=== PATIENT | female | born 1990 | race Hispanic/Latino ===

== ENCOUNTER 2018-07-18 14:01 | Emergency (ER) | payer OTHER ==
--- OUTSIDE RECORDS SUMMARY | 2018-07-18 14:04 | XMS REPORT ---
:1990 Author Organization eClinicalWorks Care Team Providers Name Role Phone Kp Lenny Provider Role Unavailable Allergies No Known Allergies Problems Problem Type Condition Code Onset Dates Condition Status Assessment Prediabetes R73.03 Active Assessment Learning difficulty F81.9 Active Assessment Elevated BP without diagnosis of R03.0 Active hypertension Assessment Adult BMI 50.0-59.9 kg/sq m Z68.43 Active Problem Iron deficiency anemia due to D50.0 Active chronic blood loss Problem STEFANIA (obstructive sleep apnea) G47.33 Active Problem Learning difficulty F81.9 Active Problem Adult BMI 50.0-59.9 kg/sq m Z68.43 Active Assessment Iron deficiency anemia due to D50.0 Active chronic blood loss Problem Elevated BP without diagnosis of R03.0 Active hypertension Problem Prediabetes R73.03 Active Medications Medication Code Code Instructions Start End Date Status Dosage System Date Estarylla [facility] 32542580829 0.25-35 MG-MCG Active 1 tablet Orally Once a day Metformin HCl [facility] 96376823669 500 MG Orally Active 1 tablet Twice a day with meals Ferrous [facility] 87421189613 325 (65 Fe) MG Active 1 tablet Sulfate Orally Twice a day Results No Known Results Summary Purpose eClinicalWorks Submission
--- OUTSIDE RECORDS SUMMARY | 2018-07-18 14:04 | XMS REPORT ---
:1990 Author Organization eClinicalWorks Care Team Providers Name Role Phone Flora Goodrichh Provider Role Unavailable Allergies, Adverse Reactions, Alerts Substance Reaction Event Type N.K.D.A. Info Not Available Non Drug Allergy Problems Problem Type Condition Code Onset Dates Condition Status Assessment Prediabetes R73.03 Active Assessment STEFANIA (obstructive sleep apnea) G47.33 Active Problem Elevated BP without diagnosis of R03.0 Active hypertension Problem Prediabetes R73.03 Active Problem STEFANIA (obstructive sleep apnea) G47.33 Active Assessment Adult BMI 50.0-59.9 kg/sq m Z68.43 Active Assessment Elevated BP without diagnosis of R03.0 Active hypertension Problem Adult BMI 50.0-59.9 kg/sq m Z68.43 Active Assessment Encounter for preventative adult Z00.01 Active health care exam with abnormal findings Medications Medication Code Code Instructions Start End Date Status Dosage System Date Estarylla [facility] 16801251464 0.25-35 MG-MCG Active 1 tablet Orally Once a day Metformin HCl [facility] 37292943898 500 MG Orally Active 1 tablet Twice a day with meals Results No Known Results Summary Purpose eClinicalWorks Submission
--- OUTSIDE RECORDS SUMMARY | 2018-07-18 14:05 | XMS REPORT ---
:1990 Author Organization eClinicalWorks Care Team Providers Name Role Phone Lenny Goodrich Provider Role Unavailable Allergies No Known Allergies Problems Problem Type Condition Code Onset Dates Condition Status Problem Iron deficiency anemia due to D50.0 Active chronic blood loss Problem STEFANIA (obstructive sleep apnea) G47.33 Active Problem Learning difficulty F81.9 Active Problem Adult BMI 50.0-59.9 kg/sq m Z68.43 Active Problem Elevated BP without diagnosis of R03.0 Active hypertension Problem Prediabetes R73.03 Active Medications No Known Medications Results No Known Results Summary Purpose eClinicalWorks Submission
--- OUTSIDE RECORDS SUMMARY | 2018-07-18 14:05 | XMS REPORT ---
:1990 Author Organization eClinicalWorks Care Team Providers Name Role Phone Lenny Goodrich Provider Role Unavailable Allergies, Adverse Reactions, Alerts Substance Reaction Event Type N.K.D.A. Info Not Available Non Drug Allergy Problems Problem Type Condition Code Onset Dates Condition Status Assessment Neutrophilic leukocytosis D72.9 Active Problem Adult BMI 50.0-59.9 kg/sq m Z68.43 Active Problem Intellectual disability F79 Active Problem Neutrophilic leukocytosis D72.9 Active Problem Learning difficulty F81.9 Active Problem Elevated BP without diagnosis of R03.0 Active hypertension Problem Prediabetes R73.03 Active Problem Iron deficiency anemia due to D50.0 Active chronic blood loss Problem STEFANIA (obstructive sleep apnea) G47.33 Active Assessment Prediabetes R73.03 Active Assessment Elevated BP without diagnosis of R03.0 Active hypertension Assessment Learning difficulty F81.9 Active Assessment Intellectual disability F79 Active Assessment Adult BMI 50.0-59.9 kg/sq m Z68.43 Active Assessment Iron deficiency anemia due to D50.0 Active chronic blood loss Medications Medication Code Code Instructions Start End Date Status Dosage System Date Metformin HCl [facility] 44202029983 500 MG Orally Active 1 tablet Twice a day with meals Ferrous [facility] 97327011864 325 (65 Fe) MG Active 1 tablet Sulfate Orally Twice a day Estarylla [facility] [id number] 0.25-35 MG-MCG Active 1 tablet Orally Once a day Results No Known Results Summary Purpose eClinicalWorks Submission
--- OUTSIDE RECORDS SUMMARY | 2018-07-18 14:05 | XMS REPORT ---
:1990 Author Organization eClinicalWorks Care Team Providers Name Role Phone Lenny Goodrich Provider Role Unavailable Allergies No Known Allergies Problems Problem Type Condition Code Onset Dates Condition Status Assessment Iron deficiency anemia due to D50.0 Active chronic blood loss Problem Iron deficiency anemia due to D50.0 Active chronic blood loss Problem STEFANIA (obstructive sleep apnea) G47.33 Active Problem Learning difficulty F81.9 Active Problem Adult BMI 50.0-59.9 kg/sq m Z68.43 Active Problem Elevated BP without diagnosis of R03.0 Active hypertension Problem Prediabetes R73.03 Active Medications Medication Code Code Instructions Start End Date Status Dosage System Date Ferrous [facility] [id number] 325 (65 Fe) MG Active 1 tablet Sulfate Orally Twice a day Results No Known Results Summary Purpose eClinicalWorks Submission
--- NOTE | 2018-07-18 14:47 | RAD REPORT ---
EXAM DESCRIPTION: CT - Head Brain Wo Cont - 07/18/2018 2:38 pm CLINICAL HISTORY: HEADACHE Drowsiness COMPARISON: No comparisons TECHNIQUE: All CT scans are performed using dose optimization technique as appropriate and may inclu de automated exposure control or mA/KV adjustment according to patient size. FINDINGS: No intracranial hemorrhage, hydrocephalus or extra-axial fluid collection.No areas of brai n edema or evidence of midline shift. 12 mm mucous retention cyst versus polyp is present in the right maxillary antrum. The paranasal sinu ses and mastoids are otherwise clear. The calvarium is intact. IMPRESSION: No acute intracranial abnormality.
[2018-07-18 14:58] LABS: Urine Blood NEGATIVE (NEG); Urine Glucose NEGATIVE (NEG); Urine Protein 1+ (NEG); Urine Specific Gravity 1.025 (1.005-1.030)
[2018-07-18] MEDS ORDERED: METOCLOPRAMIDE 10 MG/2mL INJ ONE (15:56)
[2018-07-18] MEDS ORDERED: KETOROLAC 30 MG/ML INJ ONE (15:57)
[2018-07-18] MEDS ORDERED: NA CHLORIDE 0.9% 1,000 ML ONE (15:57)
--- NOTE | 2018-07-18 16:50 | EDPHYS ---
Physician Documentation [facility] Name: Cherise Seay Age: 27 yrs Sex: Female : 1990 Arrival Date: 07/18/2018 Time: 14:04 Bed 23 Private MD: Flora Goodrichh ED Physician Colt Mai HPI: 07/18 16:08 This 27 yrs old Female presents to ER via Ambulatory with complaints of gs Headache, Vomiting, Dizziness. 16:08 The patient complains of pain to the forehead. The patient describes the headache as gs throbbing. Onset: The symptoms/episode began/occurred suddenly, this morning, at 08:00. Associated signs and symptoms: Pertinent positives: vomiting, Pertinent negatives: altered mental status. Severity of symptoms: At its worst the pain was severe, in the emergency department the pain has improved, moderately. Headache History: The patient has had previous headaches and this one is similar to previous episodes, and this one is less severe than previous episodes. The symptoms are alleviated by nothing. the symptoms are aggravated by nothing. The patient has experienced similar episodes in the past, a few times. The patient has not recently seen a physician. 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 - Social history:: Smoking status: Patient/guardian denies using tobacco. - Ebola Screening: : Patient denies travel to an Ebola-affected area in the 21 days before illness onset. ROS: 16:08 All other systems are negative. gs Exam: 16:12 Head/Face: Normocephalic, atraumatic. Eyes: Pupils equal round and reactive to light, gs extra-ocular motions intact. Lids and lashes normal. Conjunctiva and sclera are non-icteric and not injected. Cornea within normal limits. Periorbital areas with no swelling, redness, or edema. ENT: Nares patent. No nasal discharge, no septal abnormalities noted. Tympanic membranes are normal and external auditory canals are clear. Oropharynx with no redness, swelling, or masses, exudates, or evidence of obstruction, uvula midline. Mucous membranes moist. Neck: Trachea midline, no thyromegaly or masses palpated, and no cervical lymphadenopathy. Supple, full range of motion without nuchal rigidity, or vertebral point tenderness. No Meningismus. Chest/axilla: Normal chest wall appearance and motion. Nontender with no deformity. No lesions are appreciated. Cardiovascular: Regular rate and rhythm with a normal S1 and S2. No gallops, murmurs, or rubs. Normal PMI, no JVD. No pulse deficits. Respiratory: Lungs have equal breath sounds bilaterally, clear to auscultation and percussion. No rales, rhonchi or wheezes noted. No increased work of breathing, no retractions or nasal flaring. Abdomen/GI: Soft, non-tender, with normal bowel sounds. No distension or tympany. No guarding or rebound. No evidence of tenderness throughout. Back: No spinal tenderness. No costovertebral tenderness. Full range of motion. Skin: Warm, dry with normal turgor. Normal color with no rashes, no lesions, and no evidence of cellulitis. MS/ Extremity: Pulses equal, no cyanosis. Neurovascular intact. Full, normal range of motion. Neuro: Awake and alert, GCS 15, oriented to person, place, time, and situation. Cranial nerves II-XII grossly intact. Motor strength 5/5 in all extremities. Sensory grossly intact. Cerebellar exam normal. Normal gait. 16:12 Constitutional: The patient appears alert, awake. Vital Signs: 14:14 BP 122 / 60; Pulse 80; Resp 18; Temp 97.7; Pulse Ox 100% on R/A; Height 4 ft. 9 in. aj1 (144.78 cm) (R); Pain 10/10; 15:28 BP 121 / 86; Pulse 77; Resp 16; Pulse Ox 98% on R/A; kr2 16:30 BP 114 / 72; Pulse 75; Resp 16; Pulse Ox 100% on R/A; kr2 16:39 Pulse 75; Resp 18; Pulse Ox 100% on R/A; mg2 MDM: 15:35 Patient medically screened. gs 16:12 Differential diagnosis: migraine, subarachnoid bleed, tension headache, vasomotor gs headache. Data reviewed: vital signs, nurses notes. Response to treatment: the patient's symptoms have resolved after treatment, and as a result, I will discharge patient. 07/18 14:36 Order name: Urine Dipstick--Ancillary (enter results); Complete Time: 15:20 bd 07/18 14:36 Order name: Urine --Ancillary (enter results); Complete Time: 15:20 bd 07/18 14:18 Order name: CT Head Brain wo Cont; Complete Time: 15:20 aj1 07/18 15:39 Order name: Fingerstick Glucose; Complete Time: 15:55 gs Administered Medications: 15:54 Drug: NS 0.9% 1000 ml Route: IV; Rate: 1 bolus; Site: left antecubital; kr2 17:00 Follow up: Response: No adverse reaction; IV Status: Completed infusion kr2 15:54 Drug: Reglan 5 mg Route: IVP; Site: left antecubital; kr2 16:30 Follow up: Response: No adverse reaction; Nausea is decreased kr2 15:54 Drug: TORadol 15 mg Route: IVP; Site: left antecubital; kr2 16:30 Follow up: Response: No adverse reaction; Pain is decreased kr2 Point of Care Testing: Blood Glucose: 15:50 Blood Glucose: 129 mg/dL; kr2 Ranges: Critical Glucose Levels:Adult <50 mg/dl or >400 mg/dl <40 mg/dl or >180 mg/dl Disposition: 07/18/18 16:49 Discharged to Home. Impression: Headache. - Condition is Stable. - Discharge Instructions: General Headache Without Cause. - Medication Reconciliation Form, Thank You Letter, Antibiotic Education, Prescription Opioid Use form. - Follow up: Asher Jackman MD; When: 2 - 3 days; Reason: Re-evaluation by your physician. Signatures: Dispatcher [employer] Angi Garcia RN RN aj1 Colt Mai MD MD gs Reaves, Karey, RN RN kr2 Corrections: (The following items were deleted from the chart) 17:03 16:49 07/18/2018 16:49 Discharged to Home. Impression: Headache. Condition is Stable. kr2 Forms are Medication Reconciliation Form, Thank You Letter, Antibiotic Education, Prescription Opioid Use. Follow up: Asher Jackman; When: 2 - 3 days; Reason: Re-evaluation by your physician. gs
--- NOTE | 2018-07-18 16:50 | ER ---
Nurse's Notes [facility] Name: Cherise Seay Age: 27 yrs Sex: Female : 1990 Arrival Date: 07/18/2018 Time: 14:04 Bed 23 Private MD: Lenny Goodrich Diagnosis: Headache Presentation: 07/18 14:12 Presenting complaint: Patient states: Headache, vomiting, and dizziness since 0800 this aj1 morning. Denies head injury, denies LOC. Denies fever. Transition of care: patient was not received from another setting of care. Onset of symptoms was July 18, 2018 at 08:00. Risk Assessment: Do you want to hurt yourself or someone else? Patient reports no desire to harm self or others. Initial Sepsis Screen: Does the patient meet any 2 criteria? No. Patient's initial sepsis screen is negative. Does the patient have a suspected source of infection? No. Patient's initial sepsis screen is negative. Care prior to arrival: None. 14:12 Method Of Arrival: Ambulatory aj 14:12 Acuity: BORIS 3 aj1 Triage Assessment: 14:14 Headache History: The patient has had previous headaches and this one is more severe aj1 than previous episodes. General: Appears uncomfortable, Behavior is calm, cooperative, appropriate for age. Pain: Complains of pain in forehead Pain does not radiate. Pain currently is 10 out of 10 on a pain scale. Pain began 6 hours ago Also complains of nausea, dizziness, vomiting. Neuro: Level of Consciousness is awake, alert, Oriented to person, place, time, situation, Sheet Metal Fabricator are equal bilaterally Moves all extremities. Full function Gait is steady, Speech is normal, Facial symmetry appears normal, Reports dizziness, headache vomiting. Cardiovascular: Patient's skin is warm and dry. Respiratory: Airway is patent Respiratory effort is even, unlabored, Respiratory pattern is regular, symmetrical. 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 - Social history:: Smoking status: Patient/guardian denies using tobacco. - Ebola Screening: : Patient denies travel to an Ebola-affected area in the 21 days before illness onset. Screenin:27 Abuse screen: Denies threats or abuse. Denies injuries from another. Nutritional kr2 screening: No deficits noted. Tuberculosis screening: No symptoms or risk factors identified. Fall Risk None identified. Assessment: 15:25 General: Appears in no apparent distress. uncomfortable, obese, well groomed, Behavior kr2 is calm, cooperative, appropriate for age. Pain: Complains of pain in forehead Pain radiates to top of head. Neuro: Level of Consciousness is awake, alert, obeys commands, Oriented to person, place, time, situation, Sheet Metal Fabricator are equal bilaterally Moves all extremities. Speech is normal, Facial symmetry appears normal, Pupils are PERRLA, Intact. Neuro: Reports dizziness. Cardiovascular: Capillary refill < 3 seconds in bilateral fingers Patient's skin is warm and dry. Respiratory: Airway is patent Respiratory effort is even, unlabored, Respiratory pattern is regular, symmetrical. GI: Abdomen is non-distended, obese, Reports nausea, vomiting, since 0800 this morning. : Denies burning with urination. EENT: Oral mucosa is moist. Derm: Skin is intact, is healthy with good turgor, Skin is pink, warm \T\ dry. Musculoskeletal: Circulation, motion, and sensation intact. 16:30 Reassessment: Patient appears in no apparent distress at this time. Patient and/or kr2 family updated on plan of care and expected duration. Pain level reassessed. Patient is alert, oriented x 3, equal unlabored respirations, skin warm/dry/pink. Patient denies pain at this time. Patient states feeling better. Patient states symptoms have improved. Vital Signs: 14:14 BP 122 / 60; Pulse 80; Resp 18; Temp 97.7; Pulse Ox 100% on R/A; Height 4 ft. 9 in. aj1 (144.78 cm) (R); Pain 10/10; 15:28 BP 121 / 86; Pulse 77; Resp 16; Pulse Ox 98% on R/A; kr2 16:30 BP 114 / 72; Pulse 75; Resp 16; Pulse Ox 100% on R/A; kr2 16:39 Pulse 75; Resp 18; Pulse Ox 100% on R/A; mg2 ED Course: 14:04 Patient arrived in ED. as 14:04 Lenny Goodrich DO is Private Physician. as 14:14 Triage completed. aj1 14:14 Arm band placed on Patient placed in waiting room, Patient notified of wait time. aj1 14:38 CT Head Brain wo Cont In Process Unspecified. EDMS 15:21 Colt Mai MD is Attending Physician. gs 15:25 Chelo Lomeli, PATRICIA is Primary Nurse. kr2 15:28 Patient has correct armband on for positive identification. Bed in low position. Call kr2 light in reach. Side rails up X2. Adult w/ patient. Pulse ox on. NIBP on. Door closed. Warm blanket given. Head of bed elevated. 15:50 Inserted saline lock: 22 gauge in left antecubital area, using aseptic technique. kr2 16:49 Asher Jackman MD is Referral Physician. gs 17:01 No provider procedures requiring assistance completed. IV discontinued, intact, kr2 bleeding controlled, No redness/swelling at site. Pressure dressing applied. Administered Medications: 15:54 Drug: NS 0.9% 1000 ml Route: IV; Rate: 1 bolus; Site: left antecubital; kr2 17:00 Follow up: Response: No adverse reaction; IV Status: Completed infusion kr2 15:54 Drug: Reglan 5 mg Route: IVP; Site: left antecubital; kr2 16:30 Follow up: Response: No adverse reaction; Nausea is decreased kr2 15:54 Drug: TORadol 15 mg Route: IVP; Site: left antecubital; kr2 16:30 Follow up: Response: No adverse reaction; Pain is decreased kr2 Point of Care Testing: Blood Glucose: 15:50 Blood Glucose: 129 mg/dL; kr2 Ranges: Outcome: 16:49 Discharge ordered by . gs 17:01 Discharged to home ambulatory, with family. kr2 17:01 Condition: good 17:01 Discharge instructions given to patient, Instructed on discharge instructions, follow up and referral plans. Demonstrated understanding of instructions, follow-up care. 17:03 Patient left the ED. kr2 Signatures: Dispatcher [employer] EDOK Angi Padilla RN RN aj1 Shamika Pate as Colt Mai MD MD Chelo Lomeli RN RN kr2 Gardose, Amaury, RN RN mg2
[2018-07-18 17:07] VITALS: TEMP 97.7
[2018-07-18 17:09] VITALS: BP 114/72; O2SAT 100
== END 2018-07-18 17:03 | disposition home or self-care (01) ==
LOC: ER 14:01
DX: R51 Headache (principal); E11.9 Type 2 diabetes mellitus without complications
CPT/HCPCS: 70450; 81003; 81025; 82962; 96361; 96374; 96375; 99284; J2765; J7030

== ENCOUNTER 2021-04-11 22:32 | Emergency (ER) | payer MEDICAID, OTHER ==
--- OUTSIDE RECORDS SUMMARY | 2021-04-11 22:41 | XMS REPORT | Continuity of Care Document ---
:1990 Author Organization [facility] t Address [address] [place] [address] Care Team Providers Name Role Phone Linh MARY Attending Clinician Mayte Earl Attending Clinician Angela Delaney MD Attending Clinician RICARDO DELANEY Attending Clinician Unavailable Ricardo Delaney MD Attending Clinician [phone] Attending Clinician Christina Desir NP Attending Clinician Chelo Samuels PhD Attending Clinician JACK RAMIRES Attending Clinician Unavailable RICARDO DELANEY Admitting Clinician Unavailable JACK RAMIRES Admitting Clinician Unavailable Payers Payer Name Policy Type Policy Effective Date Expiration Date Sour ce Number PACE [id number] [facility] MEDICAIDMEDICAID 00:00:00 - [place] [id number]/ Ce nter 9-Present Problems Condition Condition Condition Status Onset Resolution Last Treating Co mments Source Name Details Category Date Date Treatment Clinician Date Morbid Morbid Disease Active [facility] Allergies, Adverse Reactions, Alerts This patient has no known allergies or adverse reactions. Social History Social Habit Start Date Stop Date Quantity Comments Source History [facility] - Alcohol Std Drinks [facility] [place] Binge Medical Dev ter Sex Assigned At [facility] Tobacco use and 2020-05-22 2020-05-22 [facility] used [facility] - exposure 00:00:00 00:00:00 Medical [place] Alcohol intake 2020-05-22 2020-05-22 Current [facility] es - 00:00:00 00:00:00 non-drinker of Medical Ce nter alcohol (finding) History [facility] 2019-04-22 2019-04-[address] [facility] - Alcohol Frequency 00:00:00 00:00:00 [facility] Smoking Status Start Date Stop Date Source Never smoker [facility] edical [place] Medications Ordered Filled Start Stop Current Ordering Indication Dosage Frequency Signature Comments Components Source Medication Medication Date Date Medication? Clinician (SIG) Name Name norgestimat Yes 1{tbl} QD Take [address] e-ethinyl 8-13 tablet by [facility] - estradiol 15:09: mouth Medical (FEMYNOR) 20 daily. Center 0.25-35 mg-mcg per tablet metFORMIN 2020- No 1000mg Take 1,[address] [facility] (GLUCOPHAGE 8- 08-13 mg by [facility] - ) 1000 MG 09:24: 00:00 mouth 2 Medi nicole tablet 40 :00 (two) Center times daily with breakfast and dinner. dapaglifloz 2019- 2020- No QD Take by [facility] in-metformi 8- 08-13 mouth [facility] - n (XIGDUO 09:24: 00:00 daily. Medic al XR) 5-1,000 40 :00 Center mg per ER tablet famotidine 2019- 2020- No 20mg QD Take [address] (PEPCID) 20 8-13 11-11 tablet (20 L ukes - MG tablet 00:00: 23:59 mg total) Me dical 00 :00 by mouth Center daily for 90 days. acetaminoph 2020-0 2020- No 1000mg Take [address] en 05-21- tablets [facility] - (TYLENOL) 00:00: 23:59 (1,000 mg Me dical 500 MG 00 :00 total) by Center tablet mouth every 6 (six) hours for 10 days. traMADoL 2019- No 50mg Take [address] (ULTRAM) 50 05-21- tablet (50 L ukes - mg tablet 00:00: 23:59 mg total) Me dical 00 :00 by mouth Center every 6 (six) hours as needed for up to 10 days. Max Daily Amount: 200 mg traMADoL 2019- No 50mg Take [address] (ULTRAM) 50 05-21 tablet (50 L ukes - mg tablet 00:00: 00:00 mg total) Me dical 00 :00 by mouth Center every 6 (six) hours as needed for up to 10 days. Max Daily Amount: 200 mg Xigduo XR Xigduo XR 2019- No Lenny [address] 02-04- [facility] [facility] - 00:00: 00:00 Memoria 00 :00 [facility] ent [facility] Ferrous Ferrous Yes Lenny [address] Sulfate Sulfate [facility] Estarylla Estarylla Yes Lenny [address] [facility] kes - Memoria [facility] ent [facility] Immunizations Ordered Filled Immunization Date Status Comments [facility] e Immunization Name Name Afluria single dose Afluria single dose 2019-09-[address] [facility] - 00:00:00 [facility] Vital Signs Vital Name Observation Time Observation Value Comments Source Heart rate 2020-05-21 11:55:00 70 /min [facility] Respiratory rate 2020-05-21 11:55:00 18 /min [facility] Oxygen saturation in 2020-05-21 11:55:00 96 /min [facility] - Arterial blood by Medical Ce nter Pulse oximetry Systolic blood 2020-05-21 11:30:00 138 mm[Hg] [facility] Diastolic blood 2020-05-21 11:30:00 63 mm[Hg] [facility] S t [facility] Body temperature 2020-05-21 11:30:00 36.56 Charlette [facility] Body height 2020-05-20 09:00:00 144.8 cm [facility] Body weight 2020-05-20 09:00:00 113.2 kg [facility] BMI 2020-05-20 09:00:00 54.00 kg/m2 [facility] Procedures Procedure Date / Time Performed Performing Clinician [facility] e RHYTHM STRIP - SCAN 2020-05-22 13:31:17 Provider, Wong [facility] POCT-GLUCOSE METER 2020-05-21 11:32:00 Nanci Delaney [facility] POCT-GLUCOSE METER 2020-05-21 07:36:00 Nanci Delaney [facility] BASIC METABOLIC PANEL 2020-05-21 05:55:00 Stan Nelson [address] CBC W/PLT COUNT & AUTO 2020-05-21 05:55[facility] 2020-05-21 05:55:00 [facility] Stan [facility] PHOSPHORUS 2020-05-21 05:55:00 [facility] POCT-GLUCOSE METER 2020-05-21 05:49:00 Nanci Delaney [facility] POCT-GLUCOSE METER 2020-05-20 18:27:00 Nanci Delaney [facility] TISSUE EXAM 2020-05-20 17:33:00 Nanci Delaney [facility] ROBOTIC 2020-05-20 13:35:[address] [facility] - LAPAROSCOPY,LONGITUDINAL [facility] SLEEVE GASTRECTOMY UPPER ENDOSCOPY 2020-05-20 13:35:00 Nanci Delaney [facility] PROCEDURE W/ DAVINCI XI 2020-05-20 13:35:00 Racheal Delaney [facility] BASIC METABOLIC PANEL 2020-05-20 10:06:00 Federico Ritter [address] HEMOGLOBIN 2020-05-20 10:06:00 Federico Ritter [facility] POCT , URINE 2020-05-20 09:48:00 Federico Ritter [facility] POCT-GLUCOSE METER 2020-05-20 09:35:00 Nanci Delaney [facility] Plan of Care Planned Activity Planned Date Details Comments Source Future Scheduled 2020-10-[address] [facility] - Test 00:00:00 (12+) [code = [facility] DEPRESSION SCREENING (12+)] Future Scheduled [address] [facility] - Test 00:00:00 malignant neoplasm of Medica l Center cervix (procedure) [code = 111195744] Future Scheduled [address] [facility] - Test 00:00:00 (procedure) [code = [facility] 06387876] Future Scheduled 2011 DTAP/TDAP/TD VACCINES [facility] Test 00:00:00 (1 - Tdap) [code = Medical C enter DTAP/TDAP/TD VACCINES (1 - Tdap)] Future Scheduled 2010 HEPATITIS C SCREENING [facility] - Test 00:00:00 [code = HEPATITIS C Medical Center SCREENING] Future Scheduled 2008 COVID-19 VACCINE (1) [facility] - Test 00:00:00 [code = COVID-[address] VACCINE (1)] Encounters Start End Encounter Admission Attending Care Care Encounter Source Date/Time Date/Time Type Type Clinicians Facility Department ID 2021-02-17 2021-02-17 Outpatient [facility] [id number] [facility] 2020-11-18 2020-11-18 Outpatient [facility] [id number] [facility] 2020-10-20 2020-10-20 Outpatient [facility] [id number] [facility] 2020-08-26 2020-08-26 Outpatient [facility] [id number] [facility] 2020-08-11 2020-08-11 Office CARLOS Melton [id number] 13:34:04 15:28:15 Visit Anabelle AMBULATOR 350.1.13.21 Y 0.2.7.2.686 [id number] 2020-08-11 2020-08-11 Office CARLOS Wynne [id number] 12:57:02 15:27:55 Visit Vimbai A AMBULATOR 350.1.13.21 Y 0.2.7.2.686 [id number] 2020-08-06 2020-08-06 Outpatient [facility] [id number] [facility] 2020-07-20 2020-07-20 Outpatient [facility] [id number] [facility] 2020-07-06 2020-07-06 Outpatient [facility] [id number] [facility] 2020-06-23 2020-06-23 [facility] [id number] 13:50:00 13:50:00 [facility] 2020-06-11 2020-06-11 Office Nolvia [facility] [id number] 14:22:31 16:46:21 Visit Nanci gresham AMBULATOR 350.1.13.21 G Y 0.2.7.2.686 [id number] 2020-06-11 2020-06-11 Office LinhCARLOS [id number] 14:23:28 16:45:22 Visit Anabelle AMBULATOR 350.1.13.21 Y 0.2.7.2.686 [id number] 2020-05-28 2020-05-28 Office CalebKwesijoshua [facility] [id number] 11:37:39 15:53:47 Visit Nanci gresham AMBULATOR 350.1.13.21 G Y 0.2.7.2.686 [id number] 2020-05-28 2020-05-28 Office Linh [facility] [id number] 11:37:17 15:53:20 Visit Anabelle AMBULATOR 350.1.13.21 Y 0.2.7.2.686 [id number] 2020-05-06 2020-05-06 [facility] [id number] 10:45:00 10:45:[address] Luke s - Drive [facility] Medicine Medicine Outpati ent Clinics 2020-04-24 2020-04-24 [facility] [id number] 08:24:00 08:24:[address] Luke s - Drive [facility] Medicine Outpati ent Clinics 2020-03-25 2020-03-25 [facility] [id number] 14:45:00 14:45:[address] Luke s - Drive [facility] Medicine Outpati ent Clinics 2020-02-27 2020-02-27 [facility] [id number] 10:00:00 10:00:[address] Luke s - Drive [facility] Medicine Outpati ent Clinics 2020-02-05 2020-02-05 [facility] [id number] 10:30:00 10:30:[address] Luke s - Drive [facility] Medicine Outpati ent Clinics 2019-11-06 2019-11-06 [facility] [id number] 10:15:00 10:15:[address] Luke s - Drive [facility] Medicine Medicine Outpati ent Clinics 2019-10-31 2019-10-31 Office KimbleRamesh [facility] [id number] 09:18:07 13:13:00 Visit Nanci gresham AMBULATOR 350.1.13.21 G Y 0.2.7.2.686 [id number] 2019-10-29 2019-10-29 [facility] [id number] 16:46:00 16:46:00 [facility] 2019-09-02 2019-09-02 [facility] [id number] [facility] St 14:15:00 14:15:00 [facility] 2019-07-25 2019-07-25 Office CARLOS Samuels [id number] 09:45:38 11:06:08 Visit Swapna AMBULATOR 350.1.13.21 Chelo Y 0.2.7.2.686 [id number] 2019-07-25 2019-07-25 Office CARLOS Melton [id number] 08:36:08 10:04:38 Visit Anabelle AMBULATOR 350.1.13.21 Y 0.2.7.2.686 [id number] 2019-07-08 2019-07-08 Outpatient Ruthie Hendrickst [id number] [facility] [address] 11:30:00 11:30:00 [facility] 2019-06-20 2019-06-20 Office CARLOS Samuels [id number] 11:59:31 13:59:31 Visit Swapna AMBULATOR 350.1.13.21 Chelo Y 0.2.7.2.686 [id number] 2019-06-17 2019-06-17 Office CARLOS Melton [id number] 09:18:50 13:16:45 Visit Anabelle AMBULATOR 350.1.13.21 Y 0.2.7.2.686 [id number] 2019-05-15 2019-05-15 Office CARLOS Melton [id number] 12:18:21 14:39:30 Visit Anabelle AMBULATOR 350.1.13.21 Y 0.2.7.2.686 [id number] 2018-11-30 2018-11-30 [facility] [id number] 09:30:00 09:30:00 [place] [facility] s - Drive [facility] Medicine Outpati ent Clinics 2018-07-25 2018-07-25 [facility] [id number] 14:30:00 14:30:00 [place] [employer] s - Drive [facility] Medicine Outpati ent Clinics 2018-05-25 2018-05-25 [facility] [id number] 10:00:00 10:00:00 [place] [employer] - Drive [facility] Medicine Outpati ent Clinics 2018-05-15 2018-05-15 [facility] [id number] 15:05:00 15:05:00 [place] [employer] - Drive [facility] Medicine Outpati ent Clinics 2018-04-17 2018-04-17 [facility] [id number] 14:59:00 14:59:00 [place] [employer] - Drive [facility] Medicine Outpati ent Clinics 2018-03-14 2018-03-14 [facility] [id number] 11:15:00 11:15:00 [place] [employer] - [place] [facility] Medicine Outpati ent Clinics 2018-01-24 2018-01-24 [facility] [id number] 13:30:00 13:30:00 t Collective s - Halalati [facility] Outpati ent Clinics Results Test Description Test Time Test Comments Results Result Comments Source Tissue Exam 2020-05-27 18:22:00 Test Item Value Reference Range Interpretation Comme nts Case Report (test code = 104) Surgical Pathology Report Case: [id number] Authorizing Provider: Nanci Delaney Collected: 05/20/2020 05:33 PM MD Ricardo Ordering Location: [facility] PERIOPER[facility]IVE Received: 05/21/2020 08:58 AM SERVICES Pathologist: Jennifer León MD Specimen: Stomach, partial gastrectomy ADDENDUM (test code = 3381) [id number]uTIGsiMR uZ [file] DgLWmhQUUrfVhwaB4aTeHoAwYsSZpmYXB7 DIAGNOSIS (test code = 3220) k8vyyQPfXZZzk6gzMDFkvPKtZzIdRtFpFqQeBp pcd DDiYDwvhlRoEMibb0WtU7OuCvFwCIlfblHkLVSkTo kgjzvwTIBtWDW5ilTdHYFvJQzuIWWcCUrpZk5ysKP ceVfiZeSwALPju6rspxPLbjmhpMj5l3dwMLMoIoK7 vSSaKFamA7vavkDtfRMcMZJgVRh1zZ11QLMdaZ1zu POeWRocplUwFjU7CLbhRVFiWpY7KXTspXPeAIZwX0 jfCCRtYNrbNRPrGQhnyEVhXTS0iHvuz3V7fKFqgMV fuAgoIhHtNoUvABLLw9WvJMq0qNexA0TwUVAoMlU3 tUGqGFKcTRyjPRYnNZJulvM4vS63EWkwhnL2pGMjg 7Npq63mu885uX3dbMPoUPD2KMXeHXJdaUMpEMUuVM M3KQHrbLBcR7w8DlFcxLTjW0U3GoKkvDSiP3Y0EyQ wjTMsY9C3BsVexEVyGPEsrYPnCo0ytTHnuOQacz2z td67PEG0v1VhoNvrXDL2YER9AkHoWf2soKQaYHKvP Z1cJwVkkKFsGSMyfj71lSupKLvqjnDipZ8wPqCiQK LdbYChRBAfLF4yqIIbGAJfnT0djnldGFHfRuEuyqm pXRKooWuctiIaSj7urJgrXHS6BPqzB4nigB4gDpH2 ANlfQ4vyxE3rKUe8STqjsNO7GLYeaX9pDF7woejkl 4ncGkPhCP4sblziy5giXoGrWP9bhtf2e7owBrRaDC 7iahkfd4czScAzZUivDXFakbcvSLPph9JvlhxkGTZ wf3YmC6FkqHpyZ56bgNwqK38jZMBcdVubsT1coRkn eG5oHkGiOcSaUDuecUzuyTKmwzpdNTtdfqXbBNzew wguSCDvIEkgZ3faKxKqCOHznTiiVYwbw2UgDDRkDK WmZgEhE5VPQYVNXCogDHXDNPgSTTXUSHOOMjTEON4 CVLgfmIRdPUWrIILDDf8TNOUnI5IAZBTOYIePLGaN ZCqsHlGBR6FCPrGxAGhRBUbURYYrIv3KOIyPXVIBY ZDonzMiVTCZLtLHEaZEL8XUBvPLWJ0QXKFRWUQZLI LcITLAC2WRUHHTCAFDYdXARHbFH30TLzGEWOEYVV7 lpVThBMYwYMpWPnYWTE2nF7IMMnGOBPACETcWYSZV FvSJBKjJA88ZWQQPYEHlSZoNH7IWOGlBZFZVOB6RK JZVNyN0PKWEQWJMDMOAATCZGI9KHSGWVTgPRZWIQK oQA2ebTQF6f3hvkYFtJTWccQKeSEPxNCgpslObQKU mHlrrfpldZXXlWNH8wnWsNOJsBOioTVVfJBtwFg8e gSQkrYzrHdIdSAGuy2wqbpMHwaufaSg6s3fkMDJpR qY7pALoAKsdR2wjdpWnaLDdADBpGFd1hJ60FWBofF 3grOLcMHtplbBzYtD2KJjaDAGdAaG8BDBxzFEjYRV nT2khNETiPCknYUGtQUnzvPNhCAD8eBoqo3S4pJQz pMXjkDgvQqWrAzAdNdUAl2SyBVk6nYoqU3GoTPIjA vW1kVYdTXZcCWhmRIWgQXXlhuL4rX23TKkoaoY7iJ Kwf8Ofq45na854wS2hmWYoUXR9HULqSNXbzVXqRKE aNII1EMQnaMWsS2auXBNcFA0pzdyhZIcjANsuRZVl aXA5ITLidABqG8ZoPFEtRMroCKEakfo5YkHcDa9gy NIkqRxeIGujr7zja6qihFSgEzc1TWVmRiUaDsiuCQ aww9Oic8sgSQFlcr2zIKU4qEGnkSvyk7Z0vKYxBSG csMSuQDNbUU5ehQIoDORpuA4ugmcbJEGtEuJyimfj QTWniEzjbeDtMv8ttArlQRL1GKqlW6cjsW1nGxC4Y IagN3qjwI3jCQk1HDyvFMByiCV6lsP2NRBclJAkA5 RiuD4eMRKhZX8fyyt6c0ttFPD9LTgtHYUcRqD7bfW 3TQTmfXTuQDKfqXnpLCdgi528BEH1SpOmBBXou1Ic K4XhxAafL15ioOtuA45wMKHifOyarM7ctFtxwD3hP tGlVtPxXWamdEzgCI3iTOUaK3mjmURqKZBxNJEdN7 zbRuPpvU3biBznKIjadfAfEZUkWkm4ZBJhwHQiVJI xHfy5INKdVIAcD59ebdyyWNY2tA7gt6ott9AcKRbs NIJ0EAApn84jHLlekcS9ATglZa8pFrRcMBD4BAikJ XJ9fQ== CPT Code(s) (test code = 3357) i8sftUAiNOEfsGPaLsWvYTHsICAtd6jeGANf bGFuZ lIyEgCcPtAfOnxtdUWiNPCkDnQub2myl747uOQze4 okJOEzMeD5vBNrPYLilJOcS046s8ddf8fdccFusVH 2MHChTPI1NDprrpPnqjF9HEwowAGyWhD3UKfzezSq DByyivAuemLyKdv2NFTnG123BXB7eQdrg3slKSM4H WBcAPVeWjKaXy5pmJOeD828CMJpUELYCXFitQg5OZ LtowIrqjNnwYAIv961B484n7chVQSvcgUsbFqZdtu xq1guS128QGZrtFUmftRzVaRrQZRcaHFgaVW6NHKk UN2srgruDdVnXW6akxguFwSwYD9clfl0VaKnXK8sm egnEuTgGTqwCHPzccmmAZGik9CiwzttLU1jE6Gxp4 O1dQ3drULfTQDbtCQvChTvNDAxxa9waKXrIQubd8B gVLQ9gbR5pODsvZYlJFClVC13Flwee5BdBhlxWXA1 MSGzcfRoa4Rqx3svGaNyyqPgB9uzY5QmIZDpHBOfB ZNcPyHszwJil7Pxi2AcaPDluAn7w9jkKAHnKNYckV ifo7sxOLM5SXRxF1W6qIGgk6inPHosAIYehSI7fec lJOogXIFnkcI0kcuaGAbmSFHgzEV6lnqbTXplCHFq CfO6dabgMVskFTJrNHE1ZNtds483IYR4XUuxNxpnF WdlXHBnbmNvbnRccGduZGVjXHBsYWluXHBsYWluXG MxGUJyUzKgvCxnjPfxgC2jYfKcXaAeTUgoSW9oLEX hW6vyhWVaWNUxJCFuI5vxHaPjjU6vhMgnZPetxiMv FEz9VvG9XIFqsf2= CLINICAL HISTORY (test code = 3356) t4ngqIJnEFTyxBHvPpRwRSQmTVSrn9z cZGVmbGFuZ kRbKlQcOmEgUgayfOExYMXmEmOkk3myp456hIJmd3 dyDKSpYjO8kZUnZUIfuMQgO457j2dat7afwwUwiJZ 5NBFcACA9TUyqxaNhrhM0BNufdYNhUoS4KNkmlmWm MEqyvlEqdgMeDep9GDYfK629LHX9rIzip6fsMTO3Q HGnDYWyLvYuZi2ysLOzS349YRRxWSVEYQMxfTz2BP LtjsTahjWmlERXq501B887h0cvFYRlsmWorSqCpgc pm4guW855JOOgcINrsvNlYrIbSTLzfSAseSR3LUSo EC4ldwhuHyOgTH8llsvcLhJpBK9wynh1HjZpIL3lm psaLuEvBSgcXKBwvckyQFBhp4UmsqgtOR8wL1Sba5 X1bN6jnUYdZXFamTYiHqYbYEIjho3imWZtAPglz3D gQWW6rwM3sQTmwHKhGYDpZI18Ncyip6QcUgzfFSK1 OYXkmpCza9Ghs7fgYhNzuhYxM5xwB1SaUHPaRCBfC HPvWcRuzoFlo4Kug2LbnWMrvWn3p5xuABFeMDVjgQ frh4poHBS1AIWsQ4R8yBXph0wuFDbtMDEisAO6jhz eSWjcSBSbdkJ6vxgeXVxkMBQffJK6wucaOPxgOAYr UbY0vyfhLMosSHHrTWA3HAdnc764WAL5NFbtJsyuI WdlXHBnbmNvbnRccGduZGVjXHBsYWluXHBsYWluXG JkOUPvDfNwhVdkfHffiH9wEsRpKoOpQUihPV6bJOW fQ0rdiVApWQBbKJPkW9pyPfGfiF8ouVekRZwqtxLa EGGdGS9lAMQeGFvcy0XmhkodVH2qmfVcCIMzFkZqt ZB1UFWagdLxpKHwXYUtulxlr7SwtAH8V3JdmcShg8 uqPUMeIFTvXUUaRDKwoX4iktpugW7jw489cB4yryO hXST4odTpKDRxTjcpRHB1uFNlFLQmcl4= SPECIMEN SOURCE (test code = 3377) w5ghqEAbZFZjvMItPnKnDTHcJTMwm1ip ZGVmbGFuZ wGxZcLoWuMsHlvbbJDzEIZpXgLgt9bnu902dWSyk1 ouLORcUqE9iXLxGSGgxZRhG654f2oql8pcypDlhKX 6YYOsVVR8ZRcofsHewhI3SKjwhSLbDgH8BEtunrQc DDaqrhJgzrYiJzm2FLUiV330PED1oWdse7ilCZV6H NKuLFAtZqDnJw3dgUFiC516ILUzSCBOHKGvxLt2NR DuuiTagjCmfOLXv193N124x1jcPBZxegCymRlWzdx aa5krV805VOKvaSQcltGvLnGmFLRigWXthNV8AQQy DL5uevvgQlQdDO5qxvxlBrIoXC4lnul1KvAlTC7qg wmoDyKbSEoaUCPtdghwIPNfy1FgehxqJX9bD5Aeg3 Y0qV3xbFOwRCHonIOvBuQgFUMmyr2ngMYaMYmcl7T vJUU4doS4rFLagCPiUOOmCD19Dylxf5SnMrbvBGN8 IMWuiiZbh7Egq9qfUzZugiArR7suT9BkCAOfMZAxM ZIzFpIgxlBoe5Zzt4IgtZWpjIz5o0wuMTBiFUCevP ggo4voWNC9QQLaM6R0yZTcf1yfSKiyNWYtmBL7piq kWTeiCLKutqT8nvjuTKxcHUIaaSW2ulodDVuaBKFl GsN1kkscVPngKHYlNNC8FXyog829WZK6UIgzZqtiP WdlXHBnbmNvbnRccGduZGVjXHBsYWluXHBsYWluXG WiVEIgKsEtpLnvyUnjrF7qRpMcTzJkQLvuQC2wGSK aY0husEGjSKDtKZTsN3ejUeDxvV7yxWhrHQxwytKo OSP4v73kN2avLXMbas9= GROSS DESCRIPTION (test code = 3366) v5telACbHQLfzRBdOqZsJISlXMI aw1ccVXGowVYeD mXdKvQnCeHnGoqyqHJyYTGbJyTwc0tqb373dSJge9 afLFYaEmE6aDAgBDYokIJgP933SZIfGZyli9jxy1M tQAUwgDKgh9E1GZYIvoxodFx4kEfxJ35gl6X2Aigo W4zqDUMcMHlxYSUtMUezpCPiZRP2BHZtUSI2YUvoz yUpamP1HAdreOBqUfV2DZm0l4mevPnjXJUqQQQ6o8 bsIWbojrExGL8hay4mhEp6r3lhshBwTOHhXNIzvSM CHYUcP4VhwQvxTx2nbIs9mPfvHjpgFBM4Bdg6QC6x hb46brw6mGnySHEydmolGnS2CWfcGPZtjhibMYg3S FxtYXJnbDcyMFxtYXJncjcyMFxtYXJndDcyMFxtYX BxPlycSKphFQFeDCJ3BJavx430YMB4JYyys4jbr3z inYCeYhs9GVUvWePyHlchHUbdv6Qfb8mtVJYtjv7x CON9iNKtgTodd4H5rWUrRBHnqMUktjBpQAUkSsH1Z LnxZK1gvl64DHPgPGY9tf7daWVvhGrmbpJssIPdHE xhU0WgIFJyp915LYEhL2CkVDZkd5H7ckJzNmBuBAZ puHR0qyB9QHPyWWy5aGGjkgL0ypEulPHlG8kgjW34 VbLrgPOpP6LycM03VlAccDYdN0UvzR71AjXxvIFcV 6DfrL62WzQljGDrBNJkcUOpUm3qcQDshRHjy7PesB QlVNiuT20op551PUEcmyJgN0sfeZIceknmnUAiufu mBPipwuIbKTLoBMDiBJvkHIMyMJAyZoJrwUrmxI4a JbJiEuKrMZUCBGKxkAWhLCPhxcFjp4SySUzfkdIyO SFocAEiBLonvRwuoTddURHfeDqbvxOhheRbMZ4rCS QtD4Pld1Kdj61dstQiNqKsLQPzPFMvw9ChgROjrNL aaHOfLIEbNa6pQNxoET8wNMxwAZ43HJFhBMNxk1Yx LG82CBVkoA5nlJnyknQrGdXyoB6wSBIvLKqcbJsdO MClMa1hXOSuQQlvkeCvycLruIHhlZEcfPghYD3nSQ lnZQBhyf7wRJHxxlG2TF1kuCcvtzwbv96vm9QzRHD kAIImuQCjdgAscHFvURBkYXZajSNprT4ngqFytqZp lVWnRMWpbT3aogJ6HRYrWHQnyRYoJPZzzizjXMAdO 5JooEokVFH2rDovrYN6z3LzCL62M68lTTX7bMJ3OY Hyn7IuHDqwKR7yqi2tiLPngSjyxUZcg5nsjf1cVp5 sJKusB9BtmKPwcCVsgS7prsVfncWebCWjwqZyMdud NR6jFnQdbhGiHZ29HSDobiVcm0HakSdeumTyVWKrM NO9Hu4sgBFwBBMsggBCHW4KEg8oBGUJG0EoAYuaVP J9 MICROSCOPIC DESCRIPTION (test code = q4wnfGZwPQUghKOjFxJpKLToELY ok8gaVBKnzGClA 3371) gEgYcQgQoAvLjfvyEAgXTEiXnQjc1vjl112zAGoh5 lgRQXoPeW3lIMpJNWehZNbD767j0xkn4qbyiHrlTW 3GPTvOKZ5HKqevnXkckA3PUpggZTeTiR8BJhreiXf HHpwssJpskCtMjn3KXJiK755AVW6sIndu0dkLKB8V NApYFKfRkWcEb9clHXmZ666VKXaOYJBPVVhhLr8BQ GafzUrhiEicQKOs365M810n5itTJBtzyJbjVqCzjw rq3dmP684TKNknLBihtSkXnJcAFWrgGNapTK6VBLp SB2cyyimOaEiIY8qqakmSpJdYE5vzem3CcXnSX7oo ytzGoHpBJtnSYKzdhwfCHNtr4IrqlzuWK6eI1Fsf4 Z2yL5ueAKaXEOiuTBsTqKkGSEcih2gjGBfQFjdv4K fOHE8vfD9bIGzzEGiOVNtRC03Ypcyr4JtPipaBEZ6 WDKsmyZpa6Glj3ycEmRiwnZsJ1ybE1MjDXIcQQGlL AZiWzAjzaDrb5Bry2VmeAPgsHe0x8hcTXEbLHNsmH blf7jsNEN4WLDhI4Z7hWSth3hmHQlwYVRjaYM0cmg pKLvqBUGiwwA9kqrhSTdeMYSkeGO5jqemPSkpULQz BpQ2lorlEYlhIGBnGGC7LQoyr759HZZ3TSqbBtzsU WdlXHBnbmNvbnRccGduZGVjXHBsYWluXHBsYWluXG BpDWSxKiHtiJnreXriqB7sGcHmQpIpOAihZU0wKZK dV2hmkBAbUNMeFDPnH1omTlJdfL3znPxiCGntqtIw UZCARcDDJz6CBBvlSWZ2 SPECIAL STUDIES (test code = 3376) d0fppULpECUlh1asKRSbwBNdOnZzPhGm ZnRuYmpcd [file] 6MofX6sIlxdaRCmkuorMEuntrLdSHdfazdnKKLpGE wnI6dkKgDjESGhqYiyEBrkw1ReFWOgEXXxLaeaacA kHUr3yxTrPKWccqscNBJxiLbbeU5iFrEmXxDaFbnq QA5cTETrZ3iuvXRrRMMmJGCsB4teUcMftK9zcJiwT IgeQqHcUoJmWuCSp484hs2rZUQxeRIvpsRNsYYztZ 5yYQnxHYovUAnimMUmIIezw2ikPOPtw2b2kSClJUD qctZsg2pnTMfmokFgMOCgdDXjyURgWDDyj97tDQzj rSqrmRrjINQim1OenUlay4TyLbZcLTwub5RzN88xm NEbsPXwiGfiAMRvnvXbHWShg11jh7klJYNcCwH1qC SteSV1lLGufMZem6GrnRyrYWQet3xyTHWnad2blbq dpGVoy1PpgQ0pxhelBSktcUMsefDlVZEjo1a9tFLh YPFeYYYuNKkhyMx5LSUmo986we1rxvL7fEUgDLX2Q WlsYWJsZSBhcmUgZXZhbHVhdGVkXHBsYWluXGYxXG ZzMjJcbGFuZzEwMzNcaGljaFxmMVxkYmNoXGYxXGx fD4yyBjUmV7FdVTQdMtPssXEeK1hyiDYpHRHaMDmp XGYxXGZzMjJcbGFuZzEwMzNcaGljaFxmMVxkYmNoX TQrGTfxE0axJiJoX9RwJSHcLlKpNXnjmTZbeaufJV vwzxAhSQflnhsxSIOqVBcdM7vaPsSwYPQyiXnqBPu nx8KbLMBrSMVgUiumbgQaOQl9ymAtSTXoqnqonEZv jxvaMIxamfCcYIlnlogrMWDgQJwnN8tsZbFgMGUqk HweYVapg1TsNCVnUIGcFcxusiErKTussSGgo2tnv5 AoE2xszDeisXH9INZnF0ghwPJgaQI3QYV6wF2mRZj utoTxGRNeg3LvFHMnUBEiIyR2vI9mLNH0QnOZrTeu XHBsYWluXGYxXGZzMjJcbGFuZzEwMzNcaGljaFxmM CtkNtClRWLxOIunX1flAgDeM8NpVRHgSdEvyUjoGA jlOMz8JniotLFsldpuHVjhakBmOCptpzkmPRVoYWb jL5zyYgOiUWRpaJlyROzzp6OuSDLxHGZkUptompHe DTAvETDjtVBndTCSUR39MNZoYDKbmIoxmK6auBEYA WMrryG1j4B1NZwwOKWkDOf3DIisgePfPIGiwI3bDO JbRY2wYEo1ybCrSCMex9MyTS9rDCRpaCZaTLE6UQS gc3OxQ5Arg3EhATClPZZzwu6feqZdYcNBtJOoPAGa td95EWJpFP0gL8vzAMTyOPSpfkIaxIIgr0JrNLPwu PU3pBHcYE9IPpOIh75gIDUaCCPEeqFgOQAoyNfjhG E5kuX3rC9gVrCJmNAtIvYEHVbkotPzQKAoma7ugpD fDWVsFQMfj4AiyRCllEKvntGbL8Oqa5FqXKQgyg30 ZTckhVGric33NI8gR1Pfa0ObwY6lHDluLDEzu8Xoc FEdxRLqNNBru5CfN6ciqpnjNKcgaYIslA9rXOZsAS f4HSRuh2ZyNXIkn2PtCrPkgbCkQFPhEOLrCXKieA4 6EAA7cRearLpotgMwMB3wTDCcazWdVBOfLMJbwS4e OTfabzFoIMWefyI5a9Y3RTomCVOhszApHamvBRA0a oUsiuG0hZSqD6iphqzzWFfuNYYqd5WdzC4dbWCJwY Pvh9NlpXDptOJFyITbDY4sabIdHF2hJFO0QCzyHJR PAPEgBPyzFYRqDTB8LHhgAypwBJC6kzQdYCFfi5Gu RSptL5rhY23acQdvkFy2qJHdbWrupTHdpWRjQLBdd gB6o2L6NZEnn1OclqdeUWIoCGwrJGFiUTRzLfVcfU BwEhMlJtAgeHuycZouVamrWkOfNSYjUScfJ4jjQoI iSpYbVnewIQJ5tD== [facility] [id number] 18:22:00Surgical Pathology Report Case: [id number] Authorizing Provider: Nanci Delaney Collected: 05/20/2020 05:33 PM MD Ricardo [facility]ing[facility] Received: 05/21/2020 08:58 AM SERVICES Pathologist: Jennifer León MD Specimen: Stomach, partial gastrectomy his addendum is issued to report the result of immunohistochemical study for Helicobacter pylori:- POSITIVE The interpretation of this case included the use of immunohistochemistry or special stains. HELICOBACTER PYLORIImmunohistochemistry technical testing was performed at [facility], Pathology Laboratory where it was developed and its performance characteristics were determined. It has not been cleared or approved by the U.S. Food and Drug Administration. The FDA has determined that such clearance or approval is not necessary. The test is used for clinical purposes. It should not be regarded as investigational or for research. This laboratory is certified under the Clinical Laboratory Improvement Amendments of 1988 (CLIA-88) as qualified to perform high complexity clinical laboratory testing. CPTCODE: [id number] note that immunohistochemical study was done instead of Warthin-Starry Addendum electronically signed by Jennifer León MD on 05/27/2020 at 6:22 PMSTOMACH, PARTIAL GASTRECTOMY: - CHRONIC GASTRITIS WITH REACTIVE LYMPHOID FOLLICLES - NO INTESTINAL METAPLASIA, DYSPLASIA OR MALIGNANCY SEEN - WARTHIN-STARRY STAIN FOR HELICOBACTER PYLORI IS BEING DONE; ADDENDUM REPORT WILL FOLLOW Signing Pathologist Direct Phone Line: [phone] signed by Jennifer León MD on 05/22/2020 at 5:05 [id number] diagnosis: Morbid obesity, prediabetes, obstructive sleep apnea, urinary incontinence, unspecified typeStomach Received in formalin labeled with the patient's name, accession number and "stomach" is a 22.0 x 4.0 x 1.7 cm unoriented portion of stomach witha 22.0 cm linear staple line. The serosa is hogan-pink, smooth and hyperemic. The specimen is opened to reveal a hogan-pink, focally erythematous mucosa that displays normal rugal folds. No discrete lesions are identified. Scooper sections are submitted in A1-A2. PA/pl PERFORMEDThe interpretation of this case included the use of immunohistochemistry or special stains.Control Slides Examined: In-house known positive controls were evaluated along with the test tissue. These control slides run alongside of the patients sample show appropriate staining. Internal positive and negative controls when available are evaluated Immunohistochemistry technical testing was performed at [facility], Pathology Laboratory where it was developed and its performance characteristics were de termined. It has not been cleared or approved by the U.S. Food and Drug Administration. The FDA has determined that such clearance or approval is not necessary. The test is used for clinical purposes. It should not be regarded as investigational or for research. This laboratory is certified under the Clinical Laboratory Improvement Amendments of 1988 (CLIA-88) as qualified to perform high complexity clinical laboratory testing.POC-Glucose [id number] 12:54:00 Test Item Value Reference Range Interpretation Comments POC-Glucose Meter (test 106 mg/dL 70-110 : TE STED AT [facility] code = 1538) [address] [facility], 770 30: Hand Cloth Cutter/Techni aria ID = [id number] for Aaliyah Queen r Lab Interpretation (test Normal code = 38280-6) [facility] [id number] 12:54:00 Test Item Value Reference Range Interpretation Comments POC-GLUCOSE METER 106 mg/dL 70-110 : TESTED A T [facility] 6720 (BEAKER) (test code = [facility], 1538) [address]: Hand Cloth Cutter/Techni aria ID = [id number] for Addie Mcadams POCT-GLUCOSE [id number] 08:54:00 Test Item Value Reference Range Interpretation Comments POC-GLUCOSE METER 111 mg/dL 70-110 H : TESTED A T [facility] 6720 (BEAKER) (test code = [place], 1538) [address]: Hand Cloth Cutter/Techni aria ID = [id number] for Addie Mcadams Basic metabolic [id number] 06:56:00 Test Item Value Reference Range Interpretation Comments Sodium (test code = 139 meq/L 369-600 3395-2) Potassium (test code = 4.4 meq/L 3.5-5.1 2823-3) Chloride (test code = 109 meq/L 98-107 H 2075-0) CO2 (test code = 22 meq/L 22-29 2028-9) BUN (test code = 7 mg/dL 7-21 3094-0) Creatinine (test code 0.67 mg/dL 0.57-1.25 = 2160-0) Glucose (test code = 114 mg/dL 70-105 H 2345-7) Calcium (test code = 8.4 mg/dL 8.4-10.2 65677-1) EGFR (test code = 106 mL/min/1.73 [place] [address]-0) NOT ACCURATE CREATININE CLEARANCE IN PREDICTING GLOMERULAR FILTRATION RATE . ESTIMATED GFR I S NOT APPLICABLE FOR DIALYSIS PATIENTS. MEGAN (test code = MEGAN) Hand Cloth Cutter ID - EDASI Lab Interpretation Abnormal (test code = 19638-5) [facility] MET[facility]OLIC [id number] 06:56:00 Test Item Value Reference Range Interpretation Comments SODIUM (BEAKER) 139 meq/L 136-145 (test code = 381) POTASSIUM (BEAKER) 4.4 meq/L 3.5-5.1 (test code = 379) CHLORIDE (BEAKER) 109 meq/L 98-107 H (test code = 382) CO2 (BEAKER) (test 22 meq/L 22-29 code = 355) BLOOD UREA NITROGEN 7 mg/dL 7-21 (BEAKER) (test code = 354) CREATININE (BEAKER) 0.67 mg/dL 0.57-1.25 (test code = 358) GLUCOSE RANDOM 114 mg/dL 70-105 H (BEAKER) (test code = 652) CALCIUM (BEAKER) 8.4 mg/dL 8.4-10.2 (test code = 697) EGFR (BEAKER) (test 106 mL/min/1.73 ESTIM ATED GFR IS code = 1092) sq m NOT ACCURATE CREATININE CLEARANCE IN PREDICTING GLOMERULAR FILTRATION RATE . ESTIMATED GFR I S NOT APPLICABLE FOR DIALYSIS PATIEN TS. Hand Cloth Cutter ID - [id number] 06:54:00 Test Item Value Reference Range Interpretation Comments Magnesium (test code = 1.9 mg/dL 1.6-2.6 71555-5) MEGAN (test code = MEGAN) Hand Cloth Cutter ID - EDASI Lab Interpretation (test Normal code = 61469-6) [facility] 06:54:00 Test Item Value Reference Range Interpretation Comments Phosphorus (test code = 2.9 mg/dL 2.3-4.7 2777-1) MEGAN (test code = MEGAN) Hand Cloth Cutter ID - EDASI Lab Interpretation (test Normal code = 82124-6) [facility]2020-[facility]-13 06:54:00 Test Item Value Reference Range Interpretation Comments PHOSPHORUS (BEAKER) (test code = 2.9 mg/dL 2.3-4.7 604) Hand Cloth Cutter ID - [id number] 06:54:00 Test Item Value Reference Range Interpretation Comments MAGNESIUM (BEAKER) (test code = 1.9 mg/dL 1.6-2.6 627) Hand Cloth Cutter ID - EDASICBC with platelet count + automated [id number] 06:47:00 Test Item Value Reference Range Interpretation Comments WBC (test code = 6690-2) 9.6 See_Comment [A utomated message] The system I-MD generated this result transmitted ref erence range: 3.5 - 10 .5 K/L. The refe rence range was not u sed to interpret this result as normal/abnor mal. RBC (test code = 789-8) 4.17 See_Comment [Au tomated message] The system I-MD generated this result transmitted ref erence range: 3.93 - 5 .22 M/L. The refe rence range was not u sed to interpret this result as normal/abnor mal. MCHC (test code = 786-4) 31.2 See_Comment L [A utomated message] The system I-MD generated this result transmitted ref erence range: 32.2 - 3 5.5 GM/DL. The refe rence range was not u sed to interpret this result as normal/abnor mal. Hematocrit (test code = 37.8 % 34.1-44.9 4544-3) MCV (test code = 787-2) 90.6 fL 79.4-94.8 MCH (test code = 785-6) 28.3 pg 25.6-32.2 RDW (test code = 788-0) 13.3 % 11.7-14.4 Platelets (test code = 316 See_Comment [Aut omated message] 777-3) The system I-MD generated this result transmitted ref erence range: 150 - 45 0 K/CU MM. The referen ce range was not u sed to interpret this result as normal/abnor mal. MPV (test code = 11.4 fL 9.4-12.3 72152-9) nRBC (test code = 413) 0 See_Comment [Aut omated message] The system I-MD generated this result transmitted ref erence range: 0 - 0 /1 00 WBC. The refere nce range was not u sed to interpret this result as normal/abnor mal. % Neutros (test code = 82 % 429) % Lymphs (test code = 13 % 430) % Monos (test code = 5 % 431) % Eos (test code = 432) 0 % % Baso (test code = 437) 0 % # Neutros (test code = 7.89 See_Comment H [Aut omated message] 670) The system I-MD generated this result transmitted ref erence range: 1.56 - 6 .13 K/L. The refe rence range was not u sed to interpret this result as normal/abnor mal. # Lymphs (test code = 1.24 See_Comment [Auto mated message] 414) The system I-MD generated this result transmitted ref erence range: 1.18 - 3 .74 K/L. The refe rence range was not u sed to interpret this result as normal/abnor mal. # Monos (test code = 0.46 See_Comment H [Autom ated message] 415) The system I-MD generated this result transmitted ref erence range: 0.24 - 0 .36 K/L. The refe rence range was not u sed to interpret this result as normal/abnor mal. # Eos (test code = 416) 0.00 See_Comment L [Au tomated message] The system I-MD generated this result transmitted ref erence range: 0.04 - 0 .36 K/L. The refe rence range was not u sed to interpret this result as normal/abnor mal. # Baso (test code = 417) 0.01 See_Comment [A utomated message] The system I-MD generated this result transmitted ref erence range: 0.01 - 0 .08 K/L. The refe rence range was not u sed to interpret this result as normal/abnor mal. Immature 0 % 0-1 Granulocytes-Relative (test code = 2801) Lab Interpretation (test Abnormal code = 75077-2) [facility] W/PLT COUNT & AUTO [id number] 06:47:00 Test Item Value Reference Range Interpretation Comments WHITE BLOOD CELL COUNT (BEAKER) 9.6 K/ L 3.5-10.5 (test code = 775) RED BLOOD CELL COUNT (BEAKER) 4.17 M/ L 3.93-5.22 (test code = 761) HEMOGLOBIN (BEAKER) (test code = 11.8 GM/DL 11.2-15.7 410) HEMATOCRIT (BEAKER) (test code = 37.8 % 34.1-44.9 411) MEAN CORPUSCULAR VOLUME (BEAKER) 90.6 fL 79.4-94.8 (test code = 753) MEAN CORPUSCULAR HEMOGLOBIN 28.3 pg 25.6-32.2 (BEAKER) (test code = 751) MEAN CORPUSCULAR HEMOGLOBIN CONC 31.2 GM/DL 32.2-35.5 L (BEAKER) (test code = 752) RED CELL DISTRIBUTION WIDTH 13.3 % 11.7-14.4 (BEAKER) (test code = 412) PLATELET COUNT (BEAKER) (test 316 K/CU MM 150-450 code = 756) MEAN PLATELET VOLUME (BEAKER) 11.4 fL 9.4-12.3 (test code = 754) NUCLEATED RED BLOOD CELLS 0 /100 WBC 0-0 (BEAKER) (test code = 413) NEUTROPHILS RELATIVE PERCENT 82 % (BEAKER) (test code = 429) LYMPHOCYTES RELATIVE PERCENT 13 % (BEAKER) (test code = 430) MONOCYTES RELATIVE PERCENT 5 % (BEAKER) (test code = 431) EOSINOPHILS RELATIVE PERCENT 0 % (BEAKER) (test code = 432) BASOPHILS RELATIVE PERCENT 0 % (BEAKER) (test code = 437) NEUTROPHILS ABSOLUTE COUNT 7.89 K/ L 1.56-6.13 H (BEAKER) (test code = 670) LYMPHOCYTES ABSOLUTE COUNT 1.24 K/ L 1.18-3.74 (BEAKER) (test code = 414) MONOCYTES ABSOLUTE COUNT (BEAKER) 0.46 K/ L 0.24-0.36 H (test code = 415) EOSINOPHILS ABSOLUTE COUNT 0.00 K/ L 0.04-0.36 L (BEAKER) (test code = 416) BASOPHILS ABSOLUTE COUNT (BEAKER) 0.01 K/ L 0.01-0.08 (test code = 417) IMMATURE GRANULOCYTES-RELATIVE 0 % 0-1 PERCENT (BEAKER) (test code = 2801) POCT-GLUCOSE [id number] 06:00:00 Test Item Value Reference Range Interpretation Comments POC-GLUCOSE METER 120 mg/dL 70-110 H : TESTED A T [facility] 6720 (BEAKER) (test code = [facility] [employer] [facility], 1538) [address]: Hand Cloth Cutter/Techni aria ID = [id number] for Lori Olvera POCT-GLUCOSE [id number] 18:38:00 Test Item Value Reference Range Interpretation Comments POC-GLUCOSE METER 184 mg/dL 70-110 H : TESTED A T [facility] 6720 (BEAKER) (test code = [facility] [employer] [facility], 153) [address]: Hand Cloth Cutter/Techni aria ID = [id number] for VIJAY [facility] METABOLIC [id number] 10:34:00 Test Item Value Reference Range Interpretation Comments SODIUM (BEAKER) 138 meq/L 136-145 (test code = 381) POTASSIUM (BEAKER) 4.6 meq/L 3.5-5.1 Specimen slightly (test code = 379) hemolyzed CHLORIDE (BEAKER) 103 meq/L 98-107 (test code = 382) CO2 (BEAKER) (test 22 meq/L 22-29 code = 355) BLOOD UREA NITROGEN 11 mg/dL 7-21 (BEAKER) (test code = 354) CREATININE (BEAKER) 0.64 mg/dL 0.57-1.25 Specimen slightly (test code = 358) hemolyzed GLUCOSE RANDOM 74 mg/dL 70-105 (BEAKER) (test code = 652) CALCIUM (BEAKER) 10.0 mg/dL 8.4-10.2 (test code = 697) EGFR (BEAKER) (test 111 mL/min/1.73 ESTIM ATED GFR IS code = 1092) sq m NOT ACCURATE CREATININE CLEARANCE IN PREDICTING GLOMERULAR FILTRATION RATE . ESTIMATED GFR I S NOT APPLICABLE FOR DIALYSIS PATIEN TS. Hand Cloth Cutter ID - SHANE [id number] 10:18:00 Test Item Value Reference Range Interpretation Comments Hemoglobin (test code 14.1 See_Comment [Auto mated = 786-4) message] The system which generated this result transmit sunil reference range : 11.2 - 15.7 GM/ DL. The reference range was not u sed to interpret th is result as normal/abnormal . MEGAN (test code = MEGAN) Hand Cloth Cutter ID - [id number] Lab Interpretation Normal (test code = 23027-6) [facility] 10:18:00 Test Item Value Reference Range Interpretation Comments HEMOGLOBIN (BEAKER) (test code = 14.1 GM/DL 11.2-15.7 410) Hand Cloth Cutter ID - [id number] , [id number] 09:48:00 Test Item Value Reference Range Interpretation Comments Test Urine, POC (test Negative code = 1887542) Control line present?, POC (test Yes code = 8636339) Background clear?, POC (test code Yes = 5454849) UPT Cassette Lot #, POC (test code 0445700 = 7903171) UPT Cassette Expiration Date, POC (test code = 1534722) [facility] [id number] 09:46:00 Test Item Value Reference Range Interpretation Comments POC-GLUCOSE METER 88 mg/dL 70-110 : TESTED A T [place] [address] ([facility]) (test code = [facility], 7670) [address]: Hand Cloth Cutter/Techni aria ID = [id number] for TORI THOMPSON TISSUE [id number] 17:57:00Surgical Pathology Report Case: [id number] Authorizing Provider: Alcon Ramires Collected: 04/23/2019 1316 Ordering Location: [facility] Endoscopy Received: 04/23/2019 1516 Services Pathologist: Barbie Khan MD Specimen: Biopsy, Gastric, RANDOM/BX/FORCEP STOMACH, RANDOM BIOPSY - CHRONIC ACTIVE GASTRITIS, MODERATE- NUMEROUS HELICOBACTER LIKE ORGANISMS IDENTIFIED ON WARTHIN STARRY STAIN Signing Pathologist Direct Phone Line: [phone] signed by Barbie Khan MD on 04/25/2019 at 5:57 [id number], [id number] obesity, preoperative clearanceGastric biopsy, randomPart A. Received in formalin labeled as "gastric biopsy" are six fragments of white- hogan soft tissue ranging from 0.1 to 0.2 cm. The specimen is submitted in toto in one cassette. [place]/ewPerformed.The interpretation of this case included the use of immunohistochemistry or special stains.Control Slides Examined: In-house known positive controls were evaluated along with the test tissue. These control slides run alongside of the patients sample show appropriate staining. Internal positive and negative controls when available are evaluated Immunohistochemistry technical testing was performed at [facility], Pathology Laboratory where it was developed and its performance characteristics were determined. It has not been cleared or approved by the U.S. Food and Drug Administration. The FDA has determined that such clearance or approval is not necessary. The test is used for clinical purposes. It should not be regarded as investigational or for research. This laboratory iscertified under the Clinical Laboratory Improvement Amendments of 1988 (CLIA-88) as qualified to perform high complexity clinical laboratory testing.POCT-GLUCOSE [id number] 12:12:00 Test Item Value Reference Range Interpretation Comments POC-GLUCOSE METER 104 mg/dL 70-110 TESTED AT [place] [address] ([facility]) (test code = [facility] 4214) [address]
[2021-04-11 22:53] LABS: Urine Blood Negative (Negative); Urine Glucose Negative (Negative); Urine Protein 3+ (Negative); Urine Specific Gravity >=1.030 (1.005-1.030); Urine pH 5.5 (5.0-7.0)
[2021-04-11 23:12] LABS: Absolute Lymphocytes (CBC) 3.6 K/uL (0.7-4.9); Basophils % 0.4 % (0-1.3); Hematocrit 39.6 % (36.0-45.0); Lymphocytes % 27.9 % (15.3-44.8); MPV 9.6 fL (7.6-11.3); RBC Red Blood Cell Count 4.38 M/uL (3.86-4.86)
[2021-04-11 23:31] LABS: ALT/SGPT 32 U/L (12-78); AST/SGOT 32 U/L (15-37); Albumin 3.3 g/dL (3.4-5.0); Alkaline Phosphatase 108 U/L (45-117); BUN Blood Urea Nitrogen 13 mg/dL (7-18); Bicarbonate 27 mmol/L (21-32); Bilirubin Direct < 0.1 mg/dL (0-0.2); Bilirubin Total 0.2 mg/dL (0.2-1.0); Glucose Level 92 mg/dL (74-106); Lipase 202 U/L (73-393); Potassium 3.8 mmol/L (3.5-5.1); Protein, Total 8.3 g/dL (6.4-8.2); Sodium Level 142 mmol/L (136-145)
--- NOTE | 2021-04-12 02:56 | EDPHYS ---
Physician Documentation [facility] Name: Cherise Seay Age: 30 yrs Sex: Female : 1990 Arrival Date: 04/11/2021 Time: 22:35 Bed 16 Private MD: ED Physician Adalberto Simms HPI: 04/12 01:40 This 30 yrs old Female presents to ER via Ambulatory with complaints of pkl Vomiting, Abdominal Pain. 01:40 The patient presents with abdominal pain in the upper abdomen. Onset: The pkl symptoms/episode began/occurred just prior to arrival. The symptoms do not radiate. Associated signs and symptoms: Pertinent positives: nausea and vomiting. Patient said her abdominal improved after the vomiting. 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 - Social history:: Smoking status: Patient denies any tobacco usage or history of. ROS: 04/12 01:40 Eyes: Negative for injury, pain, redness, and discharge, ENT: Negative for injury, pkl pain, and discharge, Neck: Negative for injury, pain, and swelling, Cardiovascular: Negative for chest pain, palpitations, and edema, Respiratory: Negative for shortness of breath, cough, wheezing, and pleuritic chest pain. Abdomen/GI: Positive for abdominal pain, nausea and vomiting, of the right upper quadrant and left upper quadrant. Back: Negative for acute changes. : Negative for urinary symptoms. MS/extremity: Negative for acute changes. Skin: Negative for rash. Neuro: Negative for altered mental status. Exam: 01:40 Head/Face: Normocephalic, atraumatic. Eyes: Pupils equal round and reactive to light, pkl extra-ocular motions intact. Lids and lashes normal. Conjunctiva and sclera are non-icteric and not injected. Cornea within normal limits. Periorbital areas with no swelling, redness, or edema. ENT: Nares patent. No nasal discharge, no septal abnormalities noted. Tympanic membranes are normal and external auditory canals are clear. Oropharynx with no redness, swelling, or masses, exudates, or evidence of obstruction, uvula midline. Mucous membranes moist. Neck: Trachea midline, no thyromegaly or masses palpated, and no cervical lymphadenopathy. Supple, full range of motion without nuchal rigidity, or vertebral point tenderness. No Meningismus. Chest/axilla: Normal chest wall appearance and motion. Nontender with no deformity. No lesions are appreciated. Cardiovascular: Regular rate and rhythm with a normal S1 and S2. No gallops, murmurs, or rubs. Normal PMI, no JVD. No pulse deficits. Respiratory: Lungs have equal breath sounds bilaterally, clear to auscultation and percussion. No rales, rhonchi or wheezes noted. No increased work of breathing, no retractions or nasal flaring. 01:40 Abdomen/GI: Bowel sounds: normal, Palpation: soft, mild abdominal tenderness, in the epigastric area and right upper quadrant. 01:40 Back: Exam negative for acute changes. 01:40 : Exam negative for acute changes. 01:40 Musculoskeletal/extremity: Exam is negative for acute changes. 01:40 Skin: Exam negative for rash. 01:40 Neuro: Orientation: is normal, Mentation: is normal, Cranial nerves: grossly normal, Motor: is normal. Vital Signs: 04/11 22:44 BP 140 / 85; Pulse 105; Resp 18; Temp 97.0; Pulse Ox 99% ; Weight 87.09 kg; Height 4 ea ft. 9 in. (144.78 cm); 04/12 01:04 BP 127 / 80; Pulse 85; Resp 18; Pulse Ox 98% on R/A; ea 03:00 BP 137 / 60; Pulse 80; Resp 18; Temp 97.8; Pulse Ox 98% on R/A; ea 04/11 22:44 Body Mass Index 41.55 (87.09 kg, 144.78 cm) ea MDM: 04/11 22:37 Patient medically screened. pkl 04/12 02:52 Data reviewed: vital signs, nurses notes, lab test result(s), radiologic studies, CT pkl scan. ED course: Patient feeling better, Discussed lab and CT Scan result with patient. Advised to follow up with PCP in 2 to 3 days. Patient understood instructions. 04/11 22:38 Order name: Basic Metabolic Panel; Complete Time: 01:00 ea 04/11 22:38 Order name: CBC with Diff; Complete Time: 23:27 ea 04/11 22:38 Order name: Hepatic Function; Complete Time: 01:00 ea 04/11 22:38 Order name: Lipase; Complete Time: 01:00 ea 04/11 22:53 Order name: Urine Dipstick-Ancillary; Complete Time: 23:27 EDMO 04/12 01:07 Order name: CT Abd/Pelvis - IV Contrast Only ea 04/11 22:38 Order name: IV Saline Lock; Complete Time: 22:49 ea 04/11 22:38 Order name: Labs collected and sent; Complete Time: 22:49 ea 04/11 22:38 Order name: Urine Dipstick-Ancillary (obtain specimen); Complete Time: 22:54 ea 04/11 22:38 Order name: Urine Test (obtain specimen); Complete Time: 22:54 ea Administered Medications: No medications were administered Disposition Summary: 04/12/21 02:55 Discharge Ordered Location: Home pkl Problem: new pkl Symptoms: have improved pkl Condition: Stable pkl Diagnosis - Abdominal pain pkl Followup: pkl - With: Private Physician - When: 2 - 3 days - Reason: Re-evaluation by your physician Forms: - Medication Reconciliation Form pkl - Thank You Letter pkl - Antibiotic Education pkl - Prescription Opioid Use pkl Signatures: Dispatcher [employer] Adalberto Rivera MD MD pkl Pepper Hartman, RN RN elizabeth
--- NOTE | 2021-04-12 02:56 | ER ---
Nurse's Notes [facility] Name: Cherise Seay Age: 30 yrs Sex: Female : 1990 Arrival Date: 04/11/2021 Time: 22:35 Bed 16 Private MD: Diagnosis: Abdominal pain Presentation: 04/11 22:44 Chief complaint: Patient states: Reports vomiting. epigastric pain that started about ea an hour ago. Coronavirus screen: At this time, the client does not indicate any symptoms associated with coronavirus-19. Ebola Screen: No symptoms or risks identified at this time. Initial Sepsis Screen: Does the patient meet any 2 criteria? No. Patient's initial sepsis screen is negative. Does the patient have a suspected source of infection? No. Patient's initial sepsis screen is negative. Risk Assessment: Do you want to hurt yourself or someone else? Patient reports no desire to harm self or others. Onset of symptoms was April 11, 2021. 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 - Social history:: Smoking status: Patient denies any tobacco usage or history of. Screenin:44 Abuse screen: Denies threats or abuse. Nutritional screening: No deficits noted. ak2 Tuberculosis screening: No symptoms or risk factors identified. Fall Risk None identified. Assessment: 22:47 General: Appears in no apparent distress. Behavior is calm, cooperative, appropriate ea for age. Pain: Complains of pain in epigastric area. Neuro: Level of Consciousness is awake, alert, obeys commands, Oriented to person, place, time. Cardiovascular: Patient's skin is warm and dry. Respiratory: Airway is patent Respiratory effort is even, unlabored, Respiratory pattern is regular, symmetrical. GI: Abdomen is non-distended, Reports upper abdominal pain, nausea, vomiting. Derm: Skin is pink, warm \T\ dry. 23:10 General: urine preg negative. ak2 04/12 00:35 Reassessment: Patient and/or family updated on plan of care and expected duration. Pain ea level reassessed. Patient is alert, oriented x 3, equal unlabored respirations, skin warm/dry/pink. 01:52 Reassessment: Patient and/or family updated on plan of care and expected duration. Pain ea level reassessed. Patient is alert, oriented x 3, equal unlabored respirations, skin warm/dry/pink. Awaiting on CT results. 02:35 Reassessment: Patient and/or family updated on plan of care and expected duration. Pain ea level reassessed. Patient is alert, oriented x 3, equal unlabored respirations, skin warm/dry/pink. Awaiting on CT results. 03:02 Reassessment: Patient and/or family updated on plan of care and expected duration. Pain ea level reassessed. Patient is alert, oriented x 3, equal unlabored respirations, skin warm/dry/pink. Discharge instruction given to patient verbalized the understanding of instruction. Pt left ED ambulatory tolerating well. Vital Signs: 04/11 22:44 BP 140 / 85; Pulse 105; Resp 18; Temp 97.0; Pulse Ox 99% ; Weight 87.09 kg; Height 4 ea ft. 9 in. (144.78 cm); 04/12 01:04 BP 127 / 80; Pulse 85; Resp 18; Pulse Ox 98% on R/A; ea 03:00 BP 137 / 60; Pulse 80; Resp 18; Temp 97.8; Pulse Ox 98% on R/A; ea 04/11 22:44 Body Mass Index 41.55 (87.09 kg, 144.78 cm) ea ED Course: 04/11 22:35 Patient arrived in ED. bp1 22:37 Adalberto Simms MD is Attending Physician. pkl 22:44 Shai Sena is Primary Nurse. ak2 22:44 Pepper Hartman, PATRICIA is Primary Nurse. ea 22:46 Triage completed. ea 22:46 Arm band placed on right wrist. ea 22:47 Patient has correct armband on for positive identification. Bed in low position. Call ea light in reach. 04/12 01:56 CT Abd/Pelvis - IV Contrast Only In Process Unspecified. EDMS 03:03 No provider procedures requiring assistance completed. IV discontinued, intact, ea bleeding controlled, No redness/swelling at site. Pressure dressing applied. Administered Medications: No medications were administered Outcome: 02:55 Discharge ordered by . rachel 03:03 Discharged to home ambulatory, with family. elizabeth 03:03 Condition: stable 03:03 Discharge instructions given to patient, Instructed on discharge instructions, follow up and referral plans. Demonstrated understanding of instructions, follow-up care. 03:04 Patient left the ED. elizabeth Signatures: Dispatcher [employer] EDMS Adalberto Simms MD MD pkl Antunez, Elena RN RN Lori Chaparro Anthony ak2
[2021-04-12 03:19] VITALS: O2SAT 98
[2021-04-12 03:20] VITALS: BP 137/60; TEMP 97.8
--- NOTE | 2021-04-12 11:54 | RAD REPORT ---
EXAM DESCRIPTION: CT - Abdomen Pelvis W Contrast - 04/12/2021 2:42 am CLINICAL HISTORY: The patient is 30 years old and is Female; ABD PAIN TECHNIQUE: Axial computed tomography images of the abdomen and pelvis with intravenous contrast. S agittal and coronal reformatted images were created and reviewed. This CT exam was performed using one or more of the following dose reduction techniques: automated exposure control, adjustment of t he mA and/or kV according to patient size, and/or use of iterative reconstruction technique. COMPARISON: No relevant prior studies available. FINDINGS: LUNG BASES: Unremarkable. No mass. No consolidation. ABDOMEN: LIVER: Unremarkable. No mass. GALLBLADDER AND BILE DUCTS: Gallbladder is distended. No calcified gallstones or ductal dilata tion is seen. PANCREAS: No ductal dilation. No mass. SPLEEN: Unremarkable. ADRENALS: Unremarkable. No mass. KIDNEYS AND URETERS: Unremarkable. The kidneys enhance symmetrically. No obstructing renal or ur eteral calculus is seen. No hydronephrosis or hydroureter. No perinephric fluid or stranding. STOMACH AND BOWEL: Postsurgical change of the stomach is noted. The small bowel is normal in nicole iber. Stool is present throughout colon. There is no mucosal thickening or evidence of bowel obstruct ion. PELVIS: APPENDIX: The appendix is normal in caliber without surrounding inflammation. BLADDER: The bladder is not well distended. REPRODUCTIVE: Unremarkable as visualized. ABDOMEN and PELVIS: INTRAPERITONEAL SPACE: Unremarkable. No free air. No significant fluid collection. BONES/JOINTS: No acute fracture. SOFT TISSUES: The soft tissues are normal. VASCULATURE: Unremarkable. No abdominal aortic aneurysm. LYMPH NODES: There is mild haziness of the mesenteric fat in the mid abdomen, with several subce ntimeter mesenteric lymph nodes noted in this region. IMPRESSION: Mild haziness of the mesenteric fat in the mid abdomen, which is nonspecific but can be seen with mesenteric panniculitis. Electronically signed by: Lacie Marcus MD 04/12/2021 2:36 AM CDT Due to temporary technical issues with the PACS/Fluency reporting system, reports are being signed by the in house radiologist without review as a courtesy to ensure prompt reporting. The interpreting r adiologist is fully responsible for the content of the report.
== END 2021-04-12 03:04 | disposition home or self-care (01) ==
LOC: ER 22:32
DX: R10.10 Upper abdominal pain, unspecified (principal); R11.2 Nausea with vomiting, unspecified; E11.9 Type 2 diabetes mellitus without complications
CPT/HCPCS: 85025; 80048; 36415; 80076; 81003; 83690; 74177; 99283; Q9967

== ENCOUNTER 2021-05-11 18:06 | Emergency (ER) | payer OTHER ==
--- OUTSIDE RECORDS SUMMARY | 2021-05-11 18:10 | XMS REPORT | Continuity of Care Document ---
:1990 Author Organization [facility] t Address [address] [place] [address] Care Team Providers Name Role Phone Angela DELANEY Attending Clinician Unavailable Angela Delaney MD Attending Clinician Linh HERNANDEZ Attending Clinician Ricci LARIOS, Mayte Attending Clinician RICARDO DELANEY Attending Clinician Unavailable Ricardo Delaney MD Attending Clinician [phone] Stone GUADALUPE Attending Clinician Christina Desir NP Attending Clinician Abril Diaz, Chelo Attending Clinician JACK RAMIRES Attending Clinician Unavailable RICARDO DELANEY Admitting Clinician Unavailable JACK RAMIRES Admitting Clinician Unavailable Payers Payer Name Policy Type Policy Number Effective Date Expiration Source Date [employer] [id number] 2018 2020 00:00:00 00:00:00 [facility]-MEDICAID - [id number] 2018 MEDICAID 00:00:00 [employer] [id number] [facility] [id number] [facility] MEDICAIDMEDICAID 00:00:00 [facility] [id number]/28 Med ical 19-Present Center Problems Condition Condition Condition Status Onset Resolution Last Treating Co mments Source Name Details Category Date Date Treatment Clinician Date Morbid Morbid Disease Active [facility] obesity obesity 8-12 [facility] - 00:00: Medical 00 Center Allergies, Adverse Reactions, Alerts This patient has no known allergies or adverse reactions. Social History Social Habit Start Date Stop Date Quantity Comments Source History [facility] - Alcohol Std Drinks Medica l Center History [facility] Alcohol Binge Medical Dev ter Sex Assigned At [facility] Tobacco use and 2020-05-22 2020-05-22 Never used [facility]s - exposure 00:00:00 00:00:[address] [facility] Alcohol intake 2020-05-22 2020-05-22 Current [facility] es - 00:00:00 00:00:00 non-drinker of Medical Ce nter alcohol (finding) History [facility] 2019-04-22 2019-04-22 1 [facility] - Alcohol Frequency 00:00:00 00:00:[address] [facility] Smoking Status Start Date Stop Date Source Never smoker [facility] M edical [place] Medications Ordered Filled Start Stop Current Ordering Indication Dosage Frequency Signature Comments Components Source Medication Medication Date Date Medication? Clinician (SIG) Name Name norgestimat Yes 1{tbl} QD Take [address] e-ethinyl 8-13 tablet by [facility] - estradiol 15:09: mouth Medical (FEMYNOR) 20 daily. Center 0.25-35 mg-mcg per tablet metFORMIN 2019- No 1000mg Take 1,[address] [facility] (GLUCOPHAGE 8-13 08-13 mg by [facility] - ) 1000 MG 09:24: 00:00 mouth 2 Medi nicole tablet 40 :00 (two) Center times daily with breakfast and dinner. dapaglifloz 2020- No QD Take by [facility] in-metformi 8- 08-13 mouth [facility] - n (XIGDUO 09:24: 00:00 daily. Medic al XR) 5-1,000 40 :00 Center mg per ER tablet famotidine No 20mg QD Take [address] [facility] (PEPCID) 20 05-21 11- tablet (20 [facility] - MG tablet 00:00: 23:59 mg total) Me dical 00 :00 by mouth Center daily for 90 days. acetaminoph No 1000mg Take [address] en 05-21- tablets [facility] - (TYLENOL) 00:00: 23:59 (1,000 mg Me dical 500 MG 00 :00 total) by Center tablet mouth every 6 (six) hours for 10 days. traMADoL No 50mg Take [address] [facility] [address] (ULTRAM) 50 05-21 tablet (50 [facility] - mg tablet 00:00: 23:59 mg total) Me dical 00 :00 by mouth Center every 6 (six) hours as needed for up to 10 days. Max Daily Amount: 200 mg traMADoL No 50mg Take [address] [facility] (ULTRAM) 50 05-21 tablet (50 [facility] - mg tablet 00:00: 00:00 mg total) Me dical 00 :00 by mouth Center every 6 (six) hours as needed for up to 10 days. Max Daily Amount: 200 mg Xigduo XR Xigduo XR No Lenny [address] [facility] 02-04 [facility] - 00:00: 00:00 Memoria 00 :00 [facility] ent [facility] Ferrous Ferrous Yes Lenny [address] Sulfate Sulfate [facility] ent Clinics Estarylla Estarylla Yes Lenny [address] [facility] ent [facility] Immunizations Ordered Filled Immunization Date Status Comments [facility] e Immunization Name Name Afluria single dose Afluria single dose 2019-09-[address] [facility] - 00:00:00 [facility] Vital Signs Vital Name Observation Time Observation Value Comments Source Heart rate 2020-05-21 11:55:00 70 /min [facility] Respiratory rate 2020-05-21 11:55:00 18 /min [facility] Oxygen saturation in 2020-05-21 11:55:00 96 /min [facility] - Arterial blood by Medical Ce nter Pulse oximetry Systolic blood 2020-05-21 11:30:00 138 mm[Hg] [facility] Diastolic blood 2020-05-21 11:30:00 63 mm[Hg] [facility] Body temperature 2020-05-21 11:30:00 36.56 Charlette [facility] Body height 2020-05-20 09:00:00 144.8 cm [facility] Body weight 2020-05-20 09:00:00 113.2 kg [facility] BMI 2020-05-20 09:00:00 54.00 kg/m2 [facility] Procedures Procedure Date / Time Performed Performing Clinician [facility] e RHYTHM STRIP - SCAN 2020-05-22 13:31:17 Provider, Wong [facility] POCT-GLUCOSE METER 2020-05-21 11:32:[address] [facility] POCT-GLUCOSE METER 2020-05-21 07:36:[address] [facility] BASIC METABOLIC PANEL 2020-05-21 05:55:00 [facility] ([address] [place] [address] CBC W/PLT COUNT & AUTO 2020-05-21 05:55:00 [facility] MAGN[facility] 2020-05-21 05:55:00 [facility] PHOSPHORUS 2020-05-21 05:55:00 [facility] POCT-GLUCOSE METER 2020-05-21 05:49:[address] [facility] POCT-GLUCOSE METER 2020-05-20 18:27:[address] [facility] TISSUE EXAM 2020-05-20 17:33:[address] [facility] ROBOTIC 2020-05-20 13:35:00 Nanci Delaney [facility] - LAPAROSCOPY,LONGITUDINAL [facility] SLEEVE GASTRECTOMY UPPER ENDOSCOPY 2020-05-20 13:35:[address] [facility] PROCEDURE W/ DAVINCI XI 2020-05-20 13:35:[address] [facility] BASIC METABOLIC PANEL 2020-05-20 10:06:00 RitterFederico antoine [facility] (7) [facility] HEMOGLOBIN 2020-05-20 10:06:00 Stone Federico [facility] POCT , URINE 2020-05-20 09:48:00 Stone Federico [facility] POCT-GLUCOSE METER 2020-05-20 09:35:[address] [facility] Plan of Care Planned Activity Planned Date Details Comments Source Future Scheduled 2020-10-[address] [facility] - Test 00:00:00 (12+) [code = [facility] DEPRESSION SCREENING (12+)] Future Scheduled [address] [facility] - Test 00:00:00 malignant neoplasm of Medica l Center cervix (procedure) [code = 972268677] Future Scheduled [address] [facility] - Test 00:00:00 (procedure) [code = [facility] 47018301] Future Scheduled 2011 DTAP/TDAP/TD VACCINES [facility] Test 00:00:00 (1 - Tdap) [code = Medical C enter DTAP/TDAP/TD VACCINES (1 - Tdap)] Future Scheduled 2010 HEPATITIS C SCRE[facility]ING [facility] - Test 00:00:00 [code = HEPATITIS C [facility] SCREENING] Future Scheduled 2008 COVID-19 VACCINE (1) [facility] Test 00:00:00 [code = COVID-[address] VACCINE (1)] Encounters Start End Encounter Admission Attending Care Care Encounter Source Date/Time Date/Time Type Type Clinicians Facility Department ID 2021-04-27 2021-04-[address] [facility] [id number] [facility] 12:51:06 13:51:41 NANCI GRESHAM lege of Medicin e 2021-04-27 2021-04-27 Office Nolvia GONZALEZ 1.2.840.114 [id number] 12:51:06 13:51:41 Visit Nanci gresham AMBULATOR 350.1.13.21 G Y 0.2.7.2.686 [id number] 2021-02-17 2021-02-17 [id number] 2020-11-18 2020-11-18 [facility] [id number] 2020-10-20 2020-10-20 [facility] [id number] [facility] 2020-08-26 2020-08-[address] [facility] [id number] [facility] 2020-08-11 2020-08-11 Office Linh, BCM [id number] 13:34:04 15:28:15 Visit Anabelle AMBULATOR 350.1.13.21 Y 0.2.7.2.686 [id number] 2020-08-11 2020-08-11 Office Antoniluis carlos, BC 1.2.840.114 [id number] 12:57:02 15:27:55 Visit Vimbai A AMBULATOR 350.1.13.21 Y 0.2.7.2.686 [id number] 2020-08-06 2020-08-[address] [facility] [id number] [facility] 2020-07-20 2020-07-20 [facility] [id number] [facility] 2020-07-06 2020-07-06 [facility] [id number] [facility] 2020-06-23 2020-06-23 [facility] [id number] 13:50:00 13:50:00 t [employer] [facility] l Medicine Outpati ent Clinics 2020-06-11 2020-06-[address] [facility] 1.2.840.114 [id number] 14:22:31 16:46:21 Visit Nanci gresham AMBULATOR 350.1.13.21 G Y 0.2.7.2.686 [id number] 2020-06-11 2020-06-[address] [facility] 1.2.840.114 [id number] 14:23:28 16:45:22 Visit Anabelle AMBULATOR 350.1.13.21 Y 0.2.7.2.686 [id number] [facility] 2020-05-28 2020-05-[address] [facility] 1.2.840.114 [id number] 11:37:39 15:53:47 Visit Nanci gresham AMBULATOR 350.1.13.21 G Y 0.2.7.2.686 [id number] [facility] 2020-05-28 2020-05-28 [facility] 1.2.840.114 [id number] 11:37:17 15:53:20 Visit Anabelle AMBULATOR 350.1.13.21 Y 0.2.7.2.686 [id number] [facility] 2020-05-06 2020-05-06 [facility] [id number] 10:45:00 10:45:00 t [employer] [facility] l Medicine Outpati ent Clinics 2020-04-24 2020-04-24 [facility] [id number] 08:24:00 08:24:00 t [employer] [facility] l Medicine Outpati ent Clinics 2020-03-25 2020-03-25 [facility] [id number] 14:45:00 14:45:00 t [employer] [facility] l Medicine Outpati ent Clinics 2020-02-27 2020-02-27 [facility] [id number] 10:00:00 10:00:[address] [facility] 2020-02-05 2020-02-05 [facility] [id number] 10:30:00 10:30:00 [facility] ent Clinics 2019-11-06 2019-11-06 [facility] [id number] 10:15:00 10:15:00 [facility] ent [facility] 2019-10-31 2019-10-31 Office Nolvia COLEMAN 1.2.840.114 [id number] 09:18:07 13:13:00 Visit Nanci gresham AMBULATOR 350.1.13.21 G Y 0.2.7.2.686 [id number] 2019-10-29 2019-10-29 [facility] [id number] 16:46:00 16:46:00 [facility] ent Clinics 2019-09-02 2019-09-02 [facility] [id number] 14:15:00 14:15:00 [facility] ent [facility] 2019-07-25 2019-07-25 Office CARLOS Samuels 1.2.840.114 [id number] 09:45:38 11:06:08 Visit Swapna AMBULATOR 350.1.13.21 Chelo Y 0.2.7.2.686 [id number] 2019-07-25 2019-07-25 Office CARLOS Melton 1.2.840.114 [id number] 08:36:08 10:04:38 Visit Anabelle AMBULATOR 350.1.13.21 Y 0.2.7.2.686 [id number] 2019-07-08 2019-07-08 [facility] [id number] 11:30:00 11:30:00 [facility] 2019-06-20 2019-06-20 Office CARLOS Samuels 1.2.840.114 [id number] 11:59:31 13:59:31 Visit Swapna AMBULATOR 350.1.13.21 Chelo Y 0.2.7.2.686 [id number] 2019-06-17 2019-06-17 Office CARLOS Melton 1.2.840.114 [id number] 09:18:50 13:16:45 Visit Anabelle AMBULATOR 350.1.13.21 Y 0.2.7.2.686 [id number] 2019-05-15 2019-05-15 Office JARED Melton 1.2.840.114 [id number] 12:18:21 14:39:30 Visit Anabelle AMBULATOR 350.1.13.21 Y 0.2.7.2.686 [id number] 2018-11-30 2018-11-30 [facility] [id number] 09:30:00 09:30:00 [place] [employer] [place] [facility] - Drive [facility] Medicine Outpati ent Clinics 2018-07-25 2018-07-25 [facility] [id number] 14:30:00 14:30:00 [place] [employer] [facility] s - Drive [facility] Medicine Outpati ent Clinics 2018-05-25 2018-05-25 [facility] [id number] 10:00:00 10:00:00 [place] [employer] [facility] s - Drive [facility] Medicine Outpati ent Clinics 2018-05-15 2018-05-15 [facility] [id number] 15:05:00 15:05:00 [place] [employer] [facility] s - Drive [facility] Medicine Outpati ent Clinics 2018-04-17 2018-04-17 [facility] [id number] 14:59:00 14:59:[address] Luke s - [address] [facility] Medicine Outpati ent Clinics 2018-03-14 2018-03-14 [facility] [id number] 11:15:00 11:15:[address] Luke s - [address] [facility] Medicine Outpati ent Clinics 2018-01-24 2018-01-24 [facility] [id number] 13:30:00 13:30:00 [employer] [facility] Results Test Description Test Time Test Comments Results Result Comments Source Tissue Exam 2020-05-27 18:22:00 Test Item Value Reference Range Interpretation Comme nts Case Report (test code = 104) Surgical Pathology Report Case: [id number] Authorizing Provider: Nanci Delaney Collected: 05/20/2020 05:33 PM MD Ricardo Ordering Location: [facility] PERIOPERATIVE Received: 05/21/2020 08:58 AM SERVICES Pathologist: Jennifer León MD Specimen: Stomach, partial gastrectomy ADDENDUM (test code = 3381) g1dnpUDjPDBtiPLjZeHrVDZfCQKei7ruETQscPR uZ [file] UmETzzXZMuuGbqzR3lUbTmElAsTRfvRJX7 DIAGNOSIS (test code = 3220) q0badHMsWYMil8txWXXzyPDkFvEvEcEjWhKfLd pcd MJnULycotMqDIwbr9OrN3AxHhRuUIsjodWtKVRaRx wrozokWJTnZOY8lbItKZAfSDmrLFAkXGoiRb8uyHM raSctQzYgAHLpa8ghbsZQllalqPg7r8efJCOcOhB9 uQQnTMqnT9rfxwFcnATqCJBhHMp4kP70KOPtgL0nr IMsAFjvuqOlDgR4STisEFWiQrH3ISWchTSbOZCfT9 hdSEUbVJjdZBEkVPpnhQJbWSZ5uFtrs0S5fEFprST ebIjoHbUeBxDfSMMFh9HdLRr5kSfzZ5JqDAYuJdA0 pZHpYYGmQRijLBLwSWJjibC6mF54FVcqksM3gEZwl 3Fxb83fz836qU4spTXbYZY7LUQgHKPmbQRzRESbQO U0LYGepAItN2x8NjXdhWVvV8N5GpDgpQNqM3G5TqD fnWLwM3B1GtDcbFYjXXThuNYwTd9gdVFguZNxal2t op32RDT5t6NjtXhzYQD5DKC9TdLlHi2zqNRjYTUmJ D2dHvEalENgHQQimd60vBszFAnegiFflC8xGrSeQY ReiIVcQCOpYI8jmDEzSDDiwQ7qhhpcYPTnNpShxjg tEUDfvYakckMuHs2cwRbuKTQ3RMgjR7rfkR4mEcY3 BUovH9ijpG6xMHd5OVoxuLC1EMKbgH4pJY1zliddi 7fzFoOhJU5lkytsq5fdVmRbLU6yisz0l9krKfYzAD 4virkjk7egDlDaIEhjKOXslixvUCKgy8BpayoxUET fh9VuS6AnmZjwW98gfMiiP19uHFMysIbfxJ5anJjk qT6qJwReIvVjDRrxoCyneBDzmiklVTuxysEzGZnwm foxZBGjEUlnA9kiYdVcDCMybWjrCNjtg9PgEXYeTO IjWsHhN0MLDOJYLSajTIOYHFcQJQIXOZBBLbOAWH9 SGTuivKAsRLSxLGHLIv4MJUYpL1MHDXIZZVbXIQeH BZksAsNAN4PIRhLwBSbOPZpENJUkIh8IGKwXYCCYY ROtaoOnYGJBTnCEWdOKY2GILtGXUH9FTCPUMDQVIK FiLNYKY9QOSMSWCBJIGuKYUUiYI55FSdQGLIKIOM9 nxKYvDSNfTVvQEaWIHX7iP4JYUtPZWVJQFVcPGPDD DzBEQHvNH62DPIJRHZEoYImDY9OKYCeCLOQOFV8ZH IGGIzX6TLQWVNDMQXTTJHCTPD0BKHUYPPcZBKBXBP rUV3obAFC9s6kkaABrEAEqjAXvSRKzPYijkuNnTNF gNwswngrsTXQuNSD7wmQqBJRbGXpxUPGtEWgoEe1u oRRdwZbwReXmLFKnk4trhmYLmhjauYp2l6ndLIUbU lC9vKPdAZmbO3iaurQdyHGnNKBzHBl4lQ71WXMabI 6arJPzRIrdkgKvJlJ3XAykQACxQlE8GGDrfZSvWVE iF7boKVCjDBofTAKhVTzndJKhBCT5tBgrx7R9hDEb oULthNfqJqBkHtVwGfFMb1TrYPw3tSvaN4FvOAYmY wC1rNBdVZEgWGlqPQGoLOJblyD0lY44GVrcxmY0bV Pub1Hmn34le032uO6dvMHdYLR0WTTvRWJlmABoKKL eYES4XDSidNWvB6ynTILzYP3wmxoaNRicZPpwIBAe qUQ4ECNvdXIrW0KcOBQaYEkwOPPscwp7VcKfAi9jd FCipRqjWSfrq3qnd0vkvQNkOhq6ORWgYcVxOxfuKJ vut5Pof7kqNISidd1vDNG1aYOlyRcxi0F5kZRrFZQ odZOkVVHvQA4xqOOhPILafJ1loxboAMUcUyQjwhzc HFNsvFvizdOfDi3gyJtuJTK5BJeaD5zexV7bInC5U EkvU6stzM8bVGb5PHpjFNHbkPF4zkP0IZFdvLRhK6 KetJ4qDXZrQV0qxwk7b3axXKP1WQbyJJSzShU4xyR 4ESHsfKGiJNBinKqdIKtbn066KMT4ZdJjGTTvf3Ss L1NrmHlmJ28ooLpgA99rPSUleNzzoD2xsAhveF7bM nCnZeWfUWhmwRpaFL3cCTTkE8mywVIeGTLyJYXdZ9 dcWlRsnY9pvMtnTYplscCfUTGuPaz0RXPwpXOeJWB wEdd1DMGgSYMkA73pefqbKVI7yZ3dy6bvw6IiVGwt NQM8VSGwr11eWIqzkuE8NTgiRx2eJiBgDSB7RXilB XJ9fQ== CPT Code(s) (test code = 3357) h7bsfSJdWEOdrGPaWtChZFBnUXNvw3bhKGCn bGFuZ xZuFxQiRkKxRsseuLFgJULuKhXaa7hne728bYJuj8 xvMFCxHxN6eLZdKGOcwGSyW458l0vbu2pvwfXfsXH 3RSQvLXF0AFdiuyYcmoP3BDghzNNyBrI7BSkdbgNt ZUocioFndvXePvf9OGKvC051EKT9iIqpl5xyZMP6U SVgLVCmKjBfLz5moMPbH726GULgIQKPZUUdqFv2II ZuguWuufFocPJDh960I364i7yeAVJihxVysYaIwfd as2ctP788IZNswIByvjHxKgLaJYQenIOijCJ7MVLj VQ5sgnsqFpVvUU5dakbyLbHqDF1jelv8UlUiJD0rr mliNuQbALsbCVCmdmqlFSEgv2EkgzrkKP3vZ8Vll4 Y7lT9mlHYwMPMkqQXqLuDeWVXzwx5wlRVtYWmlf6V uCXU2bfL8qMFsiPXhTFByMF30Ibpke4TeQpgxVMO5 JZAqnwVce1Jyd9ziWhYzlnDwX3qvU3XaXZEnCOSnE RKqIkBhzvJmg2Pht0SelSDkuOv9a5qgWXTxEKCmfG zmy0tpBQT1VSMxM0I9aZYoa0uwCDcxUYWrbQL8ylm kMQjkPIBhwhL2ofxeWVzzBAKgmGE9lidaRHsoQJGu ZqU0uzyqJOheDSAnRAT1BOdsw274RVM6KHqnNcjkC WdlXHBnbmNvbnRccGduZGVjXHBsYWluXHBsYWluXG OzSAMaHmRihAzaeRogaB9jRxNpEmAbYJlzNV0cHSI lI3wkkKPjCRVhEEDaB5zcImHnuN4xeFvwEQvfpjLt PPg1OeU6CIEigi0= CLINICAL HISTORY (test code = 3356) k8nkrLKrALUehPZvSyPiOPJxRLFyt4a cZGVmbGFuZ iDoElBzDpYdShjoxXEcCWEvWmCtt6pih872aPLwg3 dzHWEiZnL8zYQfBYApjZAiO471c0ilh2xwlfWfsBX 5MRElBMU7OSljxmEkvkS8KSkdqARyKjS1QOvmflOu ULhncyXfwxCwZvd8QQTjX706XKC1qSthx4kdOAX6D IJqDOBcGoQsKb1wmZDdV548ZCRiWOMWQPQzhXq1OS NujvEyttFvoULUu588F284z7slXZNirtOmmAuVxep mp6dtB041HGNgwZXvolAtLkVpKICvaMRniSH7LTBs FE3sveccGhGmZE4uwzajWqMcWG0gcae0CdJiIY6en xxwSbRaNQqgIMWyfnowJPGrr1OeutzrSP0eJ1Usi2 F9cJ9xwXKmJPCwuMNmVtYeCYJmvw1otFIyHBjnh1T kZTS9ssY0bLHomGVwEUZfLS54Bdekc7BiVmnbEKW2 KBUnklSnm6Bni5nqStLkyrSeW5foO9LkUFHuIETwU GZyJgIfrcKbj6Voj9WfhSGpkFo8g0uwRRHwCEJlwI hbe0pwPTG6VABnP0V7vKPba0miPFpaXFGcgJN0dcx sUBkyYRRxotC2dsmqXJqtRDItkZN4lsxnYCkxERVr MsB3uterJJjhLTDxVGK3IZuaz968LZP6NXxxRdwrZ WdlXHBnbmNvbnRccGduZGVjXHBsYWluXHBsYWluXG TeMZPyTwBxsJqxuTczkX5gHoEjDmKzSWziQF4hXLP fY4zktFYdMDFkCRPoI2kvYqNdpA0ziQvqLVztkiFr UFIuFM9mDGFxTPclf2XxmhrsCX8lyyOfHEChGvAfk CY4XOPljmIbeBGuKERmkkbct7ZlkUJ4J7WvskEjb6 vfYYJhEUUeHOKePKSpkN5zsgracX8nh335sS5alwM tTQC6udSmYRFpZagcCDR5cWDiBIWfkx6= SPECIMEN SOURCE (test code = 3377) l0yxpURtEAIeiPYtWkUbSNRiCJAvl8me ZGVmbGFuZ fEmSzRdWaBkAwnrqPBdMJSdHmUnd8boa161hNOkn3 qlIXZhOnR6lIEpLYJyrIFmR638x8mjt2hyuvLhlRD 9FJDgAHB7IOvzklTqnkU6VKaliWZlDhU7TXvxdpHg HFyqbqTvpfHyDiu3HVZyG187ZUY8gWwdz8dqYRQ8Y PJrEDZqDvCcBp0ueEGrA675QMNoIBLPPYDgmKd4TO LvsqWkkjLafJYAn815M035j6yzHQDudmHqvDxDokb ra0ywT751ORPozYZatlOeRsKmMOKxqNDmkIC2EHIu FH0jljiwOlJbOS6cbzhmKtZxAV0oozd0EfOcKJ5ma hlqHtXmKVrpJSBfydlpXJRqk4MdwpaxLJ2jT4Efh4 Z7tS2tdREyYWEsiNIbUzYoSXKrqc2ccGKpCAvar0G sGGE9gkV1kXTqsYAwUTPsOU78Svfam1TtToxtNFR3 GPCfqvYwe8Aod7acQuYnzxQxN1zcK0NwLJRtYNJbR AIpOgNbehPwv8Ozp5EbzOXsfYa4g8hmDOAsLINwvX efy6zhVDV0CJVlA6R9zICph7rjSBebMUPniZC5lfe qVGabWWNmgbD4istvJOurZXPpfVK5cygtLFwqEJLj TiD8qctcAFljLMMjZHJ8AObaf916QSV3NXqjDkqnV WdlXHBnbmNvbnRccGduZGVjXHBsYWluXHBsYWluXG ZbSWCjFvGmjOdbyZgfuE2hMlCdGuMdQIzmIV3zXPR oZ4adxAJhSYCkHVBlQ0wmNaKbzL9axMcqADrojzZz ZOZ1m71eW2pzRWZmno4= GROSS DESCRIPTION (test code = 3366) a7ikvBCwNIHkcQTnEdXvDCGwHMU df9cwLITamPUrC qStUfHnRuVgLvybeSBoIEWvSgVgo2xsp806vVJtu0 mxQJMjOaK5vNPqEWVwvZYmI160GUAtMBsgt3ngh8C rCXCdbDQut9I7BVSPdkzemIj5mXugW70se5E7Xwpo G0aeOIWlGRsuIJQpOJvikFYqRVO2MLEfGNM0GFqhu gJlhhH8TEmffBAlMxB1FUb7b4kvlTwxVVBoQVV3d9 qkCNignjToZG7zgo7avMi3k2kcwsJfTPTmBFIbcJE UAGArO1WleBitVs7plBf3vVkpTdayQNA6Qup2EH9v yw73nez6xBrvMCMfssgcSlD2QZllUZPpprdgDVs7U FxtYXJnbDcyMFxtYXJncjcyMFxtYXJndDcyMFxtYX EmMiavJVgxSSNjMNW8XLpti602BNQ2OIoeh8viy5n tgYYhYoc9APLtFtDxOsswEAeyu4Aeu8hbDFOcar1d VBE6kHNkkZdpb2Y5sQAbFDVgvWSsdsImLRZfNsY5X CxtSY7ttk38YJXtBSO4uk0txSFdwWsqquHfpEFoCR gbW7WvGOTll279LKIdS6JmJJLhl1I9kiJpQpWzNKW ukWI5jsE2AKYnCVg7zZPqfhQ1ipAzbJShH7cluU37 PnPobCTlL1TmoK98VoSujCUvO3UknF14EbZdzSJsO 7OcoZ91RkHbtPSbGTRsvAJzYf2wzPLajLRet7JshF NtZQqwN34zl184OXMqykMyF9yxiJQfqgrvvVQathd nNRflrcFdVPLzONPdTRwgDFFnARTzQoIwwWldgK7z VzOxHqOzWCDBASNgsBUySSJogxEcm4SrJFonncSoG FRqfAYpYPwqtGamlTatTKJkbWocynOljlDoNB9sIN GsX3Gnn0Qmd15zwmPmFtDgAOMsZWQet2MbfMSgbSP dkSFnFPCjGu2nVUvdQC6tPHifPE80TGYpQDGtq6Dl XH91JUXswM7agImkgfMaGuUeqK4fZGKoTLfwxYkaJ HIbJp8sUFSqKZeinkVmxeMyiYXkhGXsjObyXI8oXQ hrJIKyyf9bWFYnmhL1FO0mfAuezuuec35tl7PoHIU tFALprPVapbDpnEHmLLRsRIDfrBBluF5lhnPugqDv lARjEDUvoX1yaiP5BDApMDQexAFtYXKtuoeqMJSnL 4RubTdqVIN6xZiglAM7o8GoSE71Z13bNDV9yBG8XU Zqc7HiNCyrPO9qdf6ttQOwmRliaYVex0vklx4gLv8 nDWduH6HwfUJvjTKmfQ3dwrAuvgLytIZtexRoGzag PB0rKdIdiiXhQC30APBluzZiu9TksYfbtbGaQDWrI SK8Hu4vuIAvMSOzjjFDUT8UAo5uZEMIU7OwZAphRA J9 MICROSCOPIC DESCRIPTION (test code = b4wcmZCdRTGpnJUqXfTtICOlRPI mb1ajFESatIHhC 3371) nElVeHzCvPqBkbmbGIxIHJsHkTox0jqo849rIYdc8 loEGYtPuO5mQMzIDOlfLGuH941i7fkk3dzrlFrsMW 2UOKlITV4TReqytXjcvA4WXrsxERdGdP6LOffcnEm CUjewxVchbFtIvb6LGZmU358OZC0xPsds1gjFSK6C ESxIMDsXaVaAe1shFNiX499UQLyNUHDPXBmeAs9NC MnykLmefSlvMDUi495K714k5hwSCZfljLfkFlQxan ri6lpW935DTKvlXUjseTcQjMlNZVomPYlmCX7UHEq BF7ltgquJoLrGB5nsojaHoCxKP5gezb3ExAhTH8vw aiqAoYbFUnwLWByhcubINKmj7AzfabgMJ9mK7Qgb2 I3uD3teNDfXSCdnMVmLnPmCTCxuw2tuBRwQVctb9M uSFX4gdE9qSJehYVmJOVmKY63Lyopp9QpStrlFCJ3 TONslxPmz0Opk6sbOqLlomRlL6aeW8TjGGMxNFBfH JBpTsWsgaLpi4Roy7LoePCzkJv8o4quASBhMXDwsK mei8cfVPR9RUVoD5P0nIMxi4qcWXvoRQPvvJJ9tdw jSRwfCGLmemU2pfilUNrbSMAqiEB9cdktURhkNRQz QqR3wbsuOKzgSYIePWR2STgfd950CLN6IUlsYydoW WdlXHBnbmNvbnRccGduZGVjXHBsYWluXHBsYWluXG CfUXYdWcIcfCyyzRvprW2sAqAjJsWgGUqrES5jQTU gQ2lmfJPwNBSnNVXjF1izObBpcV6hdSjsJRlceuYw XIPDAaYAXt3SLTvcJFU9 SPECIAL STUDIES (test code = 3376) y1htlEYcMWSiz1apUNUfkITnUaKqKhMv ZnRuYmpcd [file] 9QaiK5aObtywYJszjvuVIjwofVzIOpeumdrRKWqDN ljH5hrFePlNNLsmCxxLRyjg8NhFCChBGJkIswpvsH zHEs9mfSdCDAnwbxbVXKedZlubR0eFtUqIvJqUxpc JG6tBOWyS4rciGZhHKIuSAMhQ5yuXpWwxE1oqZatW HukHqVlLmSoQiPYu262qd3eOVWsqBGznvLXrHIkoO 0mWKmzCSinLUyywPFoANykc8xcHEJgq2o0eNNzFSP ucwSgb6poMFzhajQiLNXhbWHxtDIkUJStd95fNZxm cFncsSspZQJph9KudAgxq3MgWuYsQKsvr2MsX13ot KDivLYesTteLOSvnjAaWZRqx43vj5doVEFiZmW3pU RvcIA4hCUeiTGkj0ZgtUqmDKPwp9hcPOHshz4mstm ofKBjx2QxyP4ieithZTtkcWRjeuByEMNtk5c0iYNy ROPqQSTyNKgfwEl0YEDma467yb8wmfW2hSChSDW7J WlsYWJsZSBhcmUgZXZhbHVhdGVkXHBsYWluXGYxXG ZzMjJcbGFuZzEwMzNcaGljaFxmMVxkYmNoXGYxXGx qG9gkZxGzN3LgNWMpEhKxbMSiL1ohtCOvPXJyASbv XGYxXGZzMjJcbGFuZzEwMzNcaGljaFxmMVxkYmNoX LPzHUuwT6brNiOsQ7GfVZUyRjBvVMcvyOEhznsqOS cmzbRhOEbcqebkXOCySQftT3laEhJxDESapNrrXFo ik3DkFDVgBWElDcmigsRoCUi8dwJeVQAkqnypjMEg dbdfOThchbFjAOsrjealNFYaDKgzJ2whNrBiHHHwp IecAVgor7RiRSCcYDAjFhtqtqJrYAtowKWsf8cpp8 NxO2fgoNqvkNG8VUNvZ4qmiVXasHE6AST7qZ6oFJt lneHiTTBjn7KmKVOkLPQnLyT3mN2pPXP4JdUMaMos XHBsYWluXGYxXGZzMjJcbGFuZzEwMzNcaGljaFxmM WzrQjVyARVoEEzcP3eyHzRaQ1NmEWMmQhYlgVvqPM vqWLz4AgytgNGqnbnkHRyhpgUrUHlzdhoyEUFtMDf gS2pnTfAwGJDluJhnUDsey8JiACWbKRSfJhgwztCt QNReWXSccCHlfSYXHN77NXFaLKYuuSnquV3bfHPSP JHyraK4m1O0QDvrZWKeNRw0HSpgpsUwVMOlfF1bFZ XxDA6aUIe2sjFyWEUfx9YfET2vFTNxvWObAUJ5BWH em1OpR4Pjr6AcNCNvGADvpz3rlvXuHfTKwSDnAEHb ij82QXFeFS7kG9nmCEJpRQVyylTusHYhx3FvVRZpd AC0fWKiZJ6NMnMKp79mCHIwYAGRwdHtZZJunSitdN I2sbX5wP2fLbVRcILlGmSFWHzdjtNpWVEfjy5lcgJ gQZZjJYKyc5IlgUYweHIqbzOgO5Sex2CtQVNrbb40 LNvgcLFtkb54FM9cI7Flr5QgeP8cIWcsHVIpm6Gdw BUcfZUvOXRtv5LeS9rrhoksCPjboXBgsB6iBXLcCD y4MGXwq8XaCMIpj3TnKnWueaVbRPDuDYIgNEIxeL7 6AEP9wGvrlSmwzbDeGE5nJHCasoKpEVViHGPdwF3v OAbkafPaITVexyM4u8Z4GTktKVRjpxRtMhgkOXV3r dUgyaW6yDWcV4fsmsvlRZamAZMro0FpjP6iiFWDrI Ifc9IqmHOzpPRXyZHzPP9krhLzYU9iXFX3EJyiLOJ FNZJkXJtxCFRcVIP0OAztWhnpWXY1fkQkWNSjr1Bm QQikB8zrT32pgZsbbNr0cTJjfNsidBEigYSaMQCdr rM2w4Y4INExu2VkmzfjIGDzLAbaZBWlHGUmQuEwhZ FiFhCiFgRnsSquhBawArcbNaSgZCVhAHtwG2qaEfL qFoTkNhxfEGF4eF== [facility] [id number] 18:22:00Surgical Pathology Report Case: [id number] Authorizing Provider: Nanci Delaney Collected: 05/20/2020 05:33 PM MD Ricardo [facility]ing[facility] Received: 05/21/2020 08:58 AM SERVICES Pathologist: Jennifer León MD Specimen: Stomach, partial gastrectomy his addendum is issued to report the result of immunohistochemical study for Helicobacter pylori:- POSITIVE The interpretation of this case included the use of immunohistochemistry or special stains. HELICOBACTER PYLORIImmunohistochemistry technical testing was performed at [facility], Pathology Laboratory where it was [...] perform high complexity clinical laboratory testing. CPTCODE: [id number] note that immunohistochemical study was done instead of Warthin-Starry Addendum electronically signed by Jennifer León MD on 05/27/2020 at 6:22 PMSTOMACH, PARTIAL GASTRECTOMY: - CHRONIC GASTRITIS WITH REACTIVE LYMPHOID FOLLICLES - NO INTESTINAL METAPLASIA, DYSPLASIA OR MALIGNANCY SEEN - WARTHIN-STARRY STAIN FOR HELICOBACTER PYLORI IS BEING DONE; ADDENDUM REPORT WILL FOLLOW Signing Pathologist Direct Phone Line: [phone] signed by Jennifer León MD on 05/22/2020 at 5:05 [id number] diagnosis: Morbid obesity, prediabetes, obstructive sleep apnea, [...] rugal folds. No discrete lesions are identified. Personal Service Representative sections are submitted in A1-A2. PA/pl PERFORMEDThe interpretation of this case included the use of immunohistochemistry or special stains.Control Slides Examined: In-house known positive controls were evaluated along with the test tissue. These control slides run alongside of the patients sample show appropriate staining. Internal positive and negative controls when available are evaluated Immunohistochemistry technical testing was performed at [facility], Pathology Laboratory where it was [...] to perform high complexity clinical laboratory testing.POC-Glucose [id number] 12:54:00 Test Item Value Reference Range Interpretation Comments POC-Glucose Meter (test 106 mg/dL 70-110 : TE STED AT [facility] code = 1538) [address] [facility], 770 30: Internet Marketing Manager/Techni aria ID = [id number] for Aaliyah Queen Lab Interpretation (test Normal code = 71160-5) [facility] [id number] 12:54:00 Test Item Value Reference Range Interpretation Comments POC-GLUCOSE METER 106 mg/dL 70-110 : TESTED A T [facility] 6720 (BEAKER) (test code = [facility], 1538) [address]: Internet Marketing Manager/Techni aria ID = [id number] for Addie Mcadams POCT-GLUCOSE [id number] 08:54:00 Test Item Value Reference Range Interpretation Comments POC-GLUCOSE METER 111 mg/dL 70-110 H : [facility] ([facility] (test code = [facility], 1538) [address]: Internet Marketing Manager/Techni aria ID = [id number] for Addie Mcadams Basic metabolic [id number] 06:56:00 Test Item Value Reference Range Interpretation Comments Sodium (test code = 139 meq/L 988-694 6887-2) Potassium (test code = 4.4 meq/L 3.5-5.1 2823-3) Chloride (test code = 109 meq/L 98-107 H 2075-0) CO2 (test code = 22 meq/L 22-29 2028-9) BUN (test code = 7 mg/dL 7- 3094-0) Creatinine (test code 0.67 mg/dL 0.57-1.25 = 2160-0) Glucose (test code = 114 mg/dL 70-105 H 2345-7) Calcium (test code = 8.4 mg/dL 8.4-10.2 48224-5) EGFR (test code = 106 mL/min/1.73 [place] [address]-8) NOT ACCURATE CREATININE CLEARANCE IN PREDICTING GLOMERULAR FILTRATION RATE . ESTIMATED GFR I S NOT APPLICABLE FOR DIALYSIS PATIENTS. MEGAN (test code = MEGAN) Internet Marketing Manager ID - EDASI Lab Interpretation Abnormal (test code = 14537-5) [facility] [id number] 06:56:00 Test Item Value Reference Range Interpretation [...] S NOT APPLICABLE FOR DIALYSIS PATIEN TS. Internet Marketing Manager ID - [id number] 06:54:00 Test Item Value Reference Range Interpretation Comments Magnesium (test code = 1.9 mg/dL 1.6-2.6 01766-1) MEGAN (test code = MEGAN) Internet Marketing Manager ID - EDASI Lab Interpretation (test Normal code = 67583-6) [facility] Center[facility]osph[facility]2020-08-13 06:54:00 Test Item Value Reference Range Interpretation Comments Phosphorus (test code = 2.9 mg/dL 2.3-4.7 2777-1) MEGAN (test code = MEGAN) Internet Marketing Manager ID - EDASI Lab Interpretation (test Normal code = 73556-3) [facility]OS[facility]US2020-08-13 06:54:00 Test Item Value Reference Range Interpretation Comments PHOSPHORUS (BEAKER) (test code = 2.9 mg/dL 2.3-4.7 604) Internet Marketing Manager ID - [id number] 06:54:00 Test Item Value Reference Range Interpretation Comments MAGNESIUM (BEAKER) (test code = 1.9 mg/dL 1.6-2.6 627) Internet Marketing Manager ID - EDASICBC with platelet count + automated [id number] 06:47:00 Test Item Value Reference Range Interpretation Comments WBC (test code = 6690-2) 9.6 See_Comment [A utomated message] The system [employer] generated this result transmitted ref erence range: 3.5 - 10 .5 K/L. The refe rence range was not u sed to interpret this result as normal/abnor mal. RBC (test code = 789-8) 4.17 See_Comment [Au tomated message] The system [employer] generated this result transmitted ref erence range: 3.93 - 5 .22 M/L. The refe rence range was not u sed to interpret this result as normal/abnor mal. MCHC (test code = 786-4) 31.2 See_Comment L [A utomated message] The system [employer] generated this result transmitted ref erence range: [...] See_Comment [Aut omated message] 777-3) The system [employer] generated this result transmitted ref erence range: 150 - 45 0 K/CU MM. The referen ce range was not u sed to interpret this result as normal/abnor mal. MPV (test code = 11.4 fL 9.4-12.3 61733-9) nRBC (test code = 413) 0 See_Comment [Aut omated message] The system [employer] generated this result transmitted ref erence range: [...] H [Aut omated message] 670) The system [employer] generated this result transmitted ref erence range: 1.56 - 6 .13 K/L. The refe rence range was not u sed to interpret this result as normal/abnor mal. # Lymphs (test code = 1.24 See_Comment [Auto mated message] 414) The system [employer] generated this result transmitted ref erence range: 1.18 - 3 .74 K/L. The refe rence range was not u sed to interpret this result as normal/abnor mal. # Monos (test code = 0.46 See_Comment H [Autom ated message] 415) The system [employer] generated this result transmitted ref erence range: 0.24 - 0 .36 K/L. The refe rence range was not u sed to interpret this result as normal/abnor mal. # Eos (test code = 416) 0.00 See_Comment L [Au tomated message] The system [employer] generated this result transmitted ref erence range: 0.04 - 0 .36 K/L. The refe rence range was not u sed to interpret this result as normal/abnor mal. # Baso (test code = 417) 0.01 See_Comment [A utomated message] The system [employer] generated this result transmitted ref erence range: 0.01 - 0 .08 K/L. The refe rence range was not u sed to interpret this result as normal/abnor mal. Immature 0 % 0-1 Granulocytes-Relative (test code = 2801) Lab Interpretation (test Abnormal code = 32164-6) [facility] W/PLT COUNT & AUTO [id number] 06:47:00 Test Item Value Reference Range Interpretation [...] PERCENT (BEAKER) (test code = 2801) POCT-GLUCOSE [id number] 06:00:00 Test Item Value Reference Range Interpretation Comments POC-GLUCOSE METER 120 mg/dL 70-110 H : TESTED A T [facility] 6720 (BEAKER) (test code = [place], 1538) [address]: Internet Marketing Manager/Techni aria ID = [id number] for Lori Olvera POCT-GLUCOSE [id number] 18:38:00 Test Item Value Reference Range Interpretation Comments POC-GLUCOSE METER 184 mg/dL 70-110 H : TESTED A T [facility] 6720 (BEAKER) (test code = [place], 1538) [address]: Internet Marketing Manager/Techni aria ID = [id number] for VIJAY BARKLEY BASIC METABOLIC [id number] 10:34:00 Test Item Value Reference Range Interpretation [...] S NOT APPLICABLE FOR DIALYSIS PATIEN TS. Internet Marketing Manager ID - SHANE [id number] 10:18:00 Test Item Value Reference Range Interpretation Comments Hemoglobin (test code 14.1 See_Comment [Auto mated = 786-4) message] The system which generated this result transmit sunil reference range : 11.2 - 15.7 GM/ DL. The reference range was not u sed to interpret th is result as normal/abnormal . MEGAN (test code = MEGAN) Internet Marketing Manager ID - [id number] Lab Interpretation Normal (test code = 49966-7) [facility]IN2020-08-12 10:18:00 Test Item Value Reference Range Interpretation Comments HEMOGLOBIN (BEAKER) (test code = 14.1 GM/DL 11.2-15.7 410) Internet Marketing Manager ID - [id number] , [id number] 09:48:00 Test Item Value Reference Range Interpretation Comments Test Urine, POC (test Negative code = 4583902) Control line present?, POC (test Yes code = 7075049) Background clear?, POC (test code Yes = 3757290) UPT Cassette Lot #, POC (test code 7320813 = 1468881) UPT Cassette Expiration Date, POC (test code = 4996928) [facility] [id number] 09:46:00 Test Item Value Reference Range Interpretation Comments POC-GLUCOSE METER 88 mg/dL 70-110 : TESTED A T [facility] 6720 (BEJONG) (test code = ANOOP Clements [facility], 1538) [address]: Internet Marketing Manager/Techni aria ID = [id number] for TORI THOMPSON TISSUE [id number] 17:57:00Surgical Pathology Report Case: [id number] Authorizing Provider: Alcon Ramires Collected: 04/23/2019 1316 Ordering Location: [facility] Endoscopy Received: 04/23/2019 1516 Services Pathologist: Barbie Khan MD Specimen: Biopsy, Gastric, RANDOM/BX/FORCEP STOMACH, RANDOM BIOPSY - CHRONIC ACTIVE GASTRITIS, MODERATE- NUMEROUS HELICOBACTER LIKE ORGANISMS IDENTIFIED ON WARTHIN STARRY STAIN Signing Pathologist Direct Phone Line: [phone] signed by Barbie Khan MD on 04/25/2019 at 5:57 [id number], [id number] obesity, preoperative clearanceGastric biopsy, randomPart A. Received [...] evaluated Immunohistochemistry technical testing was performed at [facility], Pathology Laboratory where it was [...] to perform high complexity clinical laboratory testing.POCT-GLUCOSE [id number] 12:12:00 Test Item Value Reference Range Interpretation Comments POC-GLUCOSE METER 104 mg/dL 70-110 TESTED AT [facility] 6720 (DOMINIC) (test code = ANOOP COH[place] 1538) [address]
--- NOTE | 2021-05-11 20:26 | ER ---
Nurse's Notes [facility] Name: Cherise Seay Age: 30 yrs Sex: Female : 1990 Arrival Date: 05/11/2021 Time: 18:09 Bed Waiting Private MD: Diagnosis: Presentation: 05/11 19:14 Chief complaint: Patient states: Epigastric pain, N/V since this morning. Denies chest ca1 pain. Coronavirus screen: Client denies travel out of the [place] in the last 14 days. nausea, vomiting. Client presents with at least one sign or symptom that may indicate coronavirus-19. Standard/surgical mask placed on the client. Provider contacted for isolation considerations. Ebola Screen: Patient negative for fever greater than or equal to 101.5 degrees Fahrenheit, and additional compatible Ebola Virus Disease symptoms Patient denies exposure to infectious person. Patient denies travel to an Ebola-affected area in the 21 days before illness onset. No symptoms or risks identified at this time. Initial Sepsis Screen: Does the patient meet any 2 criteria? No. Patient's initial sepsis screen is negative. Does the patient have a suspected source of infection? No. Patient's initial sepsis screen is negative. Risk Assessment: Do you want to hurt yourself or someone else? Patient reports no desire to harm self or others. Onset of symptoms was May 11, 2021. 19:14 Method Of Arrival: Ambulatory ca1 19:14 Acuity: BORIS 3 ca1 RATE ANALYST: 19:16 LMP 04/17/2021 ca1 Historical: - Allergies: 19:15 No Known Allergies; ca1 - Home Meds: 19:15 control [Active]; ca1 - PMHx: 19:15 Diabetes - NIDDM; ca1 - PSHx: 19:15 Gastric Sleeve; ca1 - Immunization history:: Client reports having NOT received the Covid vaccine. - Social history:: Smoking status: Patient denies any tobacco usage or history of. Assessment: 20:24 Reassessment: Pt states, "my symptoms are gone. I am just going home.". ca1 Vital Signs: 19:14 BP 116 / 70; Pulse 80; Resp 18 S; Temp 97.1(TE); Pulse Ox 100% on R/A; Weight 86.64 kg ca1 (R); Height 4 ft. 9 in. (144.78 cm) (R); Pain 8/10; 19:14 Body Mass Index 41.33 (86.64 kg, 144.78 cm) ca1 ED Course: 18:09 Patient arrived in ED. ds1 19:15 Triage completed. ca1 19:15 Arm band placed on right wrist. ca1 Administered Medications: No medications were administered Outcome: 20:25 Patient left the ED. ca1 Signatures: Jennyfer Manzano ds1 Antoinette Johns RN RN ca1 Corrections: (The following items were deleted from the chart) 20:24 19:14 Chief complaint: Patient states: Epigastric pain, N/V since this morning. ca1 ca1
[2021-05-11 21:25] VITALS: BP 116/70; TEMP 97.1; O2SAT 100
== END 2021-05-11 20:25 | disposition left against medical advice (07) ==
LOC: ER 18:06
DX: Z53.21 Procedure and treatment not carried out due to patient leaving prior to being seen by health care provider (principal); Z20.822 Contact with and (suspected) exposure to COVID-19
CPT/HCPCS: 99281; U0003

== ENCOUNTER 2021-05-12 16:42 | Observation (INO) | payer OTHER ==
--- OUTSIDE RECORDS SUMMARY | 2021-05-12 16:46 | XMS REPORT | Continuity of Care Document ---
:1990 Author Organization [facility] t Address [address] [place] [address] Care Team Providers Name Role Phone Angela DELANEY Attending Clinician Unavailable Angela Delaney MD Attending Clinician Linh HERNANDEZ Attending Clinician Ricci LARIOS, A Attending Clinician RICARDO DELANEY Attending Clinician Unavailable Ricardo Delaney MD Attending Clinician [phone] GUADALUPE Attending Clinician Christina Desir NP Attending Clinician Chelo Samuels PhD Attending Clinician JACK RAMIRES Attending Clinician Unavailable RICARDO DELANEY Admitting Clinician Unavailable JACK RAMIRES Admitting Clinician Unavailable Payers Payer Name Policy Type Policy Number Effective Date Expiration Source Date [employer] [id number] 2018 2020 00:00:00 00:00:00 [facility]-MEDICAID - [id number] 2018 MEDICAID 00:00:00 [employer] [id number] [facility] [id number] 2018 [facility] MEDICAIDMEDICAID 00:00:00 [facility] [id number] Med ical 19-Present Center Problems Condition Condition Condition Status Onset Resolution Last Treating Co mments Source Name Details Category Date Date Treatment Clinician Date Morbid Morbid Disease Active [facility] obesity obesity 12 kes - 00:00: Medical Center Allergies, Adverse Reactions, Alerts This patient has no known allergies or adverse reactions. Social History Social Habit Start Date Stop Date Quantity Comments Source History [facility] - Alcohol Std Drinks Medica l Center History [facility] - Alcohol Binge Medical Dev ter Sex Assigned At [facility] Tobacco use and 2020-05-22 2020-05-22 Never used [facility] - exposure 00:00:00 00:00:00 [facility] Alcohol intake 2020-05-22 2020-05-22 Current [facility] es - 00:00:00 00:00:00 non-drinker of Medical Ce nter alcohol (finding) History SDGA 2019-04-22 2019-04-22 1 [facility] - Alcohol Frequency 00:00:00 00:00:00 [facility] Smoking Status Start Date Stop Date Source Never smoker [facility] M edical [place] Medications Ordered Filled Start Stop Current Ordering Indication Dosage Frequency Signature Comments Components Source Medication Medication Date Date Medication? Clinician (SIG) Name Name norgestimat Yes 1{tbl} QD Take [address] e-ethinyl 8-13 tablet by [facility] - estradiol 15:09: mouth Medical (FEMYNOR) 20 daily. Center 0.25-35 mg-mcg per tablet metFORMIN 2020- No 1000mg Take 1,000 [facility] (GLUCOPHAGE 8-13 08-13 mg by [facility] - ) 1000 MG 09:24: 00:00 mouth 2 Medi nicole tablet 40 :00 (two) Center times daily with breakfast and dinner. dapaglifloz 2020- No QD Take by I St in-metformi 8-13 08-13 mouth [facility] - n (XIGDUO 09:24: 00:00 daily. Medic al XR) 5-1,000 40 :00 Center mg per ER tablet famotidine 2019- No 20mg QD Take [address] [facility] [address] (PEPCID) 20 05-21- tablet (20 L ukes - MG tablet 00:00: 23:59 mg total) Me dical 00 :00 by mouth Center daily for 90 days. acetaminoph 2019- No 1000mg Take [address] en 05-21 tablets [facility] - (TYLENOL) 00:00: 23:59 (1,000 [...] [facility] - 00:00: 00:00 [facility] 00 :00 [facility] Ferrous Ferrous Yes Lenny [address] Sulfate Sulfate [facility] Estarylla Estarylla Yes Lenny [address] [facility] ent [facility] Immunizations Ordered Filled Immunization Date Status Comments [facility] Immunization Name Name Afluria single dose Afluria single dose 2019-09-[address] [facility] - 00:00:00 [facility] Vital Signs Vital Name Observation Time Observation Value Comments Source Heart rate 2020-05-21 11:55:00 70 /min [facility] Respiratory rate 2020-05-21 11:55:00 18 /min [facility] Center Oxygen saturation in 2020-05-21 11:55:00 96 /min [facility] blood by Medical Ce nter Pulse oximetry Systolic blood 2020-05-21 11:30:00 138 mm[Hg] [facility] Diastolic blood 2020-05-21 11:30:00 63 mm[Hg] [facility] Body temperature 2020-05-21 11:30:[address] [facility] Body height 2020-05-20 09:00:00 144.8 cm [facility] Body weight 2020-05-20 09:00:00 113.2 kg [facility] BMI 2020-05-20 09:00:00 54.00 kg/m2 [facility] Procedures Procedure Date / Time Performed Performing Clinician [facility] RHYTHM STRIP - SCAN 2020-05-22 13:31:17 Provider, Wong [facility] POCT-GLUCOSE METER 2020-05-21 11:32:00 Nanci Delaney [facility] POCT-GLUCOSE METER 2020-05-21 07:36:00 Nanci Delaney [facility] BASIC METABOLIC PANEL 2020-05-21 05:55:00 [facility] CBC W/PLT COUNT & AUTO 2020-05-21 05:55:00 [facility] MAGNESIUM 2020-05-21 05:55:00 [facility] PHOSPHORUS 2020-05-21 05:55:00 [facility] POCT-GLUCOSE METER 2020-05-21 05:49:00 Nanci Delaney [facility] POCT-GLUCOSE METER 2020-05-20 18:27:00 Nacni Delaney [facility] TISSUE EXAM 2020-05-20 17:33:00 Nanci Delaney [facility] ROBOTIC 2020-05-20 13:35:00 Nanci Delaney [facility] - LAPAROSCOPY,LONGITUDINAL [facility] SLEEVE GASTRECTOMY UPPER ENDOSCOPY 2020-05-20 13:35:00 Nanci eDlaney [facility] PROCEDURE W/ DAVINCI XI 2020-05-20 13:35:00 Racheal Delaney [facility] BASIC METABOLIC PANEL 2020-05-20 10:06:[address] [facility] (7) [facility] HEMOGLOBIN 2020-05-20 10:06:[address] [facility] POCT , URINE 2020-05-20 09:48:[address] [facility] POCT-GLUCOSE METER 2020-05-20 09:35:00 Nanci Delaney [facility] Plan of Care Planned Activity Planned Date Details Comments Source Future Scheduled 2020-10-[address] [facility] - Test 00:00:00 (12+) [code = [facility] Center DEPRESSION SCREENING (12+)] Future Scheduled [address] [facility] - Test 00:00:00 malignant neoplasm of Medica l Center cervix (procedure) [code = 366682410] Future Scheduled [address] [facility] - Test 00:00:00 (procedure) [code = [facility] 16709956] Future Scheduled 2011 DTAP/TDAP/TD VACCINES [facility] - Test 00:00:00 (1 - Tdap) [code = Medical C enter DTAP/TDAP/TD VACCINES (1 - Tdap)] Future Scheduled 2010 HEPATITIS C SCRE[facility]ING [facility] - Test 00:00:00 [code = HEPATITIS C [facility] Center SCREENING] Future Scheduled 2008 COVID-19 VACCINE (1) [facility] - Test 00:00:00 [code = COVID-[address] VACCINE (1)] Encounters Start End Encounter Admission Attending Care Care Encounter Source Date/Time Date/Time Type Type Clinicians Facility Department ID 2021-04-27 2021-04-[address] [facility] [id number] [facility] 12:51:06 13:51:41 NANCI GRESHAM lege of Medicin e 2021-04-27 2021-04-27 Office Nolvia [facility] [id number] 12:51:06 13:51:41 Visit Nanci gresham AMBULATOR 350.1.13.21 G Y 0.2.7.2.686 [id number] 2021-02-17 2021-02-17 Out[facility] [id number] 2020-11-18 2020-11-18 [facility] [id number] 2020-10-20 2020-10-20 [id number] 2020-08-26 2020-08-26 [facility] [id number] 2020-08-11 2020-08-11 Office Linh, BCM [id number] 13:34:04 15:28:15 Visit Anabelle AMBULATOR 350.1.13.21 Y 0.2.7.2.686 [id number] 2020-08-11 2020-08-11 Office Ricci, BCM [id number] 12:57:02 15:27:55 Visit Vimbai A AMBULATOR 350.1.13.21 Y 0.2.7.2.686 [id number] 2020-08-06 2020-08-06 [facility] [id number] 2020-07-20 2020-07-20 [facility] [id number] [facility] 2020-07-06 2020-07-06 [facility] [id number] [facility] 2020-06-23 2020-06-23 [facility] [id number] 13:50:00 13:50:00 t MEDOP SERVICES [facility] Medicine Medicine [facility] 2020-06-11 2020-06-11 Office Nolvia [facility] 1.2.840.114 [id number] 14:22:31 16:46:21 Visit es, Nanci AMBULATOR 350.1.13.21 G Y 0.2.7.2.[id number] [facility] 2020-06-11 2020-06-11 Office Linh [facility] 1.2.840.114 [id number] 14:23:28 16:45:22 Visit Anabelle AMBULATOR 350.1.13.21 Y 0.2.7.2.[id number] [facility] 2020-05-28 2020-05-28 Office CalebBaldwinjoshua [facility] 1.2.840.114 [id number] 11:37:39 15:53:47 Visit marga, Nanci AMBULATOR 350.1.13.21 G Y 0.2.7.2.[id number] [facility] 2020-05-28 2020-05-28 [facility] 1.2.840.114 [id number] 11:37:17 15:53:20 Visit Anabelle AMBULATOR 350.1.13.21 Y 0.2.7.2.686 [id number] 2020-05-06 2020-05-06 [facility] [id number] 10:45:00 10:45:00 t MEDOP SERVICES [facility] Medicine Medicine [facility] Clin[facility] 2020-04-24 2020-04-24 [facility] [id number] 08:24:00 08:24:00 t MEDOP SERVICES [facility] Medicine Medicine Outpati ent Clinics 2020-03-25 2020-03-25 [facility] [id number] 14:45:00 14:45:00 t MEDOP SERVICES [facility] Medicine [facility] Clinics 2020-02-27 2020-02-27 [facility] [id number] 10:00:00 10:00:[address] SOS Online [employer] [address] [facility] ent Clinics 2020-02-05 2020-02-05 [facility] [id number] 10:30:00 10:30:00 [facility] s [facility] ent [facility] 2019-11-06 2019-11-06 [facility] [id number] 10:15:00 10:15:00 [facility] ent [facility] 2019-10-31 2019-10-31 Office Nolvia [facility] 1.2.840.114 [id number] 09:18:07 13:13:00 Visit Nanci gresham AMBULATOR 350.1.13.21 G Y 0.2.7.2.686 [id number] 2019-10-29 2019-10-29 [facility] [id number] 16:46:00 16:46:00 [facility] ent [facility] 2019-09-02 2019-09-02 [facility] [id number] 14:15:00 14:15:00 [facility] ent [facility] 2019-07-25 2019-07-25 Office JARED Samuels 1.2.840.114 [id number] 09:45:38 11:06:08 Visit Swapna AMBULATOR 350.1.13.21 Chelo Y 0.2.7.2.686 [id number] 2019-07-25 2019-07-25 Office JARED Melton 1.2.840.114 [id number] 08:36:08 10:04:38 Visit Anabelle AMBULATOR 350.1.13.21 Y 0.2.7.2.686 [id number] 2019-07-08 2019-07-08 [facility] [id number] 11:30:00 11:30:00 [facility] ent [facility] 2019-06-20 2019-06-20 Office Abril [facility] 1.2.840.114 [id number] 11:59:31 13:59:31 Visit Swapna AMBULATOR 350.1.13.21 Chelo Y 0.2.7.2.686 [id number] 2019-06-17 2019-06-17 Office CARLOS Melton 1.2.840.114 [id number] 09:18:50 13:16:45 Visit Anabelle AMBULATOR 350.1.13.21 Y 0.2.7.2.686 [id number] 2019-05-15 2019-05-15 Office Linh, [facility] 1.2.840.114 [id number] 12:18:21 14:39:30 Visit Anabelle AMBULATOR 350.1.13.21 Y 0.2.7.2.686 [id number] 2018-11-30 2018-11-30 [facility] [id number] 09:30:00 09:30:[address] [facility] - Drive [facility] Medicine Outpati ent Clinics 2018-07-25 2018-07-25 [facility] [id number] 14:30:00 14:30:[address] [facility] - Drive [facility] Medicine Outpati ent Clinics 2018-05-25 2018-05-25 [facility] [id number] 10:00:00 10:00:[address] [facility] - Drive [facility] Medicine Outpati ent Clinics 2018-05-15 2018-05-15 [facility] [id number] 15:05:00 15:05:[address] [facility] - Drive [facility] Medicine l Medicine Outpati ent Clinics 2018-04-17 2018-04-17 [facility] [id number] 14:59:00 14:59:[address] [facility] - Drive [facility] l Medicine Outpati ent Clinics 2018-03-14 2018-03-14 [facility] [id number] 11:15:00 11:15:[address] [facility] - Drive [facility] l Medicine Outpati ent Clinics 2018-01-24 2018-01-24 Outpatient Ruthie Hendricksfeliz [id number] 13:30:00 13:30:00 Mirror Digital [facility] Red-rabbit [facility] Clinics Results Test Description Test Time Test Comments Results Result Comments Source Tissue Exam 2020-05-27 18:22:00 Test Item Value Reference Range Interpretation Comme nts Case Report (test code = 104) Surgical Pathology Report Case: [id number] Authorizing Provider: Nanci Delaney Collected: 05/20/2020 05:33 PM MD Ricardo Ordering Location: [facility] PERIOPERATIVE Received: 05/21/2020 08:58 AM SERVICES Pathologist: Jennifer León MD Specimen: Stomach, partial gastrectomy ADDENDUM (test code = 3381) [id number]hACUazHF uZ [file] CdSLeeCDKiaYwtgO3zCjLpFwDfXLftPLN8 DIAGNOSIS (test code = 3220) s2yafJImKMOsr5ytJZVxePJvDwSkGnHqWoLxNr pcd HWpZVaqfmZxISekm2HgX1CsZsOfLFiuniVyFAXmLi gonezjAKYgYQZ2uiJaYVGaDMkjGOBhOQqgWt9rdWP ohWuaHjDvGHDdc4ijvwPEkdkvaTr1h8vdJPBmNeF0 dGGtNDtkF0ggxgGzaLZbOPMoQWk2wR91MNGfoT1jr WBkOYkmimLhKoX2SFsdHFWvScZ8FPGpyQSrDGGrH0 ceSKRcCPabZCFxXDozxYTvRBM2cTulp8V9aPJkpQI yyAtqKlFwVfAnNWKLf5EfVMh8vVueA9AqUBRaSuC5 vUPwVCFyKXnzSDCvYCWnrkK5pA30RQhhjdE7jWLam 6Chi27kt152fL7nlKPwBHH3YBLgTBGopYEcIWNlNO X5LQXoyCNgG5w6ZyGpsNOfB9G7VwCeoRGxH2I9SjU tySYcT8Z6YhDbnBSfXYPcnSCvEd1zyIWkfJIkdo3c te46NUU7h9PirQmlMEQ9FVI4CdVcCc6opDGxVMJfX S6jWoYipNMmAVBsik23jRmiTIfrnyUsbI0mTpUeGP BowAYsQDGmUH2tmBRmGXZsyF9tljutLUOyGrRlpuc uKFBcqXlsvbBmXu5bhPchQPG5MHipY9mkuF1xRjF5 TJnuA9ccbN0lLTe2URaceLK7YMPkiR5pLR2ugnnqf 0hdRmEaJN9pfguei0fnLmGbNY6zygl8l0lgCzRrNK 6afbybt3ixXhOyPSmdURGzcnbkHDFhn3AgfrzmWIW gc6TkJ3DzwNywG83dtTttB65mDBYqqAxrvK6bwHur oH2iHsRkRoQvXTusrGsvpFBnisbbUOfossFjFUlvr weiBCTlYHzxB6mqCsUcAYCxvRboSJjlw3PmSYNgQU TxIlPcF6RYXGPVWGygOPNMKDzCKTVKOTITXnGQYF9 GJQamwPJcCFDdIZBMHl8BGAGbR8PJNXDSLMcTLAzO MKwsQrLCI9ZGPuOaMHxQITcFMYGrJd1SWQyBSHUKC RVsniRmUCPLIlEYOgOSW2RPZcCYWN9JDPZPABHXRH QyLKESL6VMPCKBJUZVMvOIGKyDO20AOqBGJZRYSW3 guIOkANWyKChOMqAGJZ9tI2YNHoBXKJMUEPrRSVAC GuACSZmLW17YPHPBOCMeSDdWC1PRHWyIXPJCFF6JZ XOIVbM1HEVVMIGBXFOUQBZOXD4MFZCEDYhYNULVDC hBD1smXDT0i9nixECdZVOhdQInVREyUQcfcgEeRTB pCxihfjgzRMRrXBW9xpTyRFCtHLsjEKTxQFsqZs0o pHQjaJelPxIaYOAam5icivBUjbenhNb3w4tbHOKeF qU7gPEbSOaoP8rbbpNjkQWyAMRvFIs0eU07OAKspC 3jrKVwNAtxnrEaRyE5NYbmNCUyBgC3NSJgtOBvVYF dB6pcNMPuDDoqKGTxDSmlhJNpYVI1zVxew3D3dZZn eEPzlCeoHiCuInFuOdJRv9RwWXc1eWqiO8BtSGBzH lD0bHIlGVUoRJqjPODrNMNeqxG0nS50GZfrluO3gK Xco2Jyu46oh895bQ7epRWpBAL1RDLeGCNmnEUvYJR eOBD6NJFnlODjY4anJCWxAJ1pbbswBMouZJkeJHPk yZV7CAXuuZTyV4XsUJLqFSbwGTPeiqb7RwVeEv7di PVxiLbmXRzpi3kwg8vdbZJsKbi7FMDvZfJhJbebMF mwe2Qqg2lfLGSzim3eLGZ1nWEavFmwb7V7oMNqPKX pbPYjUNQkZP3gtXJwACWvjP2casswKJUgUiUqxxwd DPUpaMrayyByZi4zdJdyWOV6MZckH4nzwN9tIrF1A FroL3bieX6sWAr6UOpmKAFpmGB2qnU1CBMxfADqL7 HjzI7cLJJaZJ0ibps9m2goUHF9UYvtEQNbChI6aqO 3TTBmwERbUVElsLwbKUkhe979EGS7XgJnUQAlo7Md R1WtyQuqE63sbAoqW41wTTKkeItwgO0nxMasfB0cT hDhJjAnRHmbePriNY3vFWFwL2ssxUQaGBTeUZHpR6 ciZcZizC1eyGyoXEzzatLoGCZaZcq8KEQpxHNcFIA tQgv9NECxBZQkO64khmowWYG1yW0bd2pys5GfDWhj DWG6CFLbz85uWFauvdB7HCzuRz4wEoYzNSQ5XPfhY XJ9fQ== CPT Code(s) (test code = 3357) q0xpeICdGRDpdDKlZdKrRYTtOKNvv8grMZDp bGFuZ nEyBhZkBzRrSbwcgCXsLYGoSwFkr9rdg732tFQtq4 rhWKYpEtM7dFBxQBPdbBVgD917v0wjx7pjveTenHG 5XFVlMEO1NXuzgwSmbiC7SVpxdRSlXxP0JGgopiLi ZEeqscFqsgNgCka6OGScV430ARK7sDwio3wiRUJ0Z EXdNNDyHcLdPu5goDJrK642USYjPLYKOBTuzNu6OM WwzyUuveNumAZRz457Y279i0wwIMZmckBsbObWrmh up4hyM405YPHyfBHtuuBmBgOsGYZicHMptQW8CXFm AD6rxitoLrImOU2cthbwXzJwOA1vmjx3NmVxVA6qe yrsOmCeYLpjFHAczfhiSFZgm3TociahNP9dU6Hey8 S4vO7omCCwUVTqqTYfCbSeKRZwsm5nmWZgHOleb9I rNMB3gvY6wEScgAOaMDPtMR72Bynoy6ExBxmrJGT8 SLWwvkNeo1Xhn0rrSiWzhoPcF4fcA0SbODTzREZiJ UDiXyPgwfPqe2Pfa4EzlVYrgJn8k9vfEOUsASVugS jng4jpVCF5YJHxK2Y0uUUnn0acQItqEMJqmFM7yjw hGMycGXAgdpT4towcZWgvSMOjaAB8ucapNOckZRKr HnK0jbqoJVxySSRdZVQ1OQhqe913FMT2LOhoUoucW WdlXHBnbmNvbnRccGduZGVjXHBsYWluXHBsYWluXG VcTPGwOkGviHsftUyouI6fWgOmHuMlSJklCK4fCHX cE9qntLQxJZRuCHAaT7wkBnSnzW4zaPitMIcxlqYw PEr8BhT5SSZtqw9= CLINICAL HISTORY (test code = 3356) x2lziKXxQHOihPElSeMaETRiRJWlp7a cZGVmbGFuZ pIdXhYyZcJsRtsnlPAaFDYyFhLdj1qbx457mSOkt7 ddBOJgTjU1mDFcXNPusFBhO695z4cbp6sxktLteSV 3XOPrPPR7RSvmjuLmiwF9ETbgoZMfMrT9VEgbgnIp OLhfglPrvuNuElv6WGGaN930XMI7iBpcl9txEIG5R LMiGMWaAyJkKf9pcYFkX265VVYqYVVSOLAafPf6VH XwcdQzlwQrvGVNy273U611s6hgHLDdufKowIfShly xa7tqM350NHOswDWwidFcMpRjARSgnCPobMP9NFMs VG3wxoofUhAkYR5wadafKjNfEL3tvxj0BfMbYZ3my qxeQtEmRXffAAMgsrwjYYBry4UwqpowTZ7nY2Ude7 E9oX7ocQJeAJGsvASuLxNeVTOkvv7qnLMdIVcgu8P cTWF8ndW4wTGovNRsWJNeVB06Texlc6IrHbwmJBX6 GLUlgdVhr7Bic4xwDpMekcFvC4afN5GqHRKkYZZoR CDvLyDovvEod1Qjl9ZgfTClfIi2o2glPTVaSIMlvR owp2lpDMT5AZCvK3V9lBFxb9oaXHjsMKFffFH6mct sMRkoRTKhagG4ehjwCUanKBAajUS5rggnBMhuPEWc XbJ9yksrRYvhXNLaQRX8MZkwb480GRG7NLdzXkdrQ WdlXHBnbmNvbnRccGduZGVjXHBsYWluXHBsYWluXG DwOQRlRkUqzNklwZauaP5zRyCvDzZmTHrjQO6jICF jP2xbrODaSSRsZXCkV0tnUuJhtD5rxBywMOjcbkVd EQJaUC9iGLCdJOekr6GvesplRR2xtvRaSEKjNlMae TZ5BKCuztRawJMjGKHoispuu5IjwHX9K2DqhvUeb3 etSXXoHADwPFVlQCSumO8wcocsqK9pr127tZ6vjgO lJDE0cmRhPYPpPmgaLHG2iFEaCRYdio8= SPECIMEN SOURCE (test code = 3377) c3yqeTOoSKImkYRiEqRnHWWrEWTmf0xs ZGVmbGFuZ kBwBzGwVtCsNdqvuJJoEQBvAxUsi1wwl747qEKry7 hmGYMtMnD6sKJtYSFnbVSxS570y4uhx2wgpnHwiHP 9FTDdPNR9CKalyuPmmhK6NQwhfFYbFaB9LJinfzXm SHyfecLsdjMvJig4HZNhW651QHB3nJhbp7ekCYR4D KZgBFPeKbSxCe5xpCJrD447RFNaYLOXAKBquEk9WV DvusLiqhHpkGQKa098M629m2gzBVZmtvGfsKcGahl jz4xuM234MKAahDJdszEjRkWaJARqdJJghDA5ZXQt AO3lyyrjZkEhRE4bwscdDhUeBU9liwu6GdWnSJ0iy kllKsPmMShqSDRtlgyoXBFrz5CmcbnwGJ3xL5Omc9 K8uZ1jlYOkEUCdxVGdEeFsWQFqlf7iuFAnDCcyw2K tCTU6npZ7pMYwqQLnBNNqFI48Oukpz5LiZwjlUSJ2 ZWGigjErz9Uoc7idJpXgdaVwM7xaJ4HxBBEzBMTwS UHnTwFvpfIve9Emt1NxnGDhwQl3u6blHCHqEOKkfH urj5tnTFU1EKTtZ8F4qKKll3gsGDmjZPQmqDB4dgy qYNdwNBTipuR0hwzfUEfjFXHofQJ3azqsHSxdJEXm YnM8ieutETxwNKXvDAE6MYcoy697FKM7RTthLdwzF WdlXHBnbmNvbnRccGduZGVjXHBsYWluXHBsYWluXG WbBYEmUkDtrTkdgNhpnW1eMmRyJzXeGUxuBG6tXCI oW2qcoKOyNLUjBKHbT5xrByBwaR4bcOfzTVfpxtVb ECC4q45jC7gbZFEuuc1= GROSS DESCRIPTION (test code = 3366) a7ecvIDrQIJvdWAtAaCnSOLjRHS jb5mdLLPgrLEzU dItWtRtBkWmDmatzPUtYSHmGqMar1khk264bDAke9 cqOFMlSlM1vMQyHXGnpMFpC572EPKySVmni2wsc1S eOGQelEJsg1N4ZYHEhtisaSb2uMbhD69ng5Y7Fkte I9qkZWFrLOhzNMNpXPmnnXSeEXF6FIBnFMR1LBrsk hPgapI0LTtwbCXoZpF2OAn1e4oltVcpKWAkQNK5v4 nrIVzwtiQgTR8ywp7azPg7j0fyhqGhVMHbBWQkoWG EZZUfD4DibNcrQu9ymKs2iQqnCyedLWB3Pls5TV6b xv40cfl9eBmdZMNjlfiaRgA6TKdjDXEgfamzAQu7U FxtYXJnbDcyMFxtYXJncjcyMFxtYXJndDcyMFxtYX MaWezqLZlgPVCdWJI9FUtna514TRM9UHuzn7jaw8a gyAAzWzs6BWZqObSeBbueFAasz3Cez4olABMobb1f OLK5jDYjuYysb1O4lEHoIPXubDAaawYoXSSuSdV0D CqvPR1plh86XEAjVWI3fb1inVFeuWopcaCkcFHbRT mmJ4TxSISwz261JMViY6CoRZOsq2A3tdFzYeXnFHH kaIW3hrE8NBCnPXz0eHWkvrI7bkJqtRThW5izsQ95 ZdKubHItT7KqqW24XgEplDKsC7ItsJ51MnPlmUJoG 6BcwR64IqZmrEVrSZBauOIoCh6tiRWsoWRae8QcqO NoDUunC44es075FPJastNpM7gizCIcztdumOJwgbu vYIcolrWfRTPaYBZuFHorRSTbMTZrMyNedIfnmL7q NbYuGxXzJBFLLFNwtDTpRVQbboUvj9ViXJoglzAxC HDguGSdQYfvcHslpWwdXDNueEeuhaYuetXrZO8lNF ApT4Ibi9Tax64zddQlGmQgIOTmYGZof4TlvCCikIK jlYLeGTBqBw5qZFsxFF3yCWflXK82BMPwXQBvm3Ao QX89NRVkpZ7ghBpwooPyCdPqmE4nWNVaDGxupSzkN ANhOd7xFMGaNAxjiwVxlyVvrOMioPTwnWpvYS0oSL zpKALpmg3uFSXukiM1PK3lyCqoqpnra54so2TpJFV zCPAehMMhdsNhuHLbNYSfUDCnaXXkfK8dkjIohdKz rEIyRVKmkH7uwfO6SZEnKHXrmYVlXKVizbwmDHTcW 5JgnSgsEZE2wLvggRD4q1LtNB08K84wSTN1sAL4CW Yab2EoXJiaUQ3csk7uoNRlgIviuGFzr8gmhh7dJr7 oTIhfG7HafMXkfJLdrX6ygyWabjGwgQBfoiLaZmbq QO7yEfPylxTiTW53ZGIewuFpr1TxoDdnxcApWMAwW ST9Cy7gzJZkRUFvqiCAWQ8UZf4jABOMT5VhIRndYH J9 MICROSCOPIC DESCRIPTION (test code = j0wjmUJlGIJdaRQcBsUuNPDpGCC lx0ttLAXrwMWdZ 3371) qQiWpMhFjXcVtvgmVDnMTVpMpNff0mgc302vVGpi7 ivPAUxMeF7rTUmFOKliOUrF711s7gfh1mdxnOpySP 7CFSbCAD7LQpwbiMjfnG1TKawwOZjRjT6MMoprmRz NDkyapWmxrKtRzw6EWVlX959TIG1hUonv0xqOOQ5X WTeRVNsXjBuJu7dpCQwY014EVXqZBMGFRRowEa8UK BtmyEjrsRnxNETb755T137y6vpKETxvmHqiCeUrdi bf0lwY238XHTkdEKyzjCmLlVoGPKuhOFfeLM8HMWk EE2sdgfzRkZuPN3yvlchPjMpSR0knbs4IeZqMA7hv sycAuXkUNqeVNCjsalxVSQxb9EviucdIA0uM9Iso4 U1hO8sbDSqFRKczJWbQrAsWRMttn6kaQKqQLxsr1E oBVZ7pgH5wOWhdQLbRXJzTL97Siidr0WkFgunSEX5 JNQjmqRun9Ook8yjJyHyqgMcD7zuL1EfCHSrMKMwN SGpFhRjbjHma1Baw2VncPLhoZw0n6lhIWMaBFRhrP yyf5qcTYG2YUZiS7J3dHIpk0eiAMrjLBMtbGM6fem eEDsmJVDfnzM6nnhyRCctUJMtcKJ5jucsATzwUWQk AuE1qqauSQkcZCLqZNK3FNeur696QJT9QTlzKgzmE WdlXHBnbmNvbnRccGduZGVjXHBsYWluXHBsYWluXG GtKWByBsCuuDeceRznuR5sQlNnDfNhMZeiBY8mJRT yZ8xapNNnMPVsMUSxS3qvJeQlkW1okFrcOErcpnDf RUEQPvIEWs7QLFqjJBW9 SPECIAL STUDIES (test code = 3376) h3hqtIYfGNLjj5gyZMFaiOHwVsLvYhPb ZnRuYmpcd [file] 3ZbpU4zQtxpsJNbsihsRIhrhcIlDYzzhlksPHFsSP hqR4prIaBuXPWbaFlvRBbnq1MpNFAmPEOqVrlzsxR fPHd7ixLoOUNeatafZAHfxXhweE6uDqYgAlWtXhqr YK6cVBIgO2bwqFPgBVJnXSYtC0epRaMovW9rzCsjM TnvDhOePyZcFcSXw050ec0bYZSokDVarfKYnCJdyP 5kFBhkTLiuVIdgnLXjGImwv8erMLSax0k4wZIoOZM keuDxu1ecLRdbhpSwCVMzpROklAOfNZByv31cNUjd wAzoeXfuTZXse4UpjImeq4StJwZzNYnie1ZnU35th JRfhBKyiGmzOFAjigXcTYEsm77if7jsJANjZyX2nE PrbFP3hJJwpZTah0RpsFstDCGas2sbOULdix9ivfi gyERrl6SmzN5nqoytKWpovHLnefAjHPYts6c9fJYz SDXpSKEmUCvvaQf5GEObv566rx4uxqX7kZUcQCP7S WlsYWJsZSBhcmUgZXZhbHVhdGVkXHBsYWluXGYxXG ZzMjJcbGFuZzEwMzNcaGljaFxmMVxkYmNoXGYxXGx uR4hmPmSzT8GqZAAcEnYztDJbG0acdWAyMYDzUKpe XGYxXGZzMjJcbGFuZzEwMzNcaGljaFxmMVxkYmNoX ZChGHjjH9bdEgViD2HvZDXpAnIfNEelzLKouspnTZ xifcEnOEpjljzmIPIhBJrqH9thMdPoQWCrnAmaBOq fk1PjVPOoDWTtVwlfxbZbZYb0oiSuVIJhyyjmsONe oqwlUMqnfeFpYNvfhwleRZXjXCkyR8jbRmEgZGOgv XmbYLuva6ShPUCkNGSsWktzqaZnNAjucKYld0cjr7 QeB6vfrVaodTD5JVRhY3nxuUPaiGA3XPO6xH2sUMe gfeZxKAUny6AaZEZvGRGsElH1iC4iNVI3MxLLqOhq XHBsYWluXGYxXGZzMjJcbGFuZzEwMzNcaGljaFxmM GruVbVoPMMfYPpmD6dzRnAoE8VaXNUnOuXrjVafGY ldDBk6ZzbmgCKxdepvMJwkzoQhKWxnqcicKKLoTPj zP7cvRtAhTBSndXrzXLbxq9SpBHPkEWNmNcigwmMj NCVxBMAmmQWgvQCHDG22RCMpPLGmuRnsvW1meNZQB DQduoY0d3V6AFaoYYMoNIu5IRiqgqQvURFyrA6xTK DpGI3zLIk1biWzJZGve1LzEE4fIBXruNYrSLR1TLS lg1SoT5Mwb0HcTTTlWWRyfv1pejNxOjHPhSSoYBTy tt30TMCgHM9mF3wtTMSyTORfchKpvQStk8IoYPCef KG2sJEhXC7ZScDJt80lZLPkXUARekUpUMGwiVkguB M4bkQ5wA4dAvFCgFNuKcDYGNhmbrOvPVPjya7blhM uDSIxZTMbn6RoeVLbkCJbchEeB6Laq6YfLKUpeq29 AHjoiNTymt01ON8dL1Mef0InzD0nGJcgKVOvt2Rkx BStxEQnXLWjt4WrQ6kuipvnADnzfPTudG7uYSRjRG a7SURyd8CmZHNno0JpTbZqdhDqEYFeGDOmYRVxtZ2 8UPG1cDzhfXpomkPhJC4wQHFwwxHbISOmFBPsnR3q PDrlcjIhJRYnzcA1f6V0QCogXBSagdAfIhrgVUN8f bEdjvJ1pIMaZ7mxfrwmZJbqAOXks0DkfO1ieGLZjH Nvk1IdvGWubEICgPUuNA0nctVpCW6kTEB1TAawFOG OYGLuGTbyGSRiJJJ6HUdfUhqgJRE2tyNkFTKrf2Nz [id number]oMVLom mS2j5P2XRHxh4FnpovcZVBpBTamBEGwSMUmAkWjuF TuXyMhVrHgxOuouOehKvzgLaPdFLBhZNziB6olHvC aMgIrEgmxBBA5hS== [facility] [id number] 18:22:00Surgical Pathology Report Case: [id number] Authorizing Provider: Nanci Delaney Collected: 05/20/2020 05:33 PM MD Ricardo [facility]ing[facility] Received: 05/21/2020 08:58 AM SERVICES Pathologist: Jennifer León MD Specimen: Stomach, partial gastrectomy his addendum is issued to report the result of immunohistochemical study for Helicobacter pylori:- POSITIVE The interpretation of this case included the use of immunohistochemistry or special stains. HELICOBACTER PYLORIImmunohistochemistry technical testing was performed at [facility], Pathology Laboratory where it was developed and [...] perform high complexity clinical laboratory testing. CPTCODE: [id number] note that immunohistochemical study was done instead of Warthin-Starry Addendum electronically signed by Jennifer León MD on 05/27/2020 at 6:22 PMSTOMACH, PARTIAL GASTRECTOMY: - CHRONIC GASTRITIS WITH REACTIVE LYMPHOID FOLLICLES - NO INTESTINAL METAPLASIA, DYSPLASIA OR MALIGNANCY SEEN - WARTHIN-STARRY STAIN FOR HELICOBACTER PYLORI IS BEING DONE; ADDENDUM REPORT WILL FOLLOW Signing Pathologist Direct Phone Line: [phone] signed by Jennifer León MD on 05/22/2020 at 5:05 [id number] diagnosis: Morbid obesity, prediabetes, obstructive sleep apnea, [...] rugal folds. No discrete lesions are identified. Change Management Lead sections are submitted in A1-A2. PA/pl PERFORMEDThe interpretation of this case included the use of immunohistochemistry or special stains.Control Slides Examined: In-house known positive controls were evaluated along with the test tissue. These control slides run alongside of the patients sample show appropriate staining. Internal positive and negative controls when available are evaluated Immunohistochemistry technical testing was performed at [facility], Pathology Laboratory where it was developed and [...] to perform high complexity clinical laboratory testing.POC-Glucose [id number] 12:54:00 Test Item Value Reference Range Interpretation Comments POC-Glucose Meter (test 106 mg/dL 70-110 : TE STED AT [facility] code = 1538) [address] [facility], 770 30: Building Code Administrator/Techni aria ID = [id number] for Aaliyah Queen r Lab Interpretation (test Normal code = 94946-6) [facility] [id number] 12:54:00 Test Item Value Reference Range Interpretation Comments POC-GLUCOSE METER 106 mg/dL 70-110 : [facility] (BEAKER) (test code = [facility], 1538) [address]: Building Code Administrator/Techni aria ID = [id number] for Addie Mcadams POCT-GLUCOSE [id number] 08:54:00 Test Item Value Reference Range Interpretation Comments POC-GLUCOSE METER 111 mg/dL 70-110 H : [facility] (BEAKER) (test code = [facility], 1538) [address]: Building Code Administrator/Techni aria ID = [id number] for Addie Mcadams Basic metabolic [id number] 06:56:00 Test Item Value Reference Range Interpretation Comments Sodium (test code = 139 meq/L 471-899 8398-2) Potassium (test code = 4.4 meq/L 3.5-5.1 2823-3) Chloride (test code = 109 meq/L 98-107 H 2075-0) CO2 (test code = 22 meq/L 22-29 8-9) BUN (test code = 7 mg/dL 7-21 3094-0) Creatinine (test code 0.67 mg/dL 0.57-1.25 = 2160-0) Glucose (test code = 114 mg/dL 70-105 H 2345-7) Calcium (test code = 8.4 mg/dL 8.4-10.2 94139-0) EGFR (test code = 106 mL/min/1.73 [place] [address]-4) NOT ACCURATE CREATININE CLEARANCE IN PREDICTING GLOMERULAR FILTRATION RATE . ESTIMATED GFR I S NOT APPLICABLE FOR DIALYSIS PATIENTS. MEGAN (test code = MEGAN) Building Code Administrator ID - EDASI Lab Interpretation Abnormal (test code = 79834-4) [facility] [id number] 06:56:00 Test Item Value Reference Range Interpretation [...] S NOT APPLICABLE FOR DIALYSIS PATIEN TS. Building Code Administrator ID - [id number] 06:54:00 Test Item Value Reference Range Interpretation Comments Magnesium (test code = 1.9 mg/dL 1.6-2.6 59571-3) MEGAN (test code = MEGAN) Building Code Administrator ID - EDASI Lab Interpretation (test Normal code = 25506-3) [facility] 06:54:00 Test Item Value Reference Range Interpretation Comments Phosphorus (test code = 2.9 mg/dL 2.3-4.7 2777-1) MEGAN (test code = MEGAN) Building Code Administrator ID - EDASI Lab Interpretation (test Normal code = 33380-3) [facility] 06:54:00 Test Item Value Reference Range Interpretation Comments PHOSPHORUS (BEAKER) (test code = 2.9 mg/dL 2.3-4.7 604) Building Code Administrator ID - [id number] 06:54:00 Test Item Value Reference Range Interpretation Comments MAGNESIUM (BEAKER) (test code = 1.9 mg/dL 1.6-2.6 627) Building Code Administrator ID - EDASICBC with platelet count + automated [id number] 06:47:00 Test Item Value Reference Range Interpretation Comments WBC (test code = 6690-2) 9.6 See_Comment [A utomated message] The system [employer] generated this result transmitted ref erence range: 3.5 - 10 .5 K/L. The refe rence range was not u sed to interpret this result as normal/abnor mal. RBC (test code = 789-8) 4.17 See_Comment [Au tomated message] The system [employer] generated this result transmitted ref erence range: 3.93 - 5 .22 M/L. The refe rence range was not u sed to interpret this result as normal/abnor mal. MCHC (test code = 786-4) 31.2 See_Comment L [A utomated message] The system [employer] generated this result transmitted ref erence range: [...] See_Comment [Aut omated message] 777-3) The system [employer] generated this result transmitted ref erence range: 150 - 45 0 K/CU MM. The referen ce range was not u sed to interpret this result as normal/abnor mal. MPV (test code = 11.4 fL 9.4-12.3 56326-6) nRBC (test code = 413) 0 See_Comment [Aut omated message] The system [employer] generated this result transmitted ref erence range: [...] H [Aut omated message] 670) The system [employer] generated this result transmitted ref erence range: 1.56 - 6 .13 K/L. The refe rence range was not u sed to interpret this result as normal/abnor mal. # Lymphs (test code = 1.24 See_Comment [Auto mated message] 414) The system [employer] generated this result transmitted ref erence range: 1.18 - 3 .74 K/L. The refe rence range was not u sed to interpret this result as normal/abnor mal. # Monos (test code = 0.46 See_Comment H [Autom ated message] 415) The system [employer] generated this result transmitted ref erence range: 0.24 - 0 .36 K/L. The refe rence range was not u sed to interpret this result as normal/abnor mal. # Eos (test code = 416) 0.00 See_Comment L [Au tomated message] The system [employer] generated this result transmitted ref erence range: 0.04 - 0 .36 K/L. The refe rence range was not u sed to interpret this result as normal/abnor mal. # Baso (test code = 417) 0.01 See_Comment [A utomated message] The system [employer] generated this result transmitted ref erence range: 0.01 - 0 .08 K/L. The refe rence range was not u sed to interpret this result as normal/abnor mal. Immature 0 % 0-1 Granulocytes-Relative (test code = 2801) Lab Interpretation (test Abnormal code = 19506-7) [facility] W/PLT COUNT & AUTO [id number] 06:47:00 Test Item Value Reference Range Interpretation [...] PERCENT (BEAKER) (test code = 2801) POCT-GLUCOSE [id number] 06:00:00 Test Item Value Reference Range Interpretation Comments POC-GLUCOSE METER 120 mg/dL 70-110 H : TESTED A T [facility] 6720 (BEAKER) (test code = [place], 1538) [address]: Building Code Administrator/Techni aria ID = [id number] for Lori Olvera POCT-GLUCOSE [id number] 18:38:00 Test Item Value Reference Range Interpretation Comments POC-GLUCOSE METER 184 mg/dL 70-110 H : TESTED A T [facility] 6720 (BEAKER) (test code = [place], 1538) [address]: Building Code Administrator/Techni aria ID = [id number] for VIJAY BARKLEY BASIC METABOLIC [id number] 10:34:00 Test Item Value Reference Range Interpretation [...] S NOT APPLICABLE FOR DIALYSIS PATIEN TS. Building Code Administrator ID - SHANE [id number] 10:18:00 Test Item Value Reference Range Interpretation Comments Hemoglobin (test code 14.1 See_Comment [Auto mated = 786-4) message] The system which generated this result transmit sunil reference range : 11.2 - 15.7 GM/ DL. The reference range was not u sed to interpret th is result as normal/abnormal . MEGAN (test code = MEGAN) Building Code Administrator ID - [id number] Lab Interpretation Normal (test code = 87404-8) [facility] 10:18:00 Test Item Value Reference Range Interpretation Comments HEMOGLOBIN (BEAKER) (test code = 14.1 GM/DL 11.2-15.7 410) Building Code Administrator ID - [id number] , [id number] 09:48:00 Test Item Value Reference Range Interpretation Comments Test Urine, POC (test Negative code = 6548305) Control line present?, POC (test Yes code = 8175787) Background clear?, POC (test code Yes = 6023023) UPT Cassette Lot #, POC (test code 3310948 = 7276315) UPT Cassette Expiration Date, POC (test code = 6733530) [facility] [id number] 09:46:00 Test Item Value Reference Range Interpretation Comments POC-GLUCOSE METER 88 mg/dL 70-110 : TESTED A T [facility] 6720 (BEAKER) (test code = [facility] [place], 1538) [address]: Building Code Administrator/Techni aria ID = [id number] for TORI THOMPSON TISSUE [id number] 17:57:00Surgical Pathology Report Case: [id number] Authorizing Provider: Alcon Ramires Collected: 04/23/2019 1316 Ordering Location: [facility] Endoscopy Received: 04/23/2019 1516 Services Pathologist: Barbie Khan MD Specimen: Biopsy, Gastric, RANDOM/BX/FORCEP STOMACH, RANDOM BIOPSY - CHRONIC ACTIVE GASTRITIS, MODERATE- NUMEROUS HELICOBACTER LIKE ORGANISMS IDENTIFIED ON WARTHIN STARRY STAIN Signing Pathologist Direct Phone Line: [phone] signed by Barbie Khan MD on 04/25/2019 at 5:57 [id number], [id number] obesity, preoperative clearanceGastric biopsy, randomPart A. Received [...] evaluated Immunohistochemistry technical testing was performed at [facility], Pathology Laboratory where it was developed and [...] to perform high complexity clinical laboratory testing.POCT-GLUCOSE [id number] 12:12:00 Test Item Value Reference Range Interpretation Comments POC-GLUCOSE METER 104 mg/dL 70-110 TESTED AT [facility] 6720 (DOMINIC) (test code = [place] 1538) [address]
[2021-05-12 20:05] LABS: Absolute Lymphocytes (CBC) 2.7 K/uL (0.7-4.9); Basophils % 0.3 % (0-1.3); Hematocrit 39.4 % (36.0-45.0); Lymphocytes % 20.8 % (15.3-44.8); MPV 9.6 fL (7.6-11.3); RBC Red Blood Cell Count 4.34 M/uL (3.86-4.86)
[2021-05-12 20:19] LABS: ALT/SGPT 74 U/L (12-78); AST/SGOT 39 U/L (15-37); Albumin 3.5 g/dL (3.4-5.0); Alkaline Phosphatase 146 U/L (45-117); BUN Blood Urea Nitrogen 12 mg/dL (7-18); Bicarbonate 26 mmol/L (21-32); Bilirubin Direct 0.1 mg/dL (0-0.2); Bilirubin Total 0.3 mg/dL (0.2-1.0); Glucose Level 95 mg/dL (74-106); Lipase 169 U/L (73-393); Potassium 3.7 mmol/L (3.5-5.1); Protein, Total 8.4 g/dL (6.4-8.2); Sodium Level 141 mmol/L (136-145)
--- NOTE | 2021-05-12 21:31 | EDPHYS ---
Physician Documentation [facility] Name: Cherise Seay Age: 30 yrs Sex: Female : 1990 Arrival Date: 05/12/2021 Time: 16:47 Bed 25 Private MD: ED Physician Adalberto Simms HPI: 05/12 19:47 This 30 yrs old Female presents to ER via Ambulatory with complaints of kb Abdominal Pain. 19:47 The patient presents with abdominal pain in the upper abdomen. Onset: The kb symptoms/episode began/occurred yesterday. The symptoms do not radiate. Associated signs and symptoms: Pertinent positives: nausea, Pertinent negatives: diarrhea, fever, vomiting. The symptoms are described as constant. Modifying factors: The symptoms are alleviated by nothing, the symptoms are aggravated by nothing. Severity of pain: At its worst the pain was moderate in the emergency department the pain is unchanged. The patient has not experienced similar symptoms in the past. The patient has not recently seen a physician. Pt reports upper abd that started yesterday with nausea. States nausea has resolved but pain continues. Denies fever vomiting diarrhea.. SURFACE LAY OUT TECHNICIAN: 21:42 LMP 04/19/2021 vg1 Historical: - Allergies: 17:00 No Known Allergies; ll1 - PMHx: 17:00 Diabetes - NIDDM; ll1 - PSHx: 17:00 gastric sleeve; ll1 - Immunization history:: Client reports having NOT received the Covid vaccine. Flu vaccine is not up to date. - Social history:: Smoking status: Patient denies any tobacco usage or history of. ROS: 19:47 Constitutional: Negative for fever, chills, and weight loss. kb 19:47 Abdomen/GI: Positive for abdominal pain, nausea, Negative for vomiting, diarrhea. 19:47 All other systems are negative. Exam: 19:46 Constitutional: This is a well developed, well nourished patient who is awake, alert, kb and in no acute distress. Head/Face: Normocephalic, atraumatic. ENT: Moist Mucous membranes Cardiovascular: Regular rate and rhythm with a normal S1 and S2. No gallops, murmurs, or rubs. No pulse deficits. Respiratory: Respirations even and unlabored. No increased work of breathing, no retractions or nasal flaring. Skin: Warm, dry with normal turgor. Normal color. MS/ Extremity: Pulses equal, no cyanosis. Neurovascular intact. Full, normal range of motion. Neuro: Awake and alert, GCS 15, oriented to person, place, time, and situation. Moves all extremities. Normal gait. Psych: Awake, alert, with orientation to person, place and time. Behavior, mood, and affect are within normal limits. 19:46 Abdomen/GI: Inspection: obese Bowel sounds: normal, in all quadrants, Palpation: soft, in all quadrants, mild abdominal tenderness, in the epigastric area and right upper quadrant. Vital Signs: 16:59 BP 156 / 93; Pulse 74; Resp 16; Temp 98.4; Pulse Ox 100% ; Weight 86.64 kg; Height 4 ll1 ft. 9 in. (144.78 cm); Pain 10/10; 21:30 BP 113 / 57; Pulse 70; Resp 16; Pulse Ox 100% ; vg1 22:43 BP 133 / 70; Pulse 58; Resp 18; Pulse Ox 100% ; ea 23:16 BP 112 / 64; Pulse 70; Resp 18; Pulse Ox 98% ; ea 16:59 Body Mass Index 41.33 (86.64 kg, 144.78 cm) ll1 MDM: 19:39 Patient medically screened. kb 19:46 Data reviewed: vital signs, nurses notes. Data interpreted: Pulse oximetry: on room air kb is 100 %. Interpretation: normal. 21:26 Counseling: I had a detailed discussion with the patient and/or guardian regarding: the kb historical points, exam findings, and any diagnostic results supporting the discharge/admit diagnosis, lab results, radiology results, the need for further work-up and treatment in the hospital. Physician consultation: Abdulkadir Pate MD was contacted at 21:20, regarding consult, patient's condition, and will see patient in inpatient room. 21:27 Physician consultation: Jean Carlos MARTINEZ was contacted at 21:27, regarding admission, kb to the medical/surgical unit. patient's condition, and will see patient in ED. 05/12 19:36 Order name: Basic Metabolic Panel iw 05/12 19:36 Order name: CBC with Diff 05/12 19:36 Order name: Hepatic Function 05/12 19:36 Order name: Lipase 05/12 19:37 Order name: Basic Metabolic Panel; Complete Time: 20:30 EDMS 08/04 19:37 Order name: CBC with Automated Diff; Complete Time: 20:17 EDMS 05/12 19:37 Order name: Liver (Hepatic) Function; Complete Time: 20:30 EDMS 05/12 19:37 Order name: Lipase; Complete Time: 20:30 EDMS 05/12 22:09 Order name: COVID-19 : Document "Date of Symptom Onset" if Symptomatic. mw2 05/12 23:11 Order name: CORONAVIRUS EDMS 05/13 00:28 Order name: SARS-COV-2 RT PCR; Complete Time: 00:36 EDMS 05/13 04:08 Order name: CBC with Automated Diff EDMS 05/13 04:15 Order name: Comprehensive Metabolic Panel EDMS 05/13 09:53 Order name: Urine Dipstick-Ancillary EDMS 05/12 19:36 Order name: IV Saline Lock; Complete Time: 19:45 iw 05/12 19:36 Order name: Labs collected and sent; Complete Time: 19:45 iw 05/12 19:44 Order name: US Abdomen Limited; Complete Time: 21:52 kb Administered Medications: 21:37 Drug: NS 0.9% 1000 ml Route: IV; Rate: 125 ml/hr; Site: left antecubital; vg1 21:54 Drug: Zosyn (piperacillin-tazobactam) 3.375 grams Route: IVPB; Infused Over: 60 mins; vg1 Site: left antecubital; Disposition Summary: 05/12/21 21:31 Hospitalization Ordered Hospitalization Status: Observation kb Provider: Josue Jacobo Condition: Stable kb Problem: new kb Symptoms: are unchanged kb Bed/Room Type: Standard kb [facility]21 13:25[facility] ja Room Assignment: [facility]-(05/13/21 13:25) [facility] Diagnosis - Acute cholecystitis kb - Other cholelithiasis without obstruction kb Forms: - Medication Reconciliation Form kb - SBAR form kb Addendum: 05/14/2021 19:06 Co-signature as Attending Physician, Adalberto escobedo Signatures: Dispatcher [employer] EDHI Yadira Sethi, BODY SERVICE TEAM MEMBER-C DAQUAN-Adalberto Caceres MD MD pkl Williams, Irene, RN RN iw Garcia, Cindy, RN RN cg Aguilar, Jose, RN RN ja1 Abby Talavera RN RN vg1 Nolan Mohan RN RN ll1 Corrections: (The following items were deleted from the chart) 05/13 01:40 05/12 21:31 Telemetry/MedSurg (observation) [facility] 05/13 01:40 05/12 21:31 [facility] 05/13 13:25 01:40 [facility] ER [facility] ja1 13:25 01:40 ERHOLD- ja
--- NOTE | 2021-05-12 21:31 | ER ---
Nurse's Notes [facility] Name: Cherise Seay Age: 30 yrs Sex: Female : 1990 Arrival Date: 05/12/2021 Time: 16:47 Bed 25 Private MD: Diagnosis: Acute cholecystitis;Other cholelithiasis without obstruction Presentation: 05/12 16:59 Chief complaint: Patient states: Upper abd pain for 2 days, N/V that she had yesterday ll1 is gone today. No fever. Coronavirus screen: Client denies travel out of the [place] in the last 14 days. At this time, the client does not indicate any symptoms associated with coronavirus-19. Ebola Screen: Patient denies travel to an Ebola-affected area in the 21 days before illness onset. Initial Sepsis Screen: Does the patient meet any 2 criteria? No. Patient's initial sepsis screen is negative. Does the patient have a suspected source of infection? Yes: Acute abdominal pain. Risk Assessment: Do you want to hurt yourself or someone else? Patient reports no desire to harm self or others. Onset of symptoms was May 11, 2021. 16:59 Method Of Arrival: Ambulatory ll1 16:59 Acuity: BORIS 3 ll1 HEALTHCARE MANAGEMENT: 21:42 LMP 04/19/2021 vg1 Historical: - Allergies: 17:00 No Known Allergies; ll1 - PMHx: 17:00 Diabetes - NIDDM; ll1 - PSHx: 17:00 gastric sleeve; ll1 - Immunization history:: Client reports having NOT received the Covid vaccine. Flu vaccine is not up to date. - Social history:: Smoking status: Patient denies any tobacco usage or history of. Screenin:41 Abuse screen: Denies threats or abuse. Nutritional screening: No deficits noted. vg1 Tuberculosis screening: No symptoms or risk factors identified. Fall Risk No fall in past 12 months (0 pts). No secondary diagnosis (0 pts). IV access (20 points). Ambulatory Aid- None/Bed Rest/Nurse Assist (0 pts). Gait- Normal/Bed Rest/Wheelchair (0 pts) Mental Status- Oriented to own ability (0 pts). Total Burrows Fall Scale indicates No Risk (0-24 pts). Assessment: 21:30 General: Appears in no apparent distress. comfortable, Behavior is calm, cooperative. vg1 Pain: Complains of pain in epigastric area, right upper quadrant and left upper quadrant Pain currently is 6 out of 10 on a pain scale. Pain began 1 day ago. Neuro: Level of Consciousness is awake, alert, obeys commands, Oriented to person, place, time, situation. Cardiovascular: Patient's skin is warm and dry. Respiratory: Airway is patent Respiratory effort is even, unlabored. GI: Bowel sounds present X 4 quads. Abdomen is tender to palpation in epigastric area, right upper quadrant and left upper quadrant Reports diarrhea, nausea, vomiting, since yesterday, but denies NVD today. : No signs and/or symptoms were reported regarding the genitourinary system. EENT: No signs and/or symptoms were reported regarding the EENT system. Derm: Skin is intact, is healthy with good turgor. Musculoskeletal: Circulation, motion, and sensation intact. 23:15 Reassessment: Patient and/or family updated on plan of care and expected duration. Pain ea level reassessed. Patient is alert, oriented x 3, equal unlabored respirations, skin warm/dry/pink. Awaiting on covid results. Vital Signs: 16:59 BP 156 / 93; Pulse 74; Resp 16; Temp 98.4; Pulse Ox 100% ; Weight 86.64 kg; Height 4 ll1 ft. 9 in. (144.78 cm); Pain 10/10; 21:30 BP 113 / 57; Pulse 70; Resp 16; Pulse Ox 100% ; vg1 22:43 BP 133 / 70; Pulse 58; Resp 18; Pulse Ox 100% ; ea 23:16 BP 112 / 64; Pulse 70; Resp 18; Pulse Ox 98% ; ea 16:59 Body Mass Index 41.33 (86.64 kg, 144.78 cm) ll1 ED Course: 16:47 Patient arrived in ED. mr 17:00 Triage completed. ll1 17:01 Arm band placed on. ll1 19:39 Yadira Sethi FNP-C is [facility]. kb 19:39 Adalberto Simms MD is Attending Physician. kb 19:46 Basic Metabolic Panel Sent. ms4 19:46 CBC with Diff Sent. ms4 19:46 Hepatic Function Sent. ms4 19:46 Lipase Sent. ms4 19:46 Inserted saline lock: 20 gauge in left antecubital area, using aseptic technique. ms4 20:38 US Abdomen Limited In Process Unspecified. EDMS 20:40 Abby Talavera, RN is Primary Nurse. vg1 21:30 Josue Jacobo MD is Hospitalizing Provider. kb 21:42 Patient has correct armband on for positive identification. Bed in low position. Call vg1 light in reach. Side rails up X 1. 22:35 Report given to Pepper GOMEZ. vg1 22:43 No provider procedures requiring assistance completed. Patient admitted, IV remains in ea place. Administered Medications: 21:37 Drug: NS 0.9% 1000 ml Route: IV; Rate: 125 ml/hr; Site: left antecubital; vg1 21:54 Drug: Zosyn (piperacillin-tazobactam) 3.375 grams Route: IVPB; Infused Over: 60 mins; vg1 Site: left antecubital; Outcome: 21:31 Decision to Hospitalize by Provider. kb 22:43 Admitted to ER Hold. Please see [facility] for further documentation. ea 22:43 Condition: stable 22:43 Instructed on the need for admit, Demonstrated understanding of instructions. 05/13 14:07 Patient left the ED. tr6 Signatures: Dispatcher [employer] EDMS Yadira Sethi, MICHELLE REFURBISH TECHNICIAN-Lani YanezaMirian HartmanPepper saul, Abby Pacheco RN, ea, PATRICIA GOMEZ vg1 Nolan Mohan RN RN ll1 Verito Dickson RN RN tr6 Li Treviño RN RN ms4
[2021-05-12] MEDS ORDERED: NA CHLORIDE 0.9% 1,000 ML ONE (21:47)
[2021-05-12] MEDS ORDERED: NA CHLORIDE 0.9% 100 ML ONE (21:48)
[2021-05-12] MEDS ORDERED: PIPERACIL/TAZO 3.375 GM VIAL IV ONE (21:48)
--- NOTE | 2021-05-12 21:48 | RAD REPORT ---
EXAM DESCRIPTION: US - Abdomen Exam Limited - 05/12/2021 8:38 pm CLINICAL HISTORY: ABD PAIN COMPARISON: Abdomen Pelvis W Contrast dated 04/12/2021 FINDINGS: The gallbladder wall is thickened measuring 6 millimeters. There is mild pericholecystic f luid. Gallstones noted. The common bile duct measures 6 millimeters. This is upper limits of normal. The liver demonstrates no findings of intrahepatic biliary dilatation. IMPRESSION: Cholelithiasis with gallbladder wall thickening and pericholecystic fluid that could rep resent acute cholecystitis in the proper clinical setting.
--- NOTE | 2021-05-12 22:29 | P.HP ---
Certification for Inpatient Patient admitted to: Observation With expected LOS: <2 Midnights Patient will require the following post-hospital care: None Practitioner: I am a practitioner with admitting privileges, knowledge of patient current condition, hospital course, and medical plan of care. Services: Services provided to patient in accordance with Admission requirements found in Title 42 Section 412.3 of the Code of Federal Regulations Patient History Date of Service: 05/12/21 Primary Care Provider: None Reason for admission: Acute cholecystitis History of Present Illness: 30-year-old female with history of diabetes most type II presents emergency primary for right upper quadrant abdominal pain over the course of the last 1 to 2 days. Patient was evaluated in the emergency department, labs were significant for white blood cell count 13.1 alk phos 146. Abdominal ultrasound demonstrates cholelithiasis with gallbladder wall thickening and pericholecystic fluid that could represent acute cholecystitis. Case was discussed with general surgery prefers admission n.p.o., IV antibiotics to hospitalist service given history of diabetes. Allergies No Known Aller Allergy (Uncoded 12/12/17 11:32) Unknown - Past Medical/Surgical History -: Diabetes mellitus type 2diet controlled -: Gastric sleeve Psychosocial/ Personal History: Lives at home with family - Family History Father -: Diabetes - Social History Smoking Status: Never smoker Alcohol use: No CD- Drugs: No Caffeine use: Yes Place of Residence: Home Review of Systems 10-point ROS is otherwise unremarkable Gastrointestinal: Nausea, Vomiting, Abdominal Pain Physical Examination - Physical Exam General: Alert, In no apparent distress, Oriented x3 HEENT: Atraumatic, PERRLA, Mucous membr. moist/pink, EOMI, Sclerae nonicteric Neck: Supple, 2+ carotid pulse no bruit, No LAD, Without JVD or thyroid abnormality Respiratory: Clear to auscultation bilaterally, Normal air movement Cardiovascular: Regular rate/rhythm, Normal S1 S2 Gastrointestinal: Normal bowel sounds, Tenderness (Mild to moderate epigastric/right upper quadrant tenderness) Musculoskeletal: No tenderness Integumentary: No rashes Neurological: Normal speech, Normal strength at 5/5 x4 extr, Normal tone, Normal affect - Studies Laboratory Data (last 24 hrs) 05/12/21 19:45: WBC 13.10 H, Hgb 13.1, Hct 39.4, Plt Count 311 05/12/21 19:45: Sodium 141, Potassium 3.7, BUN 12, Creatinine 0.66, Glucose 95, Total Bilirubin 0.3, AST 39 H, ALT 74, Alkaline Phosphatase 146 H, Lipase 169 Assessment and Plan - Plan Assessment: Acute cholecystitis Diabetes type 2diet controlled Plan: Acute cholecystitis: N.p.o., IVF, IV antibiotics, general surgery consulted for additional assistance in management. Diabetes type 2diet controlled: Blood glucose 95 at this time, patient reports she has been off of medications for the last 1 to 2 years. No further eval uation necessary for this. DVT PPX: Lovenox Code status: Full Discharge Plan: Home Plan to discharge in: 24 Hours - Advance Directives Does patient have a Living Will: No Does patient have a Durable POA for Healthcare: No - Code Status/Comfort Care Code Status Assessed: Yes (Full code) Critical Care: No Time Spent Managing Pts Care (In Minutes): 55
[2021-05-13] MEDS ORDERED: MORPHINE 2 MG/ML SYR IV PRN (00:50)
[2021-05-13] MEDS ORDERED: ONDANSETRON 4 MG/2 ML VIAL IV PRN (00:50)
[2021-05-13 01:01] VITALS: BMI 41.3
[2021-05-13] MEDS: NA CHLORIDE 0.9% 1,000 ML IV SCH ×2 (01:04→05:11)
[2021-05-13] MEDS ORDERED: MORPHINE 2 MG/ML SYR ONE (01:30)
[2021-05-13] MEDS ORDERED: KCL 20 MEQ/100 mL IVPB 20 MEQ/100 ML BAG IV ONE ×2 (01:30→05:27)
[2021-05-13] MEDS ORDERED: KCL 20 MEQ/100 mL IVPB 20 MEQ/100 ML BAG IV SCH ×2 (02:00→05:00)
[2021-05-13 04:07] LABS: Absolute Lymphocytes (CBC) 3.5 K/uL (0.7-4.9); Basophils % 0.2 % (0-1.3); Hematocrit 35.7 % (36.0-45.0); Lymphocytes % 35.7 % (15.3-44.8); MPV 9.6 fL (7.6-11.3); RBC Red Blood Cell Count 3.93 M/uL (3.86-4.86)
[2021-05-13 04:11] LABS: ALT/SGPT 60 U/L (12-78); AST/SGOT 29 U/L (15-37); Albumin 3.1 g/dL (3.4-5.0); Alkaline Phosphatase 118 U/L (45-117); BUN Blood Urea Nitrogen 11 mg/dL (7-18); Bicarbonate 29 mmol/L (21-32); Bilirubin Total 0.3 mg/dL (0.2-1.0); Glucose Level 81 mg/dL (74-106); Potassium 3.9 mmol/L (3.5-5.1); Protein, Total 7.1 g/dL (6.4-8.2); Sodium Level 141 mmol/L (136-145)
[2021-05-13] MEDS ORDERED: NA CHLORIDE 0.9% 1,000 ML ONE (05:27)
--- NOTE | 2021-05-13 06:57 | P.PN ---
Subjective Date of Service: 05/13/21 Primary Care Provider: None Chief Complaint: Acute cholecystitis Subjective: Improving (pain slightly improved - mostly in RUQ/epigastrium. no nausea/vomiting, last BM yesterday, +Flatus) Physical Examination - Vital Signs Temperature: 97.6 F Blood Pressure: 121/66 Pulse: 84 Respirations: 18 Pulse Ox (%): 100 - Studies Laboratory Data (last 24 hrs) 05/12/21 19:45: WBC 13.10 H, Hgb 13.1, Hct 39.4, Plt Count 311 05/12/21 19:45: Sodium 141, Potassium 3.7, BUN 12, Creatinine 0.66, Glucose 95, Total Bilirubin 0.3, AST 39 H, ALT 74, Alkaline Phosphatase 146 H, Lipase 169 Assessment & Plan Physician Review Additional Text: Physical Exam General: AAOx3, NAD, morbidly obese HEENT: Normal conjunctiva, sclera anicteric Respiratory: Clear to auscultation bilaterally, Normal air movement Cardiovascular: Regular rate/rhythm, Normal S1 S2 Gastrointestinal: Mild to moderate epigastric/right upper quadrant tenderness, soft, nondistended Integumentary: No rashes Assessment and Plan Acute cholecystitis Diabetes type 2diet controlled s/p gastric sleeve -pain improved, afebrile, non-toxic appearing at this time -still with significant RUQ pain -general surgery to see today, OR likely today as well -continue NPO, IVF for now -pain control -accuchecks code: full Dispo: anticipate dc home in 24-48hrs pending surgical findings Time Spent Managing Pts Care (In Minutes): 30
[2021-05-13 09:53] LABS: Urine Blood 3+ (Negative); Urine Glucose Negative (Negative); Urine Protein Trace (Negative); Urine Specific Gravity >=1.030 (1.005-1.030); Urine pH 5.5 (5.0-7.0)
[2021-05-13] MEDS ORDERED: NA CHLORIDE 0.9% 250 ML ONE (10:07)
[2021-05-13] MEDS ORDERED: PIPERACIL/TAZO 3.375 GM VIAL IV ONE (10:08)
[2021-05-13] MEDS ORDERED: Ringers Lactate 1,000 ML IV ONE ×2 (10:22→12:18)
[2021-05-13] MEDS ORDERED: dexAMETHasone 10 MG/ML VIAL ONE (10:23)
[2021-05-13] MEDS ORDERED: MIDAZOLAM HCL 2 MG/2 ML INJ ONE (10:23)
[2021-05-13] MEDS ORDERED: propofoL 200 MG/20 ML VIAL IV ONE (10:23)
[2021-05-13] MEDS ORDERED: FENTANYL CITR 100 MCG/2 ML ONE ×2 (10:23→11:26)
[2021-05-13] MEDS ORDERED: KETOROLAC 30 MG/ML INJ ONE (10:23)
[2021-05-13] MEDS ORDERED: ONDANSETRON 4 MG/2 ML VIAL ONE (10:24)
[2021-05-13] MEDS ORDERED: ROCURONIUM 50 MG/5 ML VIAL IV ONE (10:24)
[2021-05-13] MEDS ORDERED: LIDOCAINE 2% MPF 5 ML VIAL ONE (10:24)
--- NOTE | 2021-05-13 11:03 | CON ---
Date of Consultation: 05/13/2021 Reason For Service: Acute cholecystitis, symptomatic cholelithiasis, diabetes, history of morbid obe sity, history of gastric stapling. History Of Present Illness: This is a case of a 30-year-old patient comes to us complaining of epiga stric right upper quadrant pain radiating to the back for about 2 days of duration, associated with n ausea. The pain persists. She came overnight to the ER, found to have acute cholecystitis. The taylor sandra was admitted for IV antibiotics and a surgical consult was obtained for cholecystectomy. The liana sidhu denies any dysuria, hematuria, hematochezia, melena. Denies any recent traveling out of the [facility]. Denies any family member sick at home. Review of Systems: Ten points otherwise unremarkable. Social History: She does not smoke. She does not drink alcohol. Allergies: NONE. Medical Problems: Diabetes type 2. Surgeries: Include gastric sleeve about a year ago. Physical Examination: General: The patient is awake, alert. HEENT: Pupils are equal and reactive. Anicteric. Neck: Supple. Chest: Clear. Abdomen: Epigastric right upper quadrant pain with Mccoy sign positive. Pelvic: Deferred. Rectal: Deferred. Breast: Deferred. Extremities: Good capillary refill. Laboratory Data: Blood work shows WBC count of 13, hemoglobin of 13.1, potassium 3.7, total bilirubi n of 0.3, lipase 169, alkaline phosphate 146. Ultrasound of the gallbladder interpreted by Dr. Wendi beasley cholelithiasis with gallbladder wall thickening and pericholecystic fluid acute cholecys titis and symptomatic cholelithiasis. Assessment: A 30-year-old patient with acute cholecystitis, symptomatic cholelithiasis, morbid obesi ty. The patient is still having abdominal pain, so we are going to proceed with laparoscopic possibl e open cholecystectomy. The benefits, alternatives, and risks of that explained to the patient which include, but not limited to infection, bleeding, damage to adjacent structures, anesthesia complicat ion, choledocholithiasis, bile leak, pancreatitis, VT, even . She also understands this may not relieve any symptoms. She might need more than one surgical intervention. She understood, signed a consent. The OR was immediately called. THOMAS/MIKE Voice ID: [id number] Report ID: [id number]
--- NOTE | 2021-05-13 11:40 | P.BOP ---
Preoperative diagnosis: intractable RUQ abd pain, acute cholecystitis, sympt cholelithiasis Postoperative diagnosis: umbilical hernia, morbid obesity, intrabdominal adhesions Primary procedure: Laparoscopic cholecystectomy Secondary procedure: Open repair of umbilical hernia Estimated blood loss: <10cc Specimen: gb, hernia sac Findings: see dictation Anesthesia: General Complications: None Transferred to: Recovery Room Condition: Good
[2021-05-13] MEDS ORDERED: GLYCOPYRROLATE 0.2 MG/ML SYR ONE (11:52)
[2021-05-13] MEDS ORDERED: NEOSTIGMINE 1 MG/ML -5 ML ONE (11:53)
[2021-05-13 12:16] VITALS: O2SAT 96
[2021-05-13] MEDS ORDERED: HYDROMORPHONE HCL 1 MG/ML INJ ONE (12:18)
[2021-05-13] MEDS ORDERED: PROMETHAZINE INJ 25 MG/ML AMP ONE (12:18)
--- NOTE | 2021-05-13 12:36 | OP ---
Date of Procedure: 05/13/2021 Surgeon: Abdulkadir Pate MD Preoperative Diagnoses: Intractable right upper quadrant abdominal pain, acute cholecystitis, sympto matic cholelithiasis, and morbid obesity. Postoperative Diagnoses: Intractable right upper quadrant abdominal pain, acute cholecystitis, sympt omatic cholelithiasis, morbid obesity, umbilical hernia, and intraabdominal adhesions. Procedures: Laparoscopic cholecystectomy and open repair of umbilical hernia. Specimen: Gallbladder, hernia sac. Anesthesia: General plus local. Indications: This is a case of a 30-year-old patient, who comes to us with an acute abdominal pain. She had gastric stapling about a year ago or a little bit less than that. She is not sure about the time. She has been doing okay, but developed this epigastric right upper quadrant pain for the last two days, diagnosed with acute cholecystitis, symptomatic cholelithiasis, intractable abdominal pain , so we offered her the options of laparoscopic possible open cholecystectomy. Benefits, alternative s, and risks including, but not limited to infection, bleeding, damage to adjacent structures, anesth esia complication, choledocholithiasis, bile leak, pancreatitis, WI, and even . She also unders tands this may not relieve any symptoms. It might need more than one surgical intervention. She und erstood and signed a consent. Description Of Procedure: The patient was brought to the operating room and placed in supine positio n. Anesthesia was done without complication. Abdominal area was prepped and draped in sterile fashi on. Marcaine 0.5% was injected for local anesthetic followed by sharp incision of skin in the suprau mbilical region. Incision was carried down to fascia, which was opened under direct vision. Periton eum was encountered and opened under direct vision. Vicryl #1 was placed inside the fascia. [place] trocar was carefully introduced. Pneumoperitoneum was obtained. I placed three more trocars, 5 mm e ach one of them in epigastric right upper quadrant under direct visualization. This allowed me to vi sualize the area. Before that, I had to take care of an umbilical hernia present in the umbilical re gion. It was integrated to an incision to put a [place] trocar through. The gallbladder shows adhesi ons of omentum to the gallbladder and omentum to the abdominal wall, so carefully using Endo Yoana c onnected to Bovie cauterizer, we took care of these adhesions and made sure there was hemostasis at a ll time. At that moment when we cleared the gallbladder, we proceeded to put a grasper in the fundus of the gallbladder, another grasper in the infundibulum, retracted the gallbladder in the inferolate ral fashion, exposing the triangle of Calot, and obtaining critical view. The cystic duct and cystic artery were clearly isolated, freed circumferentially, and a connection between those and the gallbl adder was clearly identified. I proceeded to ligate those by using at least three clips proximal and one clip distal, ligation in middle. Same was done with the cystic artery. A small little branch o f the cystic artery was also ligated using same technique. Hepatic arteries and common bile duct wer e protected at all times. At that moment, I proceeded to remove the gallbladder from the liver using Bovie cauterizer and removed from abdominal cavity using an EndoCatch through the umbilical incision . The area was inspected once again. No bile leak. No bleeding. The area of the lysis of adhesion s showed no bleeding. At that moment, I proceeded to remove the trocars and removed the trocars unde r direct vision. Deflated the pneumoperitoneum. Closed the fascia and umbilical hernia with #1 Vicr yl. Irrigated subcutaneous tissue, closed that with 3-0 chromic and the skin with crow. Sponge c ount and instrument counts were correct. The patient was sent to recovery in stable condition. THOMAS/MIKE Voice ID: [id number] Report ID: [id number]
[2021-05-13] MEDS: HYDROCODONE/APAP 5/325 MG TAB PO PRN ×2 (15:02→21:52)
[2021-05-13] MEDS: PIPER/TAZO/NS 3.375gm 3.375 GM/100 ML BAG IVPB SCH (16:43)
[2021-05-14] MEDS: PIPER/TAZO/NS 3.375gm 3.375 GM/100 ML BAG IVPB SCH ×2 (01:00→09:23)
[2021-05-14 05:43] LABS: Absolute Lymphocytes (CBC) 1.7 K/uL (0.7-4.9); Basophils % 0.1 % (0-1.3); Hematocrit 33.2 % (36.0-45.0); Lymphocytes % 19.5 % (15.3-44.8); MPV 9.7 fL (7.6-11.3); RBC Red Blood Cell Count 3.64 M/uL (3.86-4.86)
[2021-05-14 05:50] LABS: ALT/SGPT 72 U/L (12-78); AST/SGOT 38 U/L (15-37); Albumin 2.8 g/dL (3.4-5.0); Alkaline Phosphatase 95 U/L (45-117); BUN Blood Urea Nitrogen 8 mg/dL (7-18); Bicarbonate 24 mmol/L (21-32); Bilirubin Total 0.3 mg/dL (0.2-1.0); Glucose Level 99 mg/dL (74-106); Potassium 4.2 mmol/L (3.5-5.1); Protein, Total 6.7 g/dL (6.4-8.2); Sodium Level 140 mmol/L (136-145)
[2021-05-14] MEDS: HYDROCODONE/APAP 5/325 MG TAB PO PRN (06:50)
--- NOTE | 2021-05-14 11:27 | P.DS ---
Admission Date: 05/12/21 Discharge Date: 05/14/21 Primary Care Provider: None Disposition: ROUTINE DISCHARGE Discharge Condition: GOOD Reason for Admission: Acute cholecystitis Consultations: General Surgery - Dr. Pate Procedures: RUQ U/S (05/12): FINDINGS: The gallbladder wall is thickened measuring 6 millimeters. There is mild pericholecystic fluid. Gallstones noted. The common bile duct measures 6 millimeters. This is upper limits of normal. The liver demonstrates no findings of intrahepatic biliary dilatation. IMPRESSION: Cholelithiasis with gallbladder wall thickening and pericholecystic fluid that could represent acute cholecystitis in the proper clinical setting. Laparoscopic cholecystectomy and open repair of umbilical hernia by Dr. Pate (05/13) Problem List Acute cholecystitis Diabetes type 2diet controlled s/p gastric sleeve Brief History of Present Illness: 30-year-old female with history of diabetes most type II presents emergency primary for right upper quadrant abdominal pain over the course of the last 1 to 2 days. Patient was evaluated in the emergency department, labs were significant for white blood cell count 13.1 alk phos 146. Abdominal ultrasound demonstrates cholelithiasis with gallbladder wall thickening and pericholecystic fluid that could represent acute cholecystitis. Case was discussed with general surgery prefers admission n.p.o., IV antibiotics to hospitalist service given history of diabetes. Hospital Course: Dr. Pate was consulted. Patient underwent lap cholecystectomy and umbilical hernia repair on 05/13. Postoperative course was uncomplicated. Discharged with augmentin and pain control To follow up with Dr. Pate in ~1-2 weeks. Vital Signs/Physical Exam: Physical Exam General: AAOx3, NADAlert, In no apparent distress, Oriented x3 HEENT: normal conjunctiva, sclera anicteric Respiratory: Clear to auscultation bilaterally, Normal air movement Cardiovascular: Regular rate/rhythm, Normal S1 S2 Gastrointestinal: soft, mild tenderness at incisions / RUQ, dressings c/d/i Temp Pulse Resp BP Pulse Ox 97.2 F 50 17 127/68 97 05/14/21 08:00 05/14/21 08:00 05/14/21 08:00 05/14/21 08:00 05/14/21 08:00 Laboratory Data at Discharge: WBC 8.60 K/uL (4.3-10.9) 05/14/21 05:02 Hgb 11.0 g/dL (12.0-15.0) L 05/14/21 05:02 Hct 33.2 % (36.0-45.0) L 05/14/21 05:02 Plt Count 263 K/uL (152-406) 05/14/21 05:02 Sodium 140 mmol/L (136-145) 05/14/21 05:02 Potassium 4.2 mmol/L (3.5-5.1) 05/14/21 05:02 BUN 8 mg/dL (7-18) 05/14/21 05:02 Creatinine 0.55 mg/dL (0.55-1.3) 05/14/21 05:02 Glucose 99 mg/dL (74-106) 05/14/21 05:02 Total Bilirubin 0.3 mg/dL (0.2-1.0) 05/14/21 05:02 AST 38 U/L (15-37) H 05/14/21 05:02 ALT 72 U/L (12-78) 05/14/21 05:02 Alkaline Phosphatase 95 U/L (45-117) 05/14/21 05:02 Lipase 169 U/L (73-393) 05/12/21 19:45 Home Medications: Amoxicillin/Potassium Clav [Augmentin 875-125 Tablet] 1 each PO BID 10 Days #20 tablet 05/14/21 Codeine/APAP [Tylenol W/Codeine #3 tab] 1 tab PO Q8HP PRN 5 Days #15 tab 05/14/21 New Medications: Codeine/APAP [Tylenol W/Codeine #3 tab] 1 tab PO Q8HP PRN 5 Days #15 tab PRN Reason: Pain Amoxicillin/Potassium Clav [Augmentin 875-125 Tablet] 1 each PO BID 10 Days #20 tablet Physician Discharge Instructions: You were found to have acute cholecystitis (Inflammation/infection of your gallbladder), and you underwent laparoscopic cholecystectomy and open repair of small umbilical hernia. You did well after the surgery and are stable for discharge home. You are discharged home with 10 more days of antibiotic, and some pain medication. Recommend taking a daily [id number] stool softener while on pain medication. Follow-up with Dr. Pate in 1-2 weeks call his office to schedule the appo intment. Diet: [place] Activity: No lifting more than 10 lbs (x4 weeks) Followup: Abdulkadir Pate MD [ACTIVE - CAN ADMIT] - Lenny Goodrich DO [Primary Care Provider] - Time spent managing pt's care (in minutes): 45
[2021-05-14 12:04] VITALS: BP 118/73; TEMP 97.6
== END 2021-05-14 12:40 | disposition home or self-care (01) ==
LOC: ER 16:42 → ERHOLD 21:54 → 2ND-WC 05-13 14:01
PROVIDERS: ADMIT Hospitalist; ATTEND Hospitalist
PROC: 0FT44ZZ Resection of Gallbladder, Percutaneous Endoscopic Approach (ICD-10-PCS; 2021-05-13)
PROC: 0WQF0ZZ Repair Abdominal Wall, Open Approach (ICD-10-PCS; principal; 2021-05-13 10:00)
DX: K80.10 Calculus of gallbladder with chronic cholecystitis without obstruction (principal); E66.01 Morbid (severe) obesity due to excess calories; K42.9 Umbilical hernia without obstruction or gangrene; E11.9 Type 2 diabetes mellitus without complications; Z20.822 Contact with and (suspected) exposure to COVID-19
CPT/HCPCS: 85025 ×3; 80048; 36415 ×2; 80076; 88302; 88304; 81003; 83690; 80053 ×2; 76705; 96374; 99285; 49585; 47562; U0003; J2704; J2550; J2543 ×5; J3480 ×2; J2250; J3010 ×2; J1100; J2270; J1170; J2710; J7120 ×2; J7050; J7030 ×3; J2405